=== PATIENT | male | born 1940 | race Caucasian/White ===

== ENCOUNTER → 2017-08-17 10:23 | Outpatient (CLI) | payer MEDICARE, SELFPAY ==
[2017-08-17 12:32] LABS: Hemoglobin A1c 6.9 % (4.2-6.3)
[2017-08-17 12:46] LABS: Cholesterol 114 mg/dL (200); Glucose 135 mg/dL (74-106); High Density Lipoprotein 45 mg/dL; Triglycerides 99 mg/dL; Very Low Density Lipoprotein 20 mg/dL (5-40)
== END ==
PROVIDERS: Family Provider Family Medicine; PCP Family Medicine; Visit Provider Family Medicine
DX: E11.9 Type 2 diabetes mellitus without complications (principal); E78.00 Pure hypercholesterolemia, unspecified; Z12.5 Encounter for screening for malignant neoplasm of prostate
CPT/HCPCS: 36415; 80061; 82947; 83036; 84153; G0103

== ENCOUNTER → 2018-03-15 08:55 | Outpatient (CLI) | payer MEDICARE, SELFPAY ==
[2018-03-15 10:36] LABS: Hemoglobin A1c 6.9 % (4.2-6.3)
[2018-03-15 10:40] LABS: Anion Gap 10 (5-15); BUN 15 mg/dL (7-18); BUN/Creat Ratio 13.2 RATIO (10-20); Calcium,Total 9.3 mg/dL (8.5-10.1); Chloride 108 mmol/L (98-107); Creatinine, Serum 1.14 mg/dL (0.70-1.30); EST Glomerular Filtration Rate 66 mL/min (>60); Est Glom Filt Rate - Afr Amer 80 mL/min (>60); Glucose 146 mg/dL (74-106); Potassium 4.4 mmol/L (3.5-5.1); Sodium Level 141 mmol/L (136-145)
== END ==
PROVIDERS: Family Provider Family Medicine; PCP Family Medicine; Visit Provider Family Medicine
DX: I10 Essential (primary) hypertension (principal); E11.9 Type 2 diabetes mellitus without complications
CPT/HCPCS: 36415; 80048; 83036

== ENCOUNTER → 2018-09-05 09:35 | Outpatient (CLI) | payer MEDICARE, SELFPAY ==
[2018-03-17 11:40] VITALS: BMI 31.4
[2018-09-05 12:52] LABS: Cholesterol 120 mg/dL (200); Glucose 156 mg/dL (74-106); High Density Lipoprotein 45 mg/dL; PSA,Total - Annual Screen 0.77 ng/mL (0.00-4.00); Triglycerides 112 mg/dL; Very Low Density Lipoprotein 22 mg/dL (5-40)
[2018-09-05 12:59] LABS: Hemoglobin A1c 7.7 % (4.2-6.3)
== END ==
PROVIDERS: Family Provider Family Medicine; PCP Family Medicine; Referring Provider Family Medicine; Visit Provider Family Medicine
DX: E11.9 Type 2 diabetes mellitus without complications (principal); E78.00 Pure hypercholesterolemia, unspecified; Z12.5 Encounter for screening for malignant neoplasm of prostate
CPT/HCPCS: 36415; 80061; 82947; 83036; 84153; G0103

== ENCOUNTER → 2019-05-29 06:57 | Outpatient (CLI) | payer MEDICARE, SELFPAY ==
[2019-05-07 09:39] VITALS: BMI 30.9
--- NOTE | 2019-05-29 07:02 | ECHOD_ITS ---
Reason For Study: CAD/ASHD Procedure This was a 2D Doppler, Color Flow transthoracic echocardiogram. The study was technically difficult. Contrast injection was performed. Exam performed in department. Left Ventricle Normal LV size. Left ventricular systolic function is normal. The estimated ejection fraction is 65 %. No evidence for diastolic dysfunction. No regional wall motion abnormalities noted. Right Ventricle Normal RV size. Normal systolic function. Atria The left atrium is mildly enlarged. The right atrium is mildly enlarged. No doppler evidence for ASD. Bubble contrast study negative for right to left interatrial shunt. Mitral Valve There is no mitral annular calcification. Mild focal mitral valve calcification of the anterior leaflet. Trivial mitral valve insufficiency. Tricuspid Valve Normal tricuspid valve. Trivial tricuspid valve insufficiency. Right ventricular systolic pressure estimated to be 22 mmHg. Aortic Valve Trisinus/trileaflet aortic valve. Mild focal aortic valve thickening. Mild focal aortic valve calcification. Aortic sclerosis, no stenosis. Pulmonic Valve The pulmonic valve is not well visualized. Great Vessels Borderline enlarged aortic root. Pericardium/Pleural No pericardial effusion. Medication Diluted definity 2ml given slow IV push to enhance endocardial definition. Performed a rapid injection of agitated mix of 9 cc saline and 1cc air to assess for atrial septal defect. MMode/2D Measurements & Calculations LVIDd: 4.9 cm IVSd: 1.3 cm Ao root diam: 3.9 cm LVIDs: 2.5 cm LVPWd: 0.98 cm FS: 49.0 % LAV(MOD-bp): 63.2 ml LA A4 area: 21.3 cm2 RA A4 area: 20.3 cm2 LAV(MOD-bp) Indexed: 27.7 ml/m2 LAV(MOD-sp2): 64.0 ml LAV(MOD-sp4): 62.5 ml Time Measurements MV dec time: 0.18 sec Doppler Measurements & Calculations MV E max angelo: 45.7 cm/sec Lat Peak E' Angelo: 6.0 cm/sec Med Peak E' Angelo: 5.6 cm/sec MV A max angelo: 115.6 cm/sec E/E' lat: 7.6 E/E' med: 8.2 MV E/A: 0.40 MV V2 max: 118.5 cm/sec MV P1/2t max angelo: 42.3 cm/sec Ao V2 max: 99.6 cm/sec MV max P.6 mmHg MV P1/2t: 52.8 msec Ao max P.0 mmHg MV V2 mean: 49.3 cm/sec MV dec slope: 234.5 cm/sec2 MV mean P.4 mmHg MV V2 VTI: 15.6 cm MVA(P1/2t): 4.2 cm2 LV V1 max: 91.5 cm/sec PA V2 max: 110.3 cm/sec TR max angelo: 217.6 cm/sec LV V1 max P.3 mmHg TR max P.9 mmHg Interpretation Summary The study was technically difficult. Contrast injection was performed. Left ventricular systolic function is normal. The estimated ejection fraction is 65 %. The left atrium is mildly enlarged. The right atrium is mildly enlarged. Mild focal mitral valve calcification of the anterior leaflet. Trivial mitral valve insufficiency. Trivial tricuspid valve insufficiency. Aortic sclerosis, no stenosis. Borderline enlarged aortic root. Right ventricular systolic pressure estimated to be 22 mmHg. No evidence for diastolic dysfunction. Bubble contrast study negative for right to left interatrial shunt. Ordering Physician: Haja Mccain Referring Physician: Haja Mccain Performed By: Yasir Douglas RCS
--- NOTE | 2019-05-29 12:42 | STRESSREP ---
Stress Test Report Date: 05-29-19 Procedure: Exercise tolerance test/imaging study Indications: Shortness of breath/dyspnea on exertion UT: CAD; PCI Consent: Per the patient Procedure: The patient exercised on a Nguyễn protocol for 7 minutes completing Stage II and 1 minute of Stage III achieving a peak heart rate of 157 bpm (110 % predicted maximal heart rate) with a peak blood pressure 178/76 mmHg and a peak MET capacity of 8 METs. The baseline ECG demonstrated normal sinus rhythm; nonspecific T wave abnormality. The peak exercise ECG demonstrated essu-eo-ocas nonspecific ST segment variability with resolution towards baseline beginning less than 1 minute in recovery with subsequent nonspecific T wave abnormality. There was a rare PVC during exercise and recovery and an isolated ventricular triplet during exercise and an occasional PAC during recovery. The functional capacity was considered good. There was no complaint of chest discomfort during exercise or recovery. The examination was discontinued secondary to dyspnea. Impression: 1. Technically adequate (percent predicted maximal heart rate greater than 85%) exercise tolerance test 2. Peak exercise ECG with [id number] nonspecific ST segment variability with resolution towards baseline beginning less than 1 minute in recovery with subsequent nonspecific T wave abnormality 3. There was a rare PVC during exercise and recovery and an isolated ventricular triplet during exercise and an occasional PAC during recovery 4. Nuclear images pending Myocardial perfusion imaging study: Technique: The patient was injected with 15.0 mCi of technetium 99m Cardiolite and subsequently rest SPECT Cardiolite nuclear imaging was obtained in the horizontal long, vertical long, and short axis views. The patient exercised on a Nguyễn protocol for 7 minutes completing Stage II and 1 minute of Stage III achieving a peak heart rate of 157 bpm (110 % predicted maximal heart rate) with a peak blood pressure 178/76 mmHg and a peak MET capacity of 8 METs. The patient was injected with 45.0 mCi of technetium 99m Cardiolite and subsequently stress SPECT Cardiolite nuclear imaging was obtained in the horizontal long, vertical long, and short axis views. A gated Cardiolite study at peak stress was obtained. Interpretation: Rest and stress SPECT Cardiolite nuclear imaging status post realignment, normalization, and attenuation correction, demonstrates the appearance of relative uniform tracer uptake and myocardial perfusion appearing within normal limits. There is end systolic thickening and brightening. The gated Cardiolite study demonstrates myocardial thickening and inward wall motion. The reported LVEF is 55 %. Impression: 1. Rest and stress SPECT Cardiolite nuclear imaging demonstrate relative uniform tracer uptake and myocardial perfusion appearing within normal limits. 2. The gated Cardiolite study reports an LVEF of 55 %. This note was generated with [employer] software. It may contain incorrect words, spelling, and punctuation that were not noted in checking the note before signing.
== END ==
PROVIDERS: Family Provider Family Medicine; PCP Family Medicine; Referring Provider Internal Medicine Cardiovascular Disease; Visit Provider Internal Medicine Cardiovascular Disease
DX: R06.02 Shortness of breath (principal); I25.10 Atherosclerotic heart disease of native coronary artery without angina pectoris; I25.5 Ischemic cardiomyopathy; Z95.5 Presence of coronary angioplasty implant and graft
CPT/HCPCS: 78452; 93017; 93306; A9500; Q9957; A4216; C8929

== ENCOUNTER → 2019-06-14 14:23 | Outpatient (CLI) | payer MEDICARE, SELFPAY ==
[2019-05-07 09:39] VITALS: BMI 30.9
[2019-06-14 15:21] LABS: Bacteria 0 SEEN /hpf (None Seen); Mucous, Urine 0 SEEN /hpf (<or=2+); Red Blood Cells-Urine 0 SEEN /hpf (0-5)
[2019-06-14 15:39] LABS: Color, Urine Yellow (Yellow); Glucose, Dipstick Normal (Normal); Ketone-Dipstick Negative (Negative); Leukocyte Esterase-Dipstick Negative /ul (Negative); Nitrite-Dipstick Negative (Negative); Occult Blood-Urine Negative /ul (Negative); Protein-Dipstick 15 mg/dl (Negative); Specific Gravity, Urine 1.015 (1.002-1.030); Urine Bilirubin Dipstick Negative (Negative); Urine Clarity Clear (Clear); Urine Urobilinogen Normal (Normal)
[2019-06-14 15:47] LABS: Squamous Epithelial Cells - UA 0-5 SEEN /hpf (0-5); White Blood Cells 0 SEEN /hpf (0-5)
== END ==
PROVIDERS: Family Provider Family Medicine; PCP Family Medicine; Referring Provider Family Medicine; Visit Provider Family Medicine
DX: R30.0 Dysuria (principal)
CPT/HCPCS: 81001; 87086

== ENCOUNTER → 2019-09-05 08:42 | Outpatient (CLI) | payer MEDICARE, SELFPAY ==
[2019-05-07 09:39] VITALS: BMI 30.9
[2019-09-05 10:31] LABS: ALB/GLOB Ratio 0.9 RATIO (0.9-2.4); AST(SGOT) 23 U/L (15-37); Alanine Aminotransfer ALT/SGPT 42 U/L (16-61); Albumin, Serum 3.5 g/dL (3.2-5.0); Alkaline Phosphatase 125 U/L (45-117); Anion Gap 6 (5-15); BUN 13 mg/dL (7-18); BUN/Creat Ratio 11.9 RATIO (10-20); Calcium,Total 9.2 mg/dL (8.5-10.1); Chloride 106 mmol/L (98-107); Cholesterol 120 mg/dL (200); Creatinine, Serum 1.09 mg/dL (0.70-1.30); EST Glomerular Filtration Rate 69 mL/min (>60); Est Glom Filt Rate - Afr Amer 84 mL/min (>60); Glucose 146 mg/dL (74-106); High Density Lipoprotein 50 mg/dL; Potassium 4.1 mmol/L (3.5-5.1); Protein, Total 7.5 g/dL (6.4-8.2); Sodium Level 138 mmol/L (136-145); Triglycerides 90 mg/dL; Very Low Density Lipoprotein 18 mg/dL (5-40)
[2019-09-05 10:35] LABS: Hemoglobin A1c 6.7 % (4.2-6.3)
[2019-09-05 10:52] LABS: Microalbumin,Random Urine 17.2 mg/L (NO RANGE EST.); Microalbumin:Creatinine Ratio 15.5 mg/g CRE (<30 mg/g CRE)
== END ==
PROVIDERS: PCP Family Medicine; Referring Provider Family Medicine; Visit Provider Family Medicine
DX: E11.9 Type 2 diabetes mellitus without complications (principal)
CPT/HCPCS: 36415; 80053; 80061; 82043; 82570; 83036

== ENCOUNTER → 2020-04-15 | Outpatient (CLI) | payer MEDICARE, SELFPAY ==
[2019-05-07 09:39] VITALS: BMI 30.9
[2020-04-15 10:36] LABS: ALB/GLOB Ratio 0.9 RATIO (0.9-2.4); AST(SGOT) 22 U/L (15-37); Alanine Aminotransfer ALT/SGPT 37 U/L (16-61); Albumin, Serum 3.6 g/dL (3.2-5.0); Alkaline Phosphatase 130 U/L (45-117); Anion Gap 4 (5-15); BUN 14 mg/dL (7-18); BUN/Creat Ratio 12.4 RATIO (10-20); Calcium,Total 9.2 mg/dL (8.5-10.1); Chloride 104 mmol/L (98-107); Cholesterol 115 mg/dL (200); Creatinine, Serum 1.13 mg/dL (0.70-1.30); EST Glomerular Filtration Rate 66 mL/min (>60); Est Glom Filt Rate - Afr Amer 80 mL/min (>60); Globulin 3.8 g/dL (2.2-4.2); Glucose 139 mg/dL (74-106); High Density Lipoprotein 53 mg/dL; Potassium 3.9 mmol/L (3.5-5.1); Protein, Total 7.4 g/dL (6.4-8.2); Sodium Level 138 mmol/L (136-145); Triglycerides 98 mg/dL; Very Low Density Lipoprotein 20 mg/dL (5-40)
[2020-04-15 10:38] LABS: Hemoglobin A1c 6.9 % (3.8-5.6)
[2020-04-15 10:46] LABS: Microalbumin,Random Urine 22.6 mg/L (NO RANGE EST.); Microalbumin:Creatinine Ratio 29.2 mg/g CRE (<30 mg/g CRE)
== END | disposition home or self-care (01) ==
LOC: MTLAB 07:42
PROVIDERS: PCP Family Medicine; Referring Provider Family Medicine; Visit Provider Family Medicine
DX: E11.9 Type 2 diabetes mellitus without complications (principal); Z12.5 Encounter for screening for malignant neoplasm of prostate
CPT/HCPCS: 36415; 80053; 80061; 82043; 82570; 83036; 84153; G0103

== ENCOUNTER → 2020-07-07 14:48 | Outpatient (CLI) | payer MEDICARE, SELFPAY ==
[2020-05-06 12:57] VITALS: BMI 30.3
== END ==
PROVIDERS: PCP Family Medicine; Visit Provider Family Medicine
DX: U07.1 COVID-19 (principal)
CPT/HCPCS: 87635; U0003

== ENCOUNTER → 2021-03-26 10:23 | Outpatient (CLI) | payer MEDICARE, SELFPAY | PROVIDERS: PCP Family Medicine; Referring Provider Family Medicine; Visit Provider Family Medicine | DX: Z01.84 Encounter for antibody response examination (principal) | CPT/HCPCS: 36415; 86769 ==

== ENCOUNTER → 2021-04-30 07:23 | Outpatient (CLI) | payer MEDICARE, SELFPAY ==
[2021-04-30 10:25] LABS: Absolute Lymphocyte Count 1.55 X10^3/uL (0.83-4.51); Absolute Neutrophil Count 2.6 X10^3/uL (2.0-7.7); Basophil# 0.04 X10^3/uL; Basophil% 0.9 % (0-1); Eosinophils% 2.1 % (0-5); Hematocrit 44.9 % (40-54); Lymphocyte # 1.55 X10^3/ul (0.83-4.51); Lymphocyte % 33.1 % (19-41); Mean Corp Hgb Conc 33.4 g/dL (32-36); Mean Corpuscular Hgb 30.3 pg (27.0-32.0); Mean Corpuscular Volume 90.7 fL (80-94); Mean Platelet Vol. 10.3 fl (6.2-12.0); Monocyte# 0.35 X10^3/uL; Monocyte% 7.5 % (0-10); NRBC Flagged by Analyzer 0 % (0-5); Neutrophil # 2.62 X10^3/uL (2.7-7.7); Platelet Count 175 K/mm3 (150-450); RBC Distribution Width CV 12.2 % (11.6-14.6); RBC Distribution Width SD 40.2 fl (35.1-43.9); Red Blood Count 4.95 M/mm3 (4.6-6.2); White Blood Count 4.7 K/mm3 (4.4-11.0)
[2021-04-30 10:38] LABS: ALB/GLOB Ratio 0.8 RATIO (0.9-2.4); AST(SGOT) 29 U/L (15-37); Alanine Aminotransfer ALT/SGPT 44 U/L (16-61); Albumin, Serum 3.3 g/dL (3.2-5.0); Alkaline Phosphatase 131 U/L (45-117); Anion Gap 8 (5-15); BUN 16 mg/dL (7-18); Calcium,Total 9.1 mg/dL (8.5-10.1); Chloride 106 mmol/L (98-107); Cholesterol 112 mg/dL (200); Creatinine, Serum 1.14 mg/dL (0.70-1.30); EST Glomerular Filtration Rate 66 mL/min (>60); Est Glom Filt Rate - Afr Amer 79 mL/min (>60); Globulin 3.9 g/dL (2.2-4.2); Glucose 142 mg/dL (74-106); High Density Lipoprotein 47 mg/dL; PSA,Total - Annual Screen 0.71 ng/mL (0.00-4.00); Protein, Total 7.2 g/dL (6.4-8.2); Sodium Level 139 mmol/L (136-145); Triglycerides 124 mg/dL; Very Low Density Lipoprotein 25 mg/dL (5-40)
[2021-04-30 11:08] LABS: Microalbumin,Random Urine 31.4 mg/L (NO RANGE EST.); Microalbumin:Creatinine Ratio 25.3 mg/g CRE (<30 mg/g CRE)
== END ==
PROVIDERS: Referring Provider Family Medicine; Visit Provider Family Medicine
DX: E11.9 Type 2 diabetes mellitus without complications (principal); Z12.5 Encounter for screening for malignant neoplasm of prostate
CPT/HCPCS: 36415; 80053; 80061; 82043; 82570; 84153; 85025; G0103

== ENCOUNTER → 2022-01-07 | Outpatient (CLI) | payer MEDICARE, SELFPAY ==
[2022-01-07 10:39] LABS: AST(SGOT) 30 U/L (15-37); Alanine Aminotransfer ALT/SGPT 42 U/L (16-61); Albumin, Serum 3.5 g/dL (3.2-5.0); Alkaline Phosphatase 121 U/L (45-117); Anion Gap 6 (5-15); BUN 14 mg/dL (7-18); BUN/Creat Ratio 12.3 RATIO (10-20); Calcium,Total 9.4 mg/dL (8.5-10.1); Chloride 106 mmol/L (98-107); Creatinine, Serum 1.14 mg/dL (0.70-1.30); EST Glomerular Filtration Rate 65 mL/min (>60); Est Glom Filt Rate - Afr Amer 79 mL/min (>60); Globulin 3.5 g/dL (2.2-4.2); Glucose 148 mg/dL (74-106); Potassium 4.3 mmol/L (3.5-5.1); Sodium Level 138 mmol/L (136-145)
== END | disposition home or self-care (01) ==
PROVIDERS: PCP Family Medicine; Referring Provider Nurse Practitioner Family; Visit Provider Nurse Practitioner Family
DX: E11.9 Type 2 diabetes mellitus without complications (principal)
CPT/HCPCS: 36415; 80053

== ENCOUNTER → 2022-07-06 | Outpatient (CLI) | payer MEDICARE, SELFPAY ==
[2022-07-06 12:16] LABS: Mucous, Urine 0 SEEN /hpf (<or=2+)
[2022-07-06 15:15] LABS: Color, Urine Yellow (Yellow); Glucose, Dipstick 50 mg/dl (Normal); Ketone-Dipstick Negative (Negative); Leukocyte Esterase-Dipstick 25 /ul (Negative); Nitrite-Dipstick Negative (Negative); Occult Blood-Urine 250 /ul (Negative); Protein-Dipstick 30 mg/dl (Negative); Specific Gravity, Urine 1.015 (1.002-1.030); Urine Bilirubin Dipstick Negative (Negative); Urine Clarity Sl. Cloudy (Clear); Urine Urobilinogen 1 mg/dl (Normal)
[2022-07-06 15:22] LABS: Bacteria 1+ /hpf (None Seen); Red Blood Cells-Urine 25-50 SEEN /hpf (0-5); Squamous Epithelial Cells - UA 0-5 SEEN /hpf (0-5); White Blood Cells 0-5 SEEN /hpf (0-5)
== END | disposition home or self-care (01) ==
LOC: LABSPEC 12:15
PROVIDERS: Family Medicine; PCP Family Medicine; Visit Provider Family Medicine
DX: R31.9 Hematuria, unspecified (principal)
CPT/HCPCS: 81001; 87086; 87088

== ENCOUNTER → 2022-08-03 | Outpatient (CLI) | payer MEDICARE, SELFPAY ==
[2022-08-03 12:44] LABS: Color, Urine Yellow (Yellow); Glucose, Dipstick 250 mg/dl (Normal); Ketone-Dipstick Negative (Negative); Leukocyte Esterase-Dipstick 25 /ul (Negative); Nitrite-Dipstick Negative (Negative); Occult Blood-Urine 25 /ul (Negative); Protein-Dipstick 30 mg/dl (Negative); Urine Bilirubin Dipstick Negative (Negative); Urine Clarity Clear (Clear); Urine Urobilinogen Normal (Normal)
[2022-08-04 08:39] LABS: Bacteria 0 SEEN /hpf (None Seen); Mucous, Urine 0 SEEN /hpf (<or=2+)
[2022-08-04 09:10] LABS: Red Blood Cells-Urine 0-5 SEEN /hpf (0-5); Squamous Epithelial Cells - UA 0-5 SEEN /hpf (0-5); White Blood Cells 0-5 SEEN /hpf (0-5)
== END | disposition home or self-care (01) ==
LOC: MFPLAB 10:00
PROVIDERS: PCP Family Medicine; Referring Provider Family Medicine; Visit Provider Family Medicine
DX: R31.9 Hematuria, unspecified (principal)
CPT/HCPCS: 81001; 81002

== ENCOUNTER → 2022-08-24 | Outpatient (CLI) | payer MEDICARE, SELFPAY ==
--- NOTE | 2022-08-24 09:41 | STRESSREP_ITS ---
Stress Test Report Date: 08-24-2022 Procedure: Exercise tolerance test/imaging study Indications: Shortness of breath/dyspnea on exertion; CAD; PCI; cardiac ectop y/PVCs Consent: Per the patient Procedure: The patient exercised on a Nguyễn protocol for 6 minutes completing Stage II achieving a peak heart rate of 146 bpm (105% predicted maximal heart rate) with resting blood pressure of 160/82 mmHg and a peak blood pressure 200/62 mmHg and a peak MET capacity of 7 METs. The baseline ECG demonstrated normal sinus rhythm; poor R wave progression; nonspecific ST/T wave abnormality. The peak exercise ECG demonstrated no obvious ECG changes. There were occasional PVCs pretest, during exercise, and recovery. The functional capacity was considered good. There was no complaint of chest discomfort during exercise or recovery. The examination was discontinued secondary to dyspnea. Impression: 1. Technically adequate (percent predicted maximal heart rate greater than 85%) exercise tolerance test 2. Peak exercise ECG with no obvious ECG changes 3. There were occasional PVCs pretest, during exercise, and recovery 4. Nuclear images pending Myocardial perfusion imaging study: Technique: The patient was injected with 14.1 mCi of technetium 99m Cardiolite and subsequently rest SPECT Cardiolite nuclear imaging was obtained in the horizontal long, vertical long, and short axis views. The patient exercised on a Nguyễn protocol for 6 minutes completing Stage II achieving a peak heart rate of 146 bpm (105% predicted maximal heart rate) with resting blood pressure of 160/82 mmHg and a peak blood pressure 200/62 mmHg and a peak MET capacity of 7 METs. The patient was injected with 44.4 mCi of technetium 99m Cardiolite and subsequently stress SPECT Cardiolite nuclear imaging was obtained in the horizontal long, vertical long, and short axis views. A gated Cardiolite study at peak stress was obtained. Interpretation: Rest and stress SPECT Cardiolite nuclear imaging status post realignment, normalization, and attenuation correction, demonstrates the appearance of relative uniform tracer uptake and myocardial perfusion appearing within normal limits. There is end systolic thickening and brightening. The gated Cardiolite study demonstrates myocardial thickening and inward wall motion. The reported LVEF is 57%. Impression: 1. Rest and stress SPECT Cardiolite nuclear imaging demonstrate relative uniform tracer uptake and myocardial perfusion appearing within normal limits. 2. The gated Cardiolite study reports an LVEF of 57%. This note was generated with [employer] software. It may contain incorrect words, spelling, and punctuation that were not noted in checking the note before signing.
== END | disposition home or self-care (01) ==
PROVIDERS: PCP Family Medicine; Visit Provider Internal Medicine Cardiovascular Disease
DX: I25.10 Atherosclerotic heart disease of native coronary artery without angina pectoris (principal); R06.00 Dyspnea, unspecified; Z95.5 Presence of coronary angioplasty implant and graft
CPT/HCPCS: 78452; 93017; A9500; A4216

== ENCOUNTER → 2022-10-15 | Outpatient (CLI) | payer MEDICARE, SELFPAY ==
[2022-10-15 07:42] LABS: Bacteria 0 SEEN /hpf (None Seen); Mucous, Urine 0 SEEN /hpf (<or=2+); Squamous Epithelial Cells - UA 0 SEEN /hpf (0-5); White Blood Cells 0 SEEN /hpf (0-5)
[2022-10-15 10:32] LABS: Color, Urine Yellow (Yellow); Glucose, Dipstick 250 mg/dl (Normal); Leukocyte Esterase-Dipstick Negative /ul (Negative); Nitrite-Dipstick Negative (Negative); Occult Blood-Urine 50 /ul (Negative); Protein-Dipstick 30 mg/dl (Negative); Urine Bilirubin Dipstick Negative (Negative); Urine Clarity Clear (Clear); Urine Urobilinogen Normal (Normal)
[2022-10-15 10:39] LABS: Hemoglobin A1c 9.4 % (3.8-5.6)
[2022-10-15 10:47] LABS: AST(SGOT) 21 U/L (15-37); Alanine Aminotransfer ALT/SGPT 32 U/L (16-61); Albumin, Serum 3.5 g/dL (3.2-5.0); Alkaline Phosphatase 138 U/L (45-117); Anion Gap 6 (5-15); BUN 19 mg/dL (7-18); BUN/Creat Ratio 16.4 RATIO (10-20); Calcium,Total 9.2 mg/dL (8.5-10.1); Chloride 107 mmol/L (98-107); Cholesterol 104 mg/dL (200); Creatinine, Serum 1.16 mg/dL (0.70-1.30); EST Glomerular Filtration Rate 64 mL/min (>60); Est Glom Filt Rate - Afr Amer 78 mL/min (>60); Globulin 3.5 g/dL (2.2-4.2); Glucose 187 mg/dL (74-106); High Density Lipoprotein 44 mg/dL; Sodium Level 139 mmol/L (136-145); Triglycerides 105 mg/dL; Very Low Density Lipoprotein 21 mg/dL (5-40)
[2022-10-15 10:52] LABS: Ketone-Dipstick Negative (Negative); Specific Gravity, Urine 1.025 (1.002-1.030)
[2022-10-15 11:50] LABS: Red Blood Cells-Urine 0-5 SEEN /hpf (0-5)
== END | disposition home or self-care (01) ==
LOC: MTLAB 07:38
PROVIDERS: PCP Family Medicine; Referring Provider Family Medicine; Visit Provider Family Medicine
DX: E11.9 Type 2 diabetes mellitus without complications (principal); E78.00 Pure hypercholesterolemia, unspecified; R31.9 Hematuria, unspecified
CPT/HCPCS: 36415; 80053; 80061; 81001; 83036

== ENCOUNTER → 2022-11-05 | Outpatient (CLI) | payer MEDICARE, SELFPAY ==
[2022-11-05 17:03] LABS: Mucous, Urine 0 SEEN /hpf (<or=2+); Squamous Epithelial Cells - UA 0 SEEN /hpf (0-5)
[2022-11-05 17:58] LABS: Absolute Neutrophil Count 3.9 X10^3/uL (2.0-7.7); Basophil# 0.04 X10^3/uL; Basophil% 0.6 % (0-1); Color, Urine Red (Yellow); Eosinophil# 0.12 X10^3/uL; Eosinophils% 1.9 % (0-5); Glucose, Dipstick 50 mg/dl (Normal); Hematocrit 43.9 % (40-54); Ketone-Dipstick 5 mg/dl (Negative); Leukocyte Esterase-Dipstick 25 /ul (Negative); Lymphocyte % 28.3 % (19-41); Mean Corp Hgb Conc 34.2 g/dL (32-36); Mean Corpuscular Hgb 31.3 pg (27.0-32.0); Mean Corpuscular Volume 91.5 fL (80-94); Mean Platelet Vol. 10.2 fl (6.2-12.0); Monocyte# 0.47 X10^3/uL; Monocyte% 7.4 % (0-10); NRBC Flagged by Analyzer 0 % (0-5); Neutrophil # 3.91 X10^3/uL (2.7-7.7); Neutrophil % 61.5 % (47-70); Nitrite-Dipstick Positive (Negative); Occult Blood-Urine 250 /ul (Negative); Platelet Count 175 K/mm3 (150-450); Protein-Dipstick 100 mg/dl (Negative); RBC Distribution Width CV 12.1 % (11.6-14.6); RBC Distribution Width SD 40.7 fl (35.1-43.9); Urine Bilirubin Dipstick Negative (Negative); Urine Clarity Cloudy (Clear); Urine Urobilinogen 1 mg/dl (Normal); Urine pH 6.5 (5.0 - 8.0); White Blood Count 6.4 K/mm3 (4.4-11.0)
[2022-11-05 18:14] LABS: Bacteria RARE /hpf (None Seen); Red Blood Cells-Urine > 100 SEEN /hpf (0-5); White Blood Cells 0-5 SEEN /hpf (0-5)
[2022-11-05 18:35] LABS: AST(SGOT) 27 U/L (15-37); Alanine Aminotransfer ALT/SGPT 38 U/L (16-61); Albumin, Serum 3.7 g/dL (3.2-5.0); Alkaline Phosphatase 150 U/L (45-117); Anion Gap 3 (5-15); BUN 18 mg/dL (7-18); BUN/Creat Ratio 16.5 RATIO (10-20); Calcium,Total 9.9 mg/dL (8.5-10.1); Chloride 107 mmol/L (98-107); Creatinine, Serum 1.09 mg/dL (0.70-1.30); EST Glomerular Filtration Rate 69 mL/min (>60); Est Glom Filt Rate - Afr Amer 83 mL/min (>60); Globulin 3.8 g/dL (2.2-4.2); Glucose 177 mg/dL (74-106); Potassium 3.6 mmol/L (3.5-5.1); Protein, Total 7.5 g/dL (6.4-8.2); Sodium Level 136 mmol/L (136-145)
== END | disposition home or self-care (01) ==
LOC: MFPLAB 17:01
PROVIDERS: PCP Family Medicine; Visit Provider Family Medicine
DX: R31.9 Hematuria, unspecified (principal)
CPT/HCPCS: 36415; 80053; 81001; 85025; 87086

== ENCOUNTER → 2022-11-16 | Outpatient (CLI) | payer MEDICARE, SELFPAY ==
[2022-11-16 17:53] LABS: Bacteria 0 SEEN /hpf (None Seen); Mucous, Urine 0 SEEN /hpf (<or=2+)
[2022-11-16 18:06] LABS: Color, Urine Yellow (Yellow); Glucose, Dipstick 50 mg/dl (Normal); Ketone-Dipstick 5 mg/dl (Negative); Leukocyte Esterase-Dipstick 25 /ul (Negative); Nitrite-Dipstick Negative (Negative); Occult Blood-Urine 150 /ul (Negative); Protein-Dipstick 15 mg/dl (Negative); Specific Gravity, Urine 1.015 (1.002-1.030); Urine Bilirubin Dipstick Negative (Negative); Urine Clarity Sl. Cloudy (Clear); Urine Urobilinogen 1 mg/dl (Normal)
[2022-11-16 18:32] LABS: Red Blood Cells-Urine 10-25 SEEN /hpf (0-5); White Blood Cells 0-5 SEEN /hpf (0-5)
[2022-11-16 18:33] LABS: Squamous Epithelial Cells - UA 0-5 SEEN /hpf (0-5); Transitional Epithelial - Ur 0 SEEN /hpf (0-5)
[2022-11-16 18:36] LABS: Anion Gap 7 (5-15); BUN 21 mg/dL (7-18); BUN/Creat Ratio 10.7 RATIO (10-20); Calcium,Total 9.4 mg/dL (8.5-10.1); Chloride 108 mmol/L (98-107); Creatinine, Serum 1.96 mg/dL (0.70-1.30); EST Glomerular Filtration Rate 35 mL/min (>60); Est Glom Filt Rate - Afr Amer 42 mL/min (>60); Glucose 87 mg/dL (74-106); PSA,Total- Diagnostic 1.26 ng/mL (0.0-4.0); Potassium 4.4 mmol/L (3.5-5.1); Sodium Level 136 mmol/L (136-145)
== END | disposition home or self-care (01) ==
PROVIDERS: PCP Family Medicine; Referring Provider Family Medicine; Visit Provider Family Medicine
DX: R31.9 Hematuria, unspecified (principal); N40.2 Nodular prostate without lower urinary tract symptoms
CPT/HCPCS: 36415; 80048; 81001; 84153; 87086

== ENCOUNTER → 2022-11-17 | Outpatient (CLI) | payer MEDICARE, SELFPAY ==
--- NOTE | 2022-11-17 10:21 | US_ITS ---
STUDY: RENAL ULTRASOUND - COMPLETE REASON FOR EXAM: Male, 82 years old. Gross hematuria TECHNIQUE: Ultrasound evaluation of the kidneys was performed with real-time and static gaming-scale imaging. COMPARISON: None. FINDINGS: RIGHT KIDNEY: Normal location of the right kidney, which is normal in size. The right kidney measures 12.4 x 5.6 x 6.9 cm. There is a normal cortex of the right kidney. The renal cortex measures 1.5 cm. There is no right renal mass or cyst. There are no right renal calculi. There is mild hydronephrosis of the right kidney. DISTAL RIGHT URETER: There is non-visualization of the distal right ureter. There is no demonstrated right ureterovesical junction calculus. There is a visualized right ureteral jet. LEFT KIDNEY: Normal location of the left kidney, which is normal in size. The left kidney measures 12.6 x 4.7 x 5.9 cm. There is a normal cortex of the left kidney. The renal cortex measures 1.7 cm. There is a simple 1.6 cm cyst. There are no left renal calculi. There is mild hydronephrosis of the left kidney. DISTAL LEFT URETER: There is non-visualization of the distal left ureter. There is no demonstrated left ureterovesical junction calculus. There is a visualized left ureteral jet. AORTA: There is no elongation or tortuosity of the abdominal aorta. I.V.C.: The IVC is patent. BLADDER: The distended urinary bladder has a volume of 658.69 ml. The empty urinary bladder has a volume of 318.30 ml. There is a normal wall thickness of the distended urinary bladder. There are 3 separate lesions within the left lateral bladder wall largest measures 2.4 x 2.2 x 1.3 cm. Bladder neoplasm needs to be excluded. Recommend further evaluation with cystoscopy. There are no demonstrated bladder calculi. US/Kidney and Bladder IMPRESSION: Abnormal hypoechoic lesions within the left lateral bladder wall. Further evaluation with cystoscopy recommended, bladder neoplasm needs to be excluded. Symmetric mild hydronephrosis, no obstructing stone or stricture noted, findings most likely due to bladder issues Simple left renal cyst, no specific follow-up needed Abnormally large postvoid residual places the patient risk for urinary reflux and UTI Electronically Signed: Breezy Wayne MD at 14:11 EDT ,
== END | disposition home or self-care (01) ==
LOC: US 10:19
PROVIDERS: PCP Family Medicine; Referring Provider Family Medicine; Visit Provider Family Medicine
DX: R31.9 Hematuria, unspecified (principal)
CPT/HCPCS: 76770

== ENCOUNTER 2022-12-24 10:50 | Day surgery (SDC) | payer MEDICARE, SELFPAY ==
--- NOTE | 2022-12-20 07:36 | EKG12_ITS ---
Test Reason : PRE OP Blood Pressure : / mmHG Vent. Rate : 068 BPM Atrial Rate : 000 BPM P-R Int : 000 ms QRS Dur : 078 ms QT Int : 434 ms P-R-T Axes : 000 -38 -74 degrees QTc Int : 461 ms Sinus rhythm Left axis deviation Marked ST abnormality, possible inferior subendocardial injury Abnormal ECG Confirmed by JEFF ART, MAXIMILIANO ([id number]), medical editor LACHELLE APPIAH ([id number]) on 12/21/2022 9:02:39 AM Referred By: Lavon Garcia Confirmed By:BRIANA AGUILAR MD
[2022-12-24] VITALS (9 sets, daily range): BP systolic 149–174; BP diastolic 71–84; PULSE 53–64; RESP 14–18; TEMP 35.8–36.2; O2SAT 96–100; BMI 30.2
[2022-12-24] MEDS: Lactated Ringers 1,000 ML 15 ML IV ×2 (11:42→15:34)
[2022-12-24 11:46] LABS: Bedside Glucose 126 mg/dL (74-106)
--- NOTE | 2022-12-24 13:00 | BLB_PTH ---
PATIENT: TATUM MARCUS LOC: [facility] [place] U#:[id number] AGE/SX: 82/M ROOM: RE12/24/[address]: Dr. Lavon Garcia MD : 1940 BED: DIS: 12/24/2022 SPEC #: [id number] RECD: 12/24/22 16:26 STATUS: GILES RE #: [id number] ZAIDA: 12/24/22 13:[address]: Lavon Garcia DEPT: SURGICAL PATHOLOGY RECD BY: Alissa Tobias ENTERED: 12/27/22 08:47 SP TYPE: TURB OTHR DR: Dr. Margarito Robison MD Tissues: Urinary bladder, NOS Procedures: Surgery Specimen Level V HEADER OPERATION: Transurethral resection of large bladder tumor with Olympus PRE-OP DIAGNOSIS: Neoplasm of bladder, gross hematuria TISSUE SUBMITTED: Bladder tumor MICROSCOPIC DIAGNOSIS Urinary bladder tumor, transurethral resection: Papillary urothelial carcinoma. See cancer synoptic report below. AM:kwabena 12/28/2022 COMMENT BLADDER CANCER (TUR) SUMMARY Procedure: Transurethral resection of bladder tumor (TURBT) Tumor site: Not specified Histologic type: Papillary urothelial carcinoma Associated epithelial lesions: None identified Histologic grade: 1-3/3 Tumor configuration: Papillary Muscularis propria presence: Detrusor muscle present and free of carcinoma. Lymphvascular invasion: Not identified Tumor extension: Confined to urothelium. Additional pathologic findings: None. The above summary is in compliance with [employer] [place] Pathology (CAP) Cancer Protocols Checklist and [place] Joint Committee on Cancer (AJCC), Staging Manual, 8th Ed. Sections show mostly grade 1-2 papillary urothelial carcinoma with focal grade 3 nuclei. Clinical correlation is suggested. MICROSCOPIC DESCRIPTION Slides are reviewed. GROSS DESCRIPTION Received in fixative is one container labeled with the patient's name and designated bladder tumor. The specimen consists of multiple irregular fragments of friable light cortés soft tissue that in aggregate measure 2.5 x 2.0 x 0.2 cm. The specimen is totally submitted in one cassette. / AM:kwabena 12/27/2022 TC:0 CPT: 46424
--- NOTE | 2022-12-24 13:20 | HP.PCM_ITS ---
HPI - General HPI Narrative TATUM MARCUS, is a 82 M who presents for a transurethral resection of a large bladder mass instillation Mitomycin-C [facility] Medical History (Updated 12/24/22 @ 13:[address] Lavon Garcia MD) Alcohol use Atherosclerotic heart disease of [place] coronary artery without angina pectoris Cardiology follow-up encounter COVID-19 Former smoker High cholesterol History of echocardiogram History of kidney stones History of stress test Ischemic cardiomyopathy Premature atrial contractions Premature ventricular contraction Prostate disease Pure hypercholesterolemia Sinus bradycardia Type 2 diabetes mellitus Wears partial dentures Home Medications aspirin 81 mg chewable tablet 81 mg PO DAILY@0800 10/08/13 [History Last Taken 12/17/22] lisinopril 20 mg-hydrochlorothiazide 12.5 mg tablet 1 tab PO DAILY HTN 10/08/13 [History Last Taken 10/09/13] omega-3 fatty acids-fish oil 340 mg-1,000 mg capsule 1 ea PO BID SUPPLEMENT 10/08/13 [History Last Taken 12/17/22] coenzyme Q10 100 mg capsule (Co Q-10) 100 mg PO QDAY 02/16/18 [History Last Taken Unknown] red yeast rice 600 mg tablet 600 mg PO MOFR SUPPLEMENT 02/16/18 [History Last Taken Unknown] metformin 500 mg tablet 500 mg PO BID BLOOD GLUCOSE 05/07/19 [History Last Taken Unknown] metoprolol tartrate 25 mg tablet 12.5 mg PO BID 05/07/19 [History Last Taken 12/24/22] ascorbic acid (vitamin C) 1,000 mg tablet 1 g PO QWEEK 05/11/21 [History Last Taken Unknown] atorvastatin 40 mg tablet 80 mg PO QHS HLD 12/17/22 [History Last Taken Unknown] cholecalciferol (vitamin D3) 50 mcg (2,000 unit) tablet (Vitamin D3) 50 mcg PO DAILY 12/17/22 [History Last Taken Unknown] curcumin-phosphatidylcholine 500 mg capsule 500 mg PO DAILY 12/17/22 [History Last Taken Unknown] saw palmetto 320 mg capsule 320 mg PO DAILY 12/17/22 [History Last Taken Unknown] tamsulosin 0.4 mg capsule 0.4 mg PO QHS 12/17/22 [History Last Taken Unknown] vitamin B complex 1 tab PO DAILY 12/17/22 [History Last Taken Unknown] zinc 50 mg tablet 50 mg PO DAILY 12/17/22 [History Last Taken Unknown] ciprofloxacin HCl 500 mg tablet (Cipro) 500 mg PO BID #14 tabs 12/24/22 [Rx Last Taken Unknown] oxycodone-acetaminophen 5 mg-325 mg tablet (Endocet) 1 tab PO Q6H PRN pain 7 days #14 tabs 12/24/22 [Rx Last Taken Unknown] Allergy/AdvReac Type Severity Reaction Status Date / Time No Known Allergies Allergy Verified 12/24/22 11:39 Family History Sister CAD (coronary artery disease) CVA (cerebral vascular accident) Diabetes Father Parkinsons disease Mother Cancer kidney Surgical History (Updated 12/17/22 @ 13:55 by Sri Caldwell) History of colonoscopy History of hand surgery Postsurgical percutaneous transluminal coronary angioplasty (PTCA) status (~10/09/13) Presence of stent in coronary artery (~10/09/13) Social History Smoking Status: Former smoker how long ago did patient quit smokin years ago alcohol intake: current alcohol intake frequency: a few times a week Alcohol type: beer and wine caffeine: Yes Type: coffee Number of servings: 3 what type of physical activity do you participate in: walking and bicycling frequency: 3-4 times per week duration: 30-45 minutes/day Vital Signs Vital Signs Vital Signs: 12/24/22 11:42 12/24/22 11:42 Temperature 97.1 F L Temperature Source Temporal Pulse Rate 56 L Respiratory Rate 18 Respiratory Pattern Normal Blood Pressure 149/72 H Blood Pressure Mean 97 Blood Pressure Source Monitor Blood Pressure Position Semi-Fowlers Blood Pressure Location Right Arm Pulse Ox 99 Oxygen Delivery Method Room Air Weight Weight: 103.7 kg Body Mass Index (BMI) 30.2 Results Lab / Micro Data Labs: Laboratory Results - last 24 hr 12/24/22 11:28: POC Glucose 126 H
--- NOTE | 2022-12-24 13:21 | DCINST_ITS ---
Discharge Instructions Diet Discharge Diet: No restrictions, Light diet - advance as tolerated and Soft diet Activity Discharge Activity: May Not Drive Lifting Restrictions: no heavy lifting Follow Up Care Please Follow Up With: Lavon Garcia MD When: if you have a [place] call for appt next to remove if not then follow up in 2 -3 weeks. Test Results: Test results from this visit will be discussed in further detail at your follow- up appointment, if applicable. Discharge Plan Admission Primary Reason for Your Visit: resection of bladder mass Attending Provider: Lavon Garcia Primary Care Provider: Mendel Robison Discharge Orders/Prescriptions Prescriptions: New ciprofloxacin HCl [Cipro] 500 mg tablet 500 mg PO BID Qty: 14 0RF oxycodone-acetaminophen [Endocet] 5-325 mg tablet 1 tab PO Q6H PRN (Reason: pain) 7 Days Qty: 14 0RF Continued coenzyme Q10 [Co Q-10] 100 mg capsule 100 mg PO QDAY red yeast rice 600 mg tablet 600 mg tablet 600 mg PO MOFR ascorbic acid (vitamin C) 1,000 mg tablet 1 g PO QWEEK lisinopril-hydrochlorothiazide 1 TABLET tablet 1 tab PO DAILY omega-3 fatty acids-fish oil 1 EACH capsule 1 ea PO BID metformin 500 mg tablet 500 mg PO BID metoprolol tartrate 25 mg tablet 12.5 mg PO BID vitamin B complex Tablet 1 tab PO DAILY zinc 50 mg Tablet 50 mg PO DAILY saw palmetto 320 mg Capsule 320 mg PO DAILY Rx Instructions: give with food (meal/snack) cholecalciferol (vitamin D3) [Vitamin D3] 50 mcg (2,000 unit) Tablet 50 mcg PO DAILY curcumin-phosphatidylcholine 500 mg Capsule 500 mg PO DAILY atorvastatin 40 mg tablet 80 mg PO QHS tamsulosin 0.4 mg Capsule 0.4 mg PO QHS Held aspirin 81 MG tablet,chewable 81 mg PO DAILY@0800 Hold Instructions: Resume on 01/07/23. Referrals / Follow Up: Mendel Robison MD [Primary Care Provider] - Lavon Garcia MD [Med Staff - Active Staff] - Disposition Disposition (needs filled in before D/C Order can be placed): Home, Self Care
[2022-12-24] MEDS: Cefazolin 2 GM in 0.9% Normal Saline 100 ML IV (13:30)
[2022-12-24] MEDS: Lubricating Jelly 60 GM Tube 30 GM (13:56)
--- NOTE | 2022-12-24 14:42 | OP.PCM_ITS ---
Report of Operation Date of Procedure: 12/24/22 Pre-Operative Diagnosis: Large bladder mass bladder cancer Post-Operative Diagnosis: The same Surgery/Procedure Performed:: Transurethral resection of a large bladder mass, instillation of Mitomycin-C postop chemo treatment, insertion of a left stent Description of Surgical Findings:: Indication is an 82-year-old healthy male who suddenly developed gross hematuria on cystoscopy was found to have a mass that was fairly large inside the bladder occupying the posterior aspect trigone left lateral wall and left trigone area of the bladder. So today presents for resection of this tumor. Patient was taken back to the operating room after induction of anesthesia he was placed in dorsolithotomy position went into the bladder with a 21 [place] rigid cystourethroscope the entire length of the urethra was clear there was a small angular area in the urethra when I went in with the cystoscope at the open this up and then again a minor area of narrowness and the urethra of the once I got to that area with a 21 [place] scope then I went into the prostate the prostate was slightly enlarged verumontanum was identified he had a enlarged median lobe and bilateral hypertrophy. Went once inside the bladder then immediate tumor was identified this was occupying posterior aspect of the bladder trigone the bladder left trigone the bladder and left wall the bladder. I did measure the tumor prior to resection the tumor measured 5 cm laterally and 5 cm cranial necrotic caudally and about 2 cm deep large tumor the bladder was heavily trabeculated and the tumor was involved in the trabeculations in and out of the folds had many saccules. I first identified the right ureteral orifice without any difficulty but the left ureteral orifice was covered by tumor. So I started the resection in the lateral aspect of the tumor I worked my way laterally across the tumor until I got down to the muscle fibers it did not appear to be in muscle invasive tumor appeared to be superficial in nature and as I was resecting to I would get I would resect through the thick muscle band fibers between the duct revealed trabeculation but then between the trabeculation was very thin-walled areas of the bladder that had to be thinned out quite a bit to get the tumor out and then I resected my way down towards the trigone and then once the entire tumor was resected and the little tiny pieces all the pieces were evacuated out and cauterized extensively I then went looking for the left ureteral orifice which identified identified but it looks like it been since it was covered with tumor had I was closed off so I could get a wire into it so then I had to resect the ureteral orifice on the left side and then after this this was done then I put a wire up through the ureteral orifice and put a stent up on the left side to allow this to heal naturally so the one scarred down. It was a complete resection of the tumor after this was done there was no more bleeding and I then placed 40 mg of 40 cc of Mitomycin-C into the bladder for post chemo resection dose and we decided to put a catheter in since it is quite a large resection and also there was some minor tear along the urethra when I first went with the scope to let this heal up so put the catheter into the 18 [place] catheter and healthy go home with a week but 10 days with his catheter to let it heal up and to get the catheter out in the office in 10 days and no other get the stent out a month later. So was a large tumor but appeared to be a complete resection it appeared to be a superficial tumor noninvasive and was involving the left ureteral orifice at the put a stent on the left side. Surgeon: Lavon Garcia Type of Anesthesia: General Drains: obrien 18 fr Admit VTE Documentation VTE Present on Admission: No VTE Mechan Device Prophylaxis: SCD's VTE Pharm Prophylaxis ordered?: No
[2022-12-24 15:21] LABS: Bedside Glucose 120 mg/dL (74-106)
[2022-12-24] MEDS: Lactated Ringers 1,000 ML 75 ML IV (15:54)
[2022-12-24] MEDS: HYDROcodone Bitartrate/Apap 5/325 Tablet PO (16:19)
== END 2022-12-24 17:35 | disposition home or self-care (01) ==
LOC: SDC 10:50 → AC 10:54
PROVIDERS: PCP Family Medicine; Referring Provider Urology; Visit Provider Urology
PROC: 0TBB8ZZ Excision of Bladder, Via Natural or Artificial Opening Endoscopic (ICD-10-PCS; CPT 52235; principal; 2022-12-24 12:50)
DX: C67.9 Malignant neoplasm of bladder, unspecified (principal); E11.9 Type 2 diabetes mellitus without complications; I25.10 Atherosclerotic heart disease of native coronary artery without angina pectoris; I25.5 Ischemic cardiomyopathy; E78.00 Pure hypercholesterolemia, unspecified; Z79.82 Long term (current) use of aspirin; Z79.899 Other long term (current) drug therapy; Z87.891 Personal history of nicotine dependence
CPT/HCPCS: 52235; 52332; 00912; 82962; 88307; 93005; J7120; C1769; C2617; J2405; J3490; J9280

== ENCOUNTER → 2023-01-27 | Outpatient (CLI) | payer MEDICARE, SELFPAY ==
[2023-01-27 16:00] LABS: Absolute Lymphocyte Count 0.73 X10^3/uL (0.83-4.51); Absolute Neutrophil Count 7.9 X10^3/uL (2.0-7.7); Basophil# 0.04 X10^3/uL; Basophil% 0.4 % (0-1); Hematocrit 45.9 % (40-54); Hemoglobin 15.6 g/dL (13.0-16.5); Lymphocyte # 0.73 X10^3/ul (0.83-4.51); Lymphocyte % 7.7 % (19-41); Mean Corpuscular Hgb 31.3 pg (27.0-32.0); Mean Platelet Vol. 10.5 fl (6.2-12.0); Monocyte# 0.83 X10^3/uL; Monocyte% 8.7 % (0-10); NRBC Flagged by Analyzer 0 % (0-5); Neutrophil # 7.88 X10^3/uL (2.7-7.7); Neutrophil % 82.7 % (47-70); Platelet Count 146 K/mm3 (150-450); RBC Distribution Width CV 12.2 % (11.6-14.6); RBC Distribution Width SD 41.9 fl (35.1-43.9); Red Blood Count 4.99 M/mm3 (4.6-6.2); White Blood Count 9.5 K/mm3 (4.4-11.0)
[2023-01-27 16:13] LABS: Vitamin B12 304 pg/mL (211-911)
[2023-01-27 16:34] LABS: ALB/GLOB Ratio 0.8 RATIO (0.9-2.4); AST(SGOT) 11 U/L (15-37); Alanine Aminotransfer ALT/SGPT 19 U/L (16-61); Albumin, Serum 3.3 g/dL (3.2-5.0); Alkaline Phosphatase 144 U/L (45-117); Anion Gap 8 (5-15); BUN 18 mg/dL (7-18); Calcium,Total 9.2 mg/dL (8.5-10.1); Chloride 101 mmol/L (98-107); Cholesterol 123 mg/dL (200); EST Glomerular Filtration Rate 48 mL/min (>60); Est Glom Filt Rate - Afr Amer 58 mL/min (>60); Globulin 4.2 g/dL (2.2-4.2); Glucose 202 mg/dL (74-106); High Density Lipoprotein 52 mg/dL; Potassium 4.4 mmol/L (3.5-5.1); Protein, Total 7.5 g/dL (6.4-8.2); Sodium Level 134 mmol/L (136-145); Thyroid Stim Hormone (TSH) 0.23 uIU/mL (0.358-3.74); Triglycerides 96 mg/dL; Uric Acid 4.3 mg/dL (3.5-7.2); Very Low Density Lipoprotein 19 mg/dL (5-40)
== END | disposition home or self-care (01) ==
PROVIDERS: PCP Family Medicine; Referring Provider Family Medicine; Visit Provider Family Medicine
DX: R30.0 Dysuria (principal); E11.69 Type 2 diabetes mellitus with other specified complication; E11.65 Type 2 diabetes mellitus with hyperglycemia; M10.9 Gout, unspecified; N41.9 Inflammatory disease of prostate, unspecified
CPT/HCPCS: 36415; 80053; 80061; 82607; 84443; 84550; 85025; 87086; 87088

== ENCOUNTER → 2023-02-18 | Outpatient (CLI) | payer MEDICARE, SELFPAY ==
[2023-02-18 15:34] LABS: Mucous, Urine 0 SEEN /hpf (<or=2+)
[2023-02-18 15:52] LABS: Color, Urine Yellow (Yellow); Glucose, Dipstick 100 mg/dl (Normal); Ketone-Dipstick Negative (Negative); Leukocyte Esterase-Dipstick 500 /ul (Negative); Nitrite-Dipstick Negative (Negative); Occult Blood-Urine 150 /ul (Negative); Protein-Dipstick 30 mg/dl (Negative); Specific Gravity, Urine 1.015 (1.002-1.030); Urine Bilirubin Dipstick Negative (Negative); Urine Clarity Clear (Clear); Urine Urobilinogen Normal (Normal)
[2023-02-18 16:15] LABS: Bacteria 2+ /hpf (None Seen); Red Blood Cells-Urine 5-10 SEEN /hpf (0-5); White Blood Cells >100 SEEN /hpf (0-5)
[2023-02-18 16:16] LABS: Squamous Epithelial Cells - UA 0-5 SEEN /hpf (0-5)
== END | disposition home or self-care (01) ==
LOC: LABSPEC 10:41
PROVIDERS: PCP Family Medicine; Visit Provider Family Medicine
DX: R50.9 Fever, unspecified (principal)
CPT/HCPCS: 81001; 87077; 87086; 87088; 87186

== ENCOUNTER → 2023-05-30 | Outpatient (CLI) | payer MEDICARE, SELFPAY ==
[2023-05-30 15:23] LABS: Absolute Lymphocyte Count 1.55 X10^3/uL (0.83-4.51); Absolute Neutrophil Count 8.1 X10^3/uL (2.0-7.7); Basophil# 0.03 X10^3/uL; Basophil% 0.3 % (0-1); Hemoglobin 14.1 g/dL (13.0-16.5); Lymphocyte # 1.55 X10^3/ul (0.83-4.51); Lymphocyte % 14.9 % (19-41); Mean Corp Hgb Conc 32.8 g/dL (32-36); Mean Corpuscular Hgb 30.3 pg (27.0-32.0); Mean Corpuscular Volume 92.5 fL (80-94); Mean Platelet Vol. 9.8 fl (6.2-12.0); Monocyte# 0.56 X10^3/uL; Monocyte% 5.4 % (0-10); NRBC Flagged by Analyzer 0 % (0-5); Neutrophil # 8.13 X10^3/uL (2.7-7.7); Platelet Count 235 K/mm3 (150-450); RBC Distribution Width CV 13.1 % (11.6-14.6); Red Blood Count 4.65 M/mm3 (4.6-6.2); White Blood Count 10.4 K/mm3 (4.4-11.0)
[2023-05-30 15:39] LABS: Anion Gap 6 (5-15); BUN 16 mg/dL (7-18); BUN/Creat Ratio 13.2 RATIO (10-20); Calcium,Total 9.3 mg/dL (8.5-10.1); Chloride 107 mmol/L (98-107); Creatinine, Serum 1.21 mg/dL (0.70-1.30); EST Glomerular Filtration Rate 61 mL/min (>60); Est Glom Filt Rate - Afr Amer 74 mL/min (>60); Glucose 138 mg/dL (74-106); Potassium 3.9 mmol/L (3.5-5.1); Sodium Level 139 mmol/L (136-145)
== END | disposition home or self-care (01) ==
LOC: MFPLAB 12:20
PROVIDERS: PCP Family Medicine; Visit Provider Family Medicine
DX: D69.6 Thrombocytopenia, unspecified (principal)
CPT/HCPCS: 36415; 80048; 85025

== ENCOUNTER → 2023-06-27 | Outpatient (CLI) | payer MEDICARE, SELFPAY | END | disposition home or self-care (01) | LOC: LAB 13:04 → LABSPEC 13:07 | PROVIDERS: PCP Family Medicine; Referring Provider Urology; Visit Provider Urology | DX: R30.9 Painful micturition, unspecified (principal) | CPT/HCPCS: 87086 ==

== ENCOUNTER → 2023-09-27 | Outpatient (CLI) | payer MEDICARE, SELFPAY ==
--- NOTE | 2023-09-27 | CYSPIN_PTH ---
PATIENT: TATUM MARCUS LOC: [facility] U#:[id number] AGE/SX: 83/M ROOM: RE09/27/[address]: Dr. Lavon Garcia MD : 1940 BED: DIS: 09/27/2023 SPEC #: [id number] RECD: 09/28/23 08:36 STATUS: GILES RECalli #: [id number] ZAIDA: 09/27/23 00:[address]: Lavon Garcia DEPT: CYTOLOGY RECD BY: Alissa Tobias ENTERED: 09/28/23 08:36 SP TYPE: CYSPIN FL OTHR DR: Dr. Margarito Robison MD Tissues: Urine Procedures: Pap Stain (control) Special Stain Group II Cytospin Fluid HEADER OPERATION: Not noted PRE-OP DIAGNOSIS: Malignant neoplasm of lateral wall of bladder TISSUE SUBMITTED: Urine for cytology DIAGNOSIS CYTOLOGY Urine for cytology (cytospin): Atypical urothelial cells noted, (Sissy Category III). See comment. SJ/mr 09/28/23 COMMENT Clinical correlation and appropriate follow up are necessary. The Sissy System for urine cytology diagnostic categorization was used in the evaluation of this case. 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 Case has been reviewed in consultation with Dr. Davis who concurs with the above diagnosis. IDC:AM CYTOLOGY STUDY Slides are reviewed. CYTOLOGY GROSS Received is 60 ml of dark gold-yellow cloudy fluid labeled with the patient's name and and designated per the requisition as urine. Submitted for cytology preparation. mr 09/27/23 TC: 4 CPT: 59654
[2023-09-27 16:36] LABS: Cytology, Body Fluid / CSF SEE PATHOLOGY REPORT
== END | disposition home or self-care (01) ==
LOC: LABSPEC 16:13
PROVIDERS: PCP Family Medicine; Referring Provider Urology; Visit Provider Urology
DX: C67.2 Malignant neoplasm of lateral wall of bladder (principal)
CPT/HCPCS: 88108; 88313

== ENCOUNTER → 2023-10-10 | Outpatient (CLI) | payer MEDICARE, SELFPAY | END | disposition home or self-care (01) | LOC: LAB.FUTURE 16:24 → MTLAB 16:29 | PROVIDERS: PCP Family Medicine; Referring Provider Urology; Visit Provider Urology | DX: R30.0 Dysuria (principal) | CPT/HCPCS: 87086 ==

== ENCOUNTER → 2024-01-03 | Outpatient (CLI) | payer MEDICARE, SELFPAY ==
--- NOTE | 2024-01-03 | CYSPIN_PTH ---
PATIENT: TATUM MARCUS LOC: [facility] U#:[id number] AGE/SX: 83/M ROOM: RE01/03/[address]: Dr. Lavon Garcia MD : 1940 BED: DIS: 01/03/2024 SPEC #: [id number] RECD: 01/04/24 10:11 STATUS: GILES RECalli #: [id number] ZAIDA: 01/03/24 00:[address]: Lavon Garcia DEPT: CYTOLOGY RECD BY: Alissa Tobias ENTERED: 01/04/24 10:12 SP TYPE: CYSPIN FL OTHR DR: Dr. Margarito Robison MD Tissues: Urine Procedures: Pap Stain (control) Special Stain Group II Cytospin Fluid HEADER OPERATION: Not noted PRE-OP DIAGNOSIS: Malignant neoplasm of overlapping sites of bladder TISSUE SUBMITTED: Urine for cytology DIAGNOSIS CYTOLOGY Urine for cytology (cytospin): A few clusters of atypical urothelial cells noted (AUC), Sissy system category III. See comment. BEATRIS/ 01/04/2024 COMMENT Please make reference to previous specimen [id number] diagnosis of atypical urothelial cells noted and [id number], urinary bladder tumor, TUR, with diagnosis of papillary urothelial carcinoma. Clinical correlation and appropriate follow up are necessary. The Sissy System for urine cytology diagnostic categorization was used in the evaluation of this case. CYTOLOGY STUDY Slides are reviewed. CYTOLOGY GROSS Received is 60 ml of hazy-yellow fluid labeled with the patient's name and and designated per the requisition as urine. Submitted for cytology preparation. 01/04/2024 TC:5 CPT: 59468
[2024-01-03 17:11] LABS: Cytology, Body Fluid / CSF SEE PATHOLOGY REPORT
== END | disposition home or self-care (01) ==
LOC: LABSPEC 16:07
PROVIDERS: PCP Family Medicine; Referring Provider Urology; Visit Provider Urology
DX: C67.8 Malignant neoplasm of overlapping sites of bladder (principal)
CPT/HCPCS: 88108; 88313

== ENCOUNTER → 2024-03-05 | Outpatient (CLI) | payer MEDICARE, SELFPAY ==
[2024-03-05 11:11] LABS: Anion Gap 8 (5-15); BUN 21 mg/dL (7-18); BUN/Creat Ratio 16.4 RATIO (10-20); Calcium,Total 9.3 mg/dL (8.5-10.1); Chloride 108 mmol/L (98-107); Cholesterol 88 mg/dL (200); Creatinine, Serum 1.28 mg/dL (0.70-1.30); EST Glomerular Filtration Rate 57 mL/min (>60); Est Glom Filt Rate - Afr Amer 69 mL/min (>60); Glucose 151 mg/dL (74-106); High Density Lipoprotein 45 mg/dL; Potassium 4.1 mmol/L (3.5-5.1); Sodium Level 138 mmol/L (136-145); Triglycerides 94 mg/dL; Very Low Density Lipoprotein 19 mg/dL (5-40)
== END | disposition home or self-care (01) ==
LOC: MTLAB 07:40
PROVIDERS: PCP Family Medicine; Referring Provider Family Medicine; Visit Provider Family Medicine
DX: I10 Essential (primary) hypertension (principal)
CPT/HCPCS: 36415; 80048; 80061

== ENCOUNTER → 2024-04-05 | Outpatient (CLI) | payer MEDICARE, SELFPAY ==
[2024-04-05 16:06] LABS: Cytology, Body Fluid / CSF SEE PATHOLOGY REPORT
--- NOTE | 2024-04-06 | CYSPIN_PTH ---
PATIENT: TATUM MARCUS LOC: [facility] U#:[id number] AGE/SX: 83/M ROOM: RE04/05/[address]: Dr. Lavon Garcia MD : 1940 BED: DIS: 04/05/2024 SPEC #: [id number] RECD: 04/06/24 11:42 STATUS: GILES RECalli #: [id number] ZAIDA: 04/06/24 00:[address]: Lavon Garcia DEPT: CYTOLOGY RECD BY: Jatinder Peacock ENTERED: 04/06/24 11:42 SP TYPE: CYSPIN FL OTHR DR: Dr. Margarito Robison MD Tissues: Urine Procedures: Pap Stain (control) Special Stain Group II Cytospin Fluid HEADER OPERATION: Not noted PRE-OP DIAGNOSIS: Malignant neoplasm of overlapping sites of bladder TISSUE SUBMITTED: Urine for cytology DIAGNOSIS CYTOLOGY Urine for cytology (cytospin): Negative for high grade urothelial carcinoma, Sissy Category System II. See comment. AM. 04/06/2024 COMMENT The Sissy System for urine cytology diagnostic categorization was used in the evaluation of this case. Spermatozoa are present in the specimen. CYTOLOGY STUDY Slides are reviewed. CYTOLOGY GROSS Received is 40 ml of gold- cloudy fluid labeled with the patient's name and and designated per the requisition as urine. Submitted for cytology preparation. Mr 04/06/2024 TC:5 CPT: 16377
== END | disposition home or self-care (01) ==
LOC: LABSPEC 15:59
PROVIDERS: PCP Family Medicine; Referring Provider Urology; Visit Provider Urology
DX: Z71.1 Person with feared health complaint in whom no diagnosis is made (principal)
CPT/HCPCS: 88108; 88313

== ENCOUNTER → 2024-09-04 | Outpatient (CLI) | payer MEDICARE, SELFPAY ==
[2024-09-04 19:20] LABS: Vitamin B12 449 pg/mL (180-914)
[2024-09-05 12:09] LABS: ALB/GLOB Ratio 1.4 RATIO (0.9-2.4); AST(SGOT) 27 U/L (<=37); Alanine Aminotransfer ALT/SGPT 24 U/L (<=46); Albumin, Serum 4.2 g/dL (3.4-4.8); Alkaline Phosphatase 115 U/L (40-129); Anion Gap 14 (5-15); BUN 15 mg/dL (4-19); BUN/Creat Ratio 13.4 RATIO (10-20); Calcium 9.8 mg/dL (7.6-11.0); Carbon Dioxide 21.8 mmol/L (22.0-29.0); Chloride 104 mmol/L (96-108); Cholesterol 104 mg/dL (<=200); Creatinine, Serum 1.1 mg/dL (0.8-1.3); EST Glomerular Filtration Rate 63 (>60); Glucose 131 mg/dL (70-99); High Density Lipoprotein 46 mg/dL; Potassium 4.4 mmol/L (3.3-5.1); Protein, Total 7.2 g/dL (5.9-8.4); Sodium Level 139 mmol/L (133-145); Thyroid Stim Hormone (TSH) 0.841 uIU/mL (0.300-4.200); Total Bilirubin 0.97 mg/dL (0.00-1.30); Triglycerides 62 mg/dL; Uric Acid 5.9 mg/dL (3.5-7.2); Very Low Density Lipoprotein 12 mg/dL (5-40)
== END | disposition home or self-care (01) ==
LOC: MFPLAB 09:36
PROVIDERS: PCP Family Medicine; Referring Provider Family Medicine; Visit Provider Family Medicine
DX: E11.65 Type 2 diabetes mellitus with hyperglycemia (principal); I25.10 Atherosclerotic heart disease of native coronary artery without angina pectoris; M10.9 Gout, unspecified
CPT/HCPCS: 36415; 80053; 80061; 82607; 84443; 84550

== ENCOUNTER → 2025-03-01 | Outpatient (CLI) | payer MEDICARE, SELFPAY ==
--- OUTSIDE RECORDS SUMMARY | 2025-03-01 08:37 | XMS RPT_ITS | CCD ---
Author Organization [facility] CliniSyct Care Team Providers Care Cartographic Drafter Name Role Phone DeFinis, Harumi Y Unavailable Unavailable DeFinis, Harumi Y Unavailable Unavailable Rudy Powers Unavailable Unavailable Haja Mccain MD Unavailable [phone] Care Physician, No Primary Referring Provider Un available Dr. Haja Mccain Attending Provider Dr. Angus Argueta Primary Care Provider Dr. Haja Mccain Other Provider [phone] Angus Argueta Primary Care Provider Dr. Haja Mccain Attending Provider Dr. Haja Mccain Referring Provider Dr. Haja Mccain Other Provider [phone] Mendel Robison Primary Care Provider [phone] Dr. Marleny Hu Attending Provider [phone] Dr. Lavon Garcia Referring Provider [phone] Dr. Angus Argueta Referring Provider Roof FRONT OFFICE MANAGER, FRONT OFFICE MANAGER-C Edgard Navarro Attending Provider [phone] Mendel Robison Primary Care Provider Dr. Margarito Robison Primary Care Provider Margarito Robison Primary Care Unavailable Lavon Garcia Referring Unavailable Lavon Garcia Attending Unavailable Margarito Robison Primary Care Unavailable Margarito Robison Attending Unavailable Margarito Robison Referring Unavailable Lavon Garcia Attending Unavailable Jose, Lavon Nieves Referring Unavailable Margarito Robison Primary Care Unavailable Jose, Lavon Nieves Attending Unavailable Jose, Lavon Nieves Referring Unavailable Margarito Robison Primary Care Unavailable Margarito Robison Referring Unavailable Margarito Robison Primary Care Unavailable Augustin Begum Attending Unavailable Lavon Garcia Attending Unavailable Margarito Robison Primary Care Unavailable Jose, Lavon Nieves Referring Unavailable Margarito Robison Referring Unavailable Margarito Robison Primary Care Unavailable Margarito Robison Attending Unavailable Enriqueta ART, Dr. Pimentel Primary Care Provider Enriqueta ART, Dr. Pimentel Referring Provider Shy ART, Dr. Ruffin Attending Provider Enriqueta ART, Dr. Pimentel Attending Provider Medications Current Medications Medication Drug Class(es) Dates Sig (Normalized) Sig (Original) ascorbic acid 1000 mg oral tablet (20 sources) Start: 05-11-2021 take 1 g by mouth every week Ascorbic Acid (Vitamin C) 1,000 mg tablet Active 1 g PO EVERY WEEK May 11, 2021 1:06pm Start: 05-11-2021 take 1 g by mouth every week A scorbic Acid (Vitamin C) Active 1 GM PO EVERY WEEK May 11, 2021 12:06pm Start: 05-11-2021 take 1 g by mouth every week A scorbic Acid (Vitamin C) Active 1 GM PO EVERY WEEK May 11, 2021 1:06pm Start: 05-11-2021 take 1 g by mouth once daily A scorbic Acid (Vitamin C) Active 1 GM PO daily May 11, 2021 12:06pm Start: 05-11-2021 take 1 g by mouth once daily A scorbic Acid (Vitamin C) Active 1 GM PO daily May 11, 2021 1:06pm Start: 02-16-2018 End: 05-11-2021 take 1 g by mouth once daily Ascorbic Acid (Vitamin C) 1,000 mg tablet Discontinued 1 g PO daily February 16, 2018 12:00am May 11, 2021 1:07pm Start: 02-16-2018 End: 05-11-2021 take 1 g by mouth once daily Ascorbic Acid (Vitamin C) Discontinued 1 GM PO daily February 16, 2018 12:00am May 11, 2021 1:07pm Start: 01-21-2014 take 1 tablet by sae th once daily VITAMIN C 1000 MG TABS One tablet by mouth daily ASCORBIC ACID [id number] Jodi Ross RN aspirin 81 mg chewable tablet (20 sources) Nonsteroidal Anti-inflammatory Drug Start: 10-08-2013 take 1 tablet by mouth once daily Aspirin 81 MG tablet,chewable Active 81 mg PO DAILY@0800 October 08, 2013 12:00am Start: 08-09-2013 take 1 tablet by sae th once daily ASPIRIN 81 MG TABS One tablet by mouth daily ASPIRIN [id number] Tanya Lincoln RN Start: 08-09-2013 take 1 tablet by sae th once daily ASPIRIN EC 81 MG TBEC One tablet by mouth daily ASPIRIN [id number] Haja Mccain MD atorvastatin 40 mg oral tablet (20 sources) HMG-CoA Reductase Inhibitor Start: 12-17-2022 take 2 tablets by mouth at bedtime Atorvastatin 40 mg tablet Active 80 mg PO AT BEDTIME December 17, 2022 2:00pm Start: 12-17-2022 take 80 mg by mouth at bedtime Atorvastatin Active 80 MG PO AT BEDTIME December 17, 2022 2:00pm Start: 02-16-2018 End: 12-17-2022 take 1 tablet by mouth once daily Atorvastatin 40 mg tablet Discontinued 40 mg PO daily March 06, 2018 5:05pm December 17, 2022 1:53pm Start: 10-11-2013 take 1 tablet by sae th once daily ATORVASTATIN CALCIUM 80 MG TABS One tablet by mouth daily ATORVASTATIN CALCIUM [id number] Jodi Ross RN Start: 10-11-2013 take 1 tablet by sae th once daily ATORVASTATIN CALCIUM 40 MG TABS One tablet by mouth daily ATORVASTATIN CALCIUM [id number] Kymberly Wood PA-C CBD gummy (1 source) Start: 08-30-2024 CBD gummy Acti ve PO DAILY August 30, 2024 1:00am cholecalciferol 0.05 mg oral tablet (7 sources) Vitamin D Start: 12-17-2022 take 1 tablet by mouth once daily Cholecalciferol (Vitamin D3) (Vitamin D3) 50 mcg (2,000 unit) Tablet Active 50 ug PO DAILY December 17, 2022 12:00am ubidecarenone 100 mg oral capsule (19 sources) Start: 02-16-2018 Coenzyme Q10 ( Co Q-10) 100 mg capsule Active 100 mg PO daily February 16, 2018 12:00am Start: 09-10-2015 take 1 tablet by sae once daily CO Q-10 100 MG CAPS One tablet by mouth daily COENZYME Q10 [id number] Haja Mccain MD Curcumin-Phosphatidylcholine (6 sources) Start: 12-17-2022 take 500 mg by mouth once daily Curcumin-Phosphatidylcholine Active 500 MG PO DAILY December 16, 2022 11:00pm Start: 12-17-2022 take 500 mg by mouth once daily Curcumin-Phosphatidylcholine Active 500 MG PO DAILY December 17, 2022 12:00am Curcumin-Phosphatidylcholine 500 mg Capsule (1 source) Start: 12-17-2022 take 1 capsule by mouth once daily Curcumin-Phosphatidylcholine 500 mg Capsule Active 500 mg PO DAILY December 17, 2022 12:00am hydroCHLOROthiazide 12.5 mg / lisinopril 20 mg oral tablet (19 sources) Thiazide Diuretic , Angioten sin Converti ng Enzyme Inhibito r Start: 10-08-2013 take 1 tablet by mouth once daily Lisinopril-Hydrochlorothiazid e Active 1 TABLET PO DAILY October 08, 2013 12:00am Start: 08-09-2013 Lisinopril-Hyd rochlorothiazide 1 TABLET tablet Active 1 {tbl} PO DAILY October 08, 2013 12:00am metFORMIN hydrochloride 500 mg oral tablet (20 sources) Biguanide Start: 08-15-2023 take 2 capsules by mouth twice daily in the morning Metformin 500 mg tablet Active 500 mg PO TWICE A DAY August 15, 2023 2:15pm 2 caps in the AM; one in PM Start: 05-07-2019 End: 08-15-2023 take 1 tablet by mouth twice daily Metformin 500 mg tablet Discontinued 500 mg PO TWICE A DAY May 07, 2019 9:39am August 15, 2023 2:17pm Start: 08-09-2013 End: 05-07-2019 take 1 tablet by mouth once daily Metformin 500 MG tablet Discontinued 500 mg PO DAILY October 08, 2013 12:00am May 07, 2019 9:41am metoprolol tartrate 25 mg oral tablet (20 sources) beta-Adrenergic [place] Start: 05-07-2019 Metopr olol Tartrate 25 mg tablet Active 12.5 mg PO TWICE A DAY May 07, 2019 9:40am Start: 05-07-2019 take 12.5 mg by mout h twice daily Metoprolol Tartrate Active 12.5 MG PO TWICE A DAY May 07, 2019 9:40am Start: 10-11-2013 take 1 tablet by sae th twice daily METOPROLOL TARTRATE 50 MG TABS One half tablet by mouth twice daily METOPROLOL TARTRATE [id number] Haja Mccain MD Start: 08-24-2013 End: 05-07-2019 take 1 tablet by mouth twice daily Metoprolol Tartrate 25 MG tablet Discontinued 25 mg PO TWICE A DAY October 08, 2013 12:00am May 07, 2019 9:41am Hickman-3 Fatty Acids-Fish Oil (14 sources) Start: 10-08-2013 Hickman-3 Fatty Acids-Fish Oil Active 1 EACH PO TWICE A DAY October 07, 2013 11:00pm Start: 10-08-2013 Hickman-3 Fatty Acids-Fish Oil Active 1 EACH PO TWICE A DAY October 08, 2013 12:00am Hickman-3 Fatty Acids-Fish Oil 1 EACH capsule (1 source) Start: 10-08-2013 [place]ickman-3 Fatty Acids-Fish Oil 1 EACH capsule Active 1 NMA PO TWICE A DAY October 08, 2013 12:00am red yeast rice 600 mg oral tablet (20 sources) Start: 02-16-2018 End: 08-15-2023 take 1 tablet by mouth once Red Yeast Rice 600 mg tablet Active 600 mg PO MO August 15, 2023 2:16pm Start: 01-21-2014 take 1 tablet by sae th once daily RED YEAST RICE 600 MG TABS One tablet by mouth daily RED YEAST RICE EXTRACT [id number] Jodi Ross RN [place] (20 sources) Start: 08-30-2024 take 1 capsule by mo [facility] twice daily [place] 160 mg capsule Active 160 mg PO TWICE A DAY August 30, 2024 1:00am give with meal/snack Start: 10-08-2013 End: 05-28-2022 take 1 capsule by mouth once daily [place] 500 MG capsule Discontinued 500 mg PO DAILY October 08, 2013 12:00am May 28, 2022 2:35pm Start: 10-08-2013 End: 05-28-2022 take 500 mg by mouth once daily [place] Discontin ued 500 MG PO DAILY October 08, 2013 12:00am May 28, 2022 2:35pm Start: 10-08-2013 End: 05-28-2022 take 500 mg by mouth once daily [place] Discontin ued 500 MG PO DAILY October 07, 2013 11:00pm May 28, 2022 1:35pm Start: 10-08-2013 take 500 mg by mouth once jarett y [place] Active 500 MG PO DAILY October 08, 2013 12:00am Start: 08-09-2013 SAW PALMETTO 1 000 MG CAPS 500mg daily SAW PALMETTO (SERENOA REPENS) [id number] Tanya Lincoln RN Start: 08-09-2013 take 1 tablet by sae th twice daily SAW PALMETTO 160 MG CAPS One tablet by mouth twice daily SAW PALMETTO (SERENOA REPENS) [id number] Jodi Ross RN Vitamin B Complex (6 sources) Start: 12-17-2022 take 1 tablet by sae th once daily Vitamin B Complex Active 1 TABLET PO DAILY December 16, 2022 11:00pm Start: 12-17-2022 take 1 tablet by mouth once da tino Vitamin B Complex Active 1 TABLET PO DAILY December 17, 2022 12:00am Vitamin B Complex Tablet (1 source) Start: 12-17-2022 Vitamin B Comp samanta Tablet Active 1 {tbl} PO DAILY December 17, 2022 12:00am Zinc (7 sources) Start: 12-17-2022 take 1 tablet by mouth once daily Zinc 50 mg Tablet Active 50 mg PO DAILY December 17, 2022 12:00am Start: 12-17-2022 take 50 mg by mouth once daily Zinc Active 50 MG PO DAILY December 16, 2022 11:00pm Start: 12-17-2022 take 50 mg by mouth once daily Zinc Active 50 MG PO DAILY December 17, 2022 12:00am Completed/Discontinued Medications Medication Drug Class(es) Dates Sig (Normalized) Sig (Original) acetaminophen 325 mg / oxyCODONE hydrochloride 5 mg oral tablet (7 sources) Opioid Agonist Start: 12-24-2022 End: 08-30-2024 Oxycodone-Acetamino phen (Endocet) 5-325 mg tablet Discontinued 1 {tbl} PO EVERY 6 HOURS as needed for pain 21 01December 24, 2022 August 30, 2024 3:53pm calcium carbonate / vitamin D (8 sources) Start: 01-21-2014 End: 08-05-2014 take 1 tablet by mouth once daily CALCIUM + D 600-200 MG-UNIT TABS One tablet by mouth daily CALCIUM CARBONATE-VITAMIN D Haja Mccain MD Start: 01-21-2014 take 1 tablet by sae th once daily CALCIUM + D 600-200 MG-UNIT TABS One tablet by mouth daily CALCIUM CARBONATE-VITAMIN D Jodi Ross RN GLUCOSAMINE-CHONDROITIN CAPS (8 sources) Start: 08-09-2013 End: 01-21-2014 GLUCOSAMINE-CHONDROITIN CAPS twice daily GLUCOSAMINE-CHONDROITIN CAPS [id number] Jodi Ross RN Start: 08-09-2013 GLUCOSAMINE-CH ONDROITIN CAPS twice daily GLUCOSAMINE-CHONDROITIN CAPS [id number] Tanya Lincoln RN chondroitin sulfates 400 mg / glucosamine hydrochloride 500 mg / methylsulfonylmethane 83 mg oral tablet (15 sources) Start: 10-08-2013 End: 02-16-2018 take 1 tablet by mouth twice daily Glucosamine [id number]-Zkv-Lvqstvuucq 1 EACH tablet Discontinued 1 NMA PO TWICE A DAY October 08, 2013 12:00am February 16, 2018 9:47am Start: 10-08-2013 End: 02-16-2018 Glucosamine Kdu-Iti-Rgxvwmyj tn Discontinued 1 EACH PO TWICE A DAY October 08, 2013 12:00am February 16, 2018 9:47am ciprofloxacin 500 mg oral tablet (7 sources) Quinolone Antimicrobial Start: 12-24-2022 End: 08-15-2023 take 1 tablet by mouth twice daily Ciprofloxacin Hcl (Cipro) 500 mg tablet Discontinued 500 mg PO TWICE A DAY December 24, 2022 12:00am August 15, 2023 2:15pm clopidogrel 75 mg oral tablet (20 sources) [id number] Platelet Inhibitor Start: 05-30-2019 End: 05-30-2019 take 1 tablet by mouth once daily Clopidogrel 75 mg tablet Discontinued 75 mg PO DAILY May 30, 2019 1:00am May 30, 2019 12:51pm Start: 10-17-2017 End: 10-12-2018 take 1 tablet by mouth once daily Clopidogrel 75 mg tablet Discontinued 75 mg PO daily 90 90 October 17, 2017 12:00am October 11, 2018 12:00am October 12, 2018 12:07am Start: 10-11-2013 take 1 tablet by sae th once daily PLAVIX 75 MG TABS One tablet by mouth daily CLOPIDOGREL BISULFATE [id number] Haja Mccain MD fish oil (4 sources) Start: 08-09-2013 take 1 tablet by sae th twice daily FISH OIL CAPS 1000mg One tablet by mouth twice daily OMEGA-3 FATTY ACIDS CAPS [id number] Tanya Lincoln RN [place] (6 sources) Start: 12-17-2022 End: 08-15-2023 take 320 mg by mouth once daily at mealtime [place] Discontinued 320 MG PO DAILY December 17, 2022 12:00am August 15, 2023 2:16pm give with food (meal/snack) Start: 12-17-2022 take 320 mg by mouth once daily at mealtime [place] Active 320 MG PO DAILY December 16, 2022 11:00pm give with food (meal/snack) Start: 12-17-2022 take 320 mg by mouth once daily at mealtime [place] Active 320 MG PO DAILY December 17, 2022 12:00am give with food (meal/snack) [place] 320 mg Capsule (1 source) Start: 12-17-2022 End: 08-15-2023 take 1 capsule by mouth once daily at mealtime [place] 320 mg Capsule Discontinued 320 mg PO DAILY December 17, 2022 12:00am August 15, 2023 2:16pm give with food (meal/snack) tamsulosin hydrochloride 0.4 mg oral capsule (13 sources) alpha-Adrenergi c [place] Start: 12-17-2022 End: 08-15-2023 take 1 capsule by mouth once daily Tamsulosin (Flomax) 0.4 mg capsule Discontinued 0.4 mg PO DAILY 90 January 05, 2023 12:00am August 15, 2023 2:17pm testosterone 0.01 mg/mg topical gel (19 sources) Androgen Start: 10-08-2013 End: 05-07-2019 Testosterone 2.5 GM gel in packet Discontinued 2.5 g TD DAILY October 08, 2013 12:00am May 07, 2019 9:40am Start: 08-09-2013 ANDROGEL GEL 2 0.25 mg transderm TESTOSTERONE GEL [id number] Tanya Lincoln RN Problems Active Problems Problem Classification Problem Date Documented Da te Episodic/Chronic Cancer of bladder (2 sources) Malignant neoplasm of overlapping sites of bladder; Translations: [Malignant neoplasm of lateral wall of bladder] Onset: 10-03-2023 Chronic Cardiac dysrhythmias (20 sources) Bradycardia; Translations: [Premature atrial contraction] Onset: 08-09-2013 08-09-2013 Chronic Cardiac dysrhythmias (20 sources) Sinus bradycardia; Translations: [Bradycardia, unspecified] Episodic Coronary atherosclerosis and other heart disease (20 sources) Coronary atherosclerosis; Translations: [Atherosclerotic heart disease of [place] coronary artery without angina pectoris] Chronic Comment on above: PTCA/CASSI of the prox LAD and mid RCA 10/09/13 @ [facility] Diabetes mellitus with complications (1 source) Type 2 diabetes mellitus with hyperglycemia; Translations: [Type 2 diabetes mellitus with hyperglycemia] Onset: 09-19-2024 Chronic Diabetes mellitus without complication (20 sources) Diabetes mellitus; Translations: [Type 2 diabetes mellitus] Onset: 08-09-2013 08-09-2013 Chronic Disorders of lipid metabolism (20 sources) Hyperlipidemia; Translations: [Pure hypercholesterolemi a] Onset: 08-19-2014 08-19-2014 Chronic Essential hypertension (3 sources) Essential (primary) hypertension; Translations: [Hypertensive disorder] Onset: 03-14-2024 08-30-2024 Chronic Other diseases of bladder and urethra (7 sources) Mass of urinary bladder; Translations: [Other specified disorders of bladder] 12-24-2022 Chronic Other lower respiratory disease (14 sources) Dyspnea; Translations: [Dyspnea, unspecified] 05-28-2022 Episodic Other lower respiratory disease (3 sources) Dyspnea, unspecified; Translations: [Other respiratory abnormalities] Episodic Other nutritional; endocrine; and metabolic disorders (16 sources) Body mass index (BMI) 30.0-30.9, adult; Translations: [Body mass index (BMI) 31.0-31.9, adult] Onset: 08-16-2013 03-31-2016 Chronic [place]-; endo-; and myocarditis; cardiomyopathy (4 sources) Cardiomyopathy; Translations: [Cardiomyopathy, unspecified] Onset: 09-27-2013 09-27-2013 Chronic Unclassified (4 sources) Percutaneous transluminal coronary angioplasty ; Translations: [Coronary angioplasty status] Onset: 10-10-2013 10-10-2013 Past or Other Problems Problem Classification Problem Date Documented Date Episodic/Chronic Conditions associated with dizziness or vertigo (4 sources) Dizziness; Translations: [Dizziness and giddiness] Onset: 08-16-2013 Episodic Coronary atherosclerosis and other heart disease (20 sources) Coronary angioplasty status; Translations: [Stented coronary artery] Onset: 10-15-2013 Episodic Comment on above: PTCA/CASSI of the prox LAD and mid RCA 10/09/13 @ [facility] Genitourinary symptoms and ill-defined conditions (1 source) Dysuria; Translations: [Dysuria] Onset: 4 Episodic Other aftercare (8 sources) Long-term (current) use of other medications; Translations: [Other moth exterminator (current) drug therapy] Onset: 5 08-19-2014 Episodic Other circulatory disease (8 sources) Electrocardiogram abnormal; Translations: [Cardiovascular stress test abnormal] Onset: 4 08-16-2013 Episodic Unclassified (8 sources) Family history of ischemic heart disease and other diseases of the circulatory system; Translations: [Echocardiogram abnormal] Onset: 4 01-21-2014 Episodic Results Test Name Value Interpretation Reference Range Facility Comprehensive Metabolic Prof nini 09-05-2024 Albumin [Mass/Vol] 4.2 g/dL Normal 3.4-4.[address] [facility] Comment on above: Performed By: #### L 501.1400, L500.4100, L500.4050, L501.9520 #### [facility] [address] [place], [address] Albumin/Globulin [Mass ratio] 1.4 {ratio} Normal 0.9-2.4 [facility] Comment on above: Performed By: #### L 501.1400, L500.4100, L500.4050, L501.9520 #### [facility] [address] [place], [address] ALK PHOS 115 U/L Normal 40-129 [facility] Comment on above: Performed By: #### L 501.1400, L500.4100, L500.4050, [id number] #### [facility] [address] [place], [address] ALT [Catalytic activity/Vol] 24 U/L Normal <=46 [facility] Comment on above: Performed By: #### L 501.1400, L500.4100, L500.4050, L501.9520 #### [facility] [address] [place], [address] Anion gap [Moles/Vol] 14 mmol/L Normal 5-15 [facility] Comment on above: Performed By: #### L 501.1400, L500.4100, L500.4050, L501.9520 #### [facility] [address] [place], [address] AST [Catalytic activity/Vol] 27 U/L Normal <=37 [facility] Comment on above: Performed By: #### L 501.1400, L500.4100, L500.4050, L501.9520 #### [facility] [address] [place], [address] Bilirubin [Mass/Vol] 0.97 mg/dL Normal 0.00-1.30 [facility] Comment on above: Performed By: #### L 501.1400, L500.4100, L500.4050, L501.9520 #### [facility] [address] [place], [address] BUN/CRE 13.4 RATIO Normal 10-20 [facility] Comment on above: Performed By: #### L 501.1400, L500.4100, L500.4050, L501.9520 #### [facility] [address] [place], [address] Calcium [Mass/Vol] 9.8 mg/dL Normal 7.6-11.[address] [facility] Comment on above: Performed By: #### L 501.1400, L500.4100, L500.4050, L501.9520 #### [facility] [address] [place], [address] Chloride [Moles/Vol] 104 mmol/L Normal 96-108 [facility] Comment on above: Performed By: #### L 501.1400, L500.4100, L500.4050, L501.9520 #### [facility] [address] [place], [address] CO2 [Moles/Vol] 21.8 mmol/L Low 22.0-29.0 [facility] Comment on above: Performed By: #### L 501.1400, L500.4100, L500.4050, L501.9520 #### [facility] [address] [place], [address] Creatinine [Mass/Vol] 1.1 mg/dL Normal 0.8-1.3 [facility] Comment on above: Performed By: #### L 501.1400, L500.4100, L500.4050, L501.9520 #### [facility] [address] [place], [address] GFR/1.73 sq M.predicted among non-blacks MDRD (S/P/Bld) [Vol rate/Area] 63 mL/min/{1.73_m2} Normal >60 [facility] Comment on above: Result Comment: mL/m in/1.73m2 CKD-EPI Creatinine Equation (2020) Performed By: #### L 501.1400, L500.4100, L500.4050, L501.9520 #### [facility] [address] [place], [address] Globulin (S) [Mass/Vol] 3.0 g/dL Normal 2.2-4.2 [facility] Comment on above: Performed By: #### L 501.1400, L500.4100, L500.4050, L501.9520 #### [facility] [address] [place], [address] Glucose [Mass/Vol] 131 mg/dL High 70-[address] [facility] Comment on above: Performed By: #### L 501.1400, L500.4100, L500.4050, L501.9520 #### [facility] [address] [place], [address] Potassium [Moles/Vol] 4.4 mmol/L Normal 3.3-5.1 [facility] Comment on above: Performed By: #### L 501.1400, L500.4100, L500.4050, L501.9520 #### [facility] [address] [place], [address] Sodium [Moles/Vol] 139 mmol/L Normal 133-[address] [facility] Comment on above: Performed By: #### L 501.1400, L500.4100, L500.4050, L501.9520 #### [facility] [address] [place], [address] T PROT 7.2 g/dL Normal 5.9-8.4 [facility] Comment on above: Performed By: #### L 501.1400, L500.4100, L500.4050, L501.9520 #### [facility] [address] [place], [address] Urea nitrogen [Mass/Vol] 15 mg/dL Normal 4-19 [facility] Comment on above: Performed By: #### L 501.1400, L500.4100, L500.4050, L501.9520 #### [facility] [address] [place], [address] Lipid Profileon 09-05-2024 Cholesterol in LDL [Mass/Vol] 46 mg/dL Normal 0-130 [facility] Comment on above: Performed By: #### L 501.1400, L500.4100, L500.4050, L501.9520 #### [facility] [address] [place], [address] Thyroid Stim Hormone (TSH)on 09-05-2024 TSH 0.841 uIU/mL Normal 0.300-4.200 [facility] Comment on above: Performed By: #### L 501.1400, L500.4100, L500.4050, L501.9520 #### [facility] [address] [place], [address] Uric Acidon 09-05-2024 URIC 5.9 mg/dL Normal 3.5-7.2 [facility] Comment on above: Result Comment: The drugs N-Acetylcysteine and Metamizole may falsely depress this assay. Performed By: #### L 501.1400, L500.4100, L500.4050, L501.9520 #### [facility] [address] [place], [address] BUN/creatinine ratioOrdered By: Margarito Robison on 09-04-2024 Urea nitrogen/Creatinine [Mass ratio] 13.4 mg/mg 10-20 [facility] Bilirubin, totalOrdered By: Margarito Robison on 09-04-2024 Bilirubin [Mass/Vol] 0.97 mg/dL 0.00-1.30 [facility] Carbon dioxide measurementOr dered By: Margarito Robison on 09-04-2024 CO2 [Moles/Vol] 21.8 mmol/L Low 22.0-29.0 [facility] Chloride measurementOrdered By: Margarito Robison on 09-04-2024 Chloride [Moles/Vol] 104 mmol/L 96-108 [facility] Cholesterol in VLDL [Mass/Vo l]Ordered By: Margarito Robison on 09-04-2024 VLDL Cholesterol 12 mg/dL 5-40 [facility] Creatinine [Moles/Vol]Ordere d By: Margarito Robison on 09-04-2024 Creatinine [Mass/Vol] 1.1 mg/dL 0.8-1.3 [facility] GFR/1.73 sq M.predicted kathia g non-blacks MDRD (S/P/Bld) [Vol rate/Area]Ordered By: Margarito Robison on 09-04-2024 Estimated GFR (MDRD) Non-Af Amer 63 >60 [facility] Comment on above: mL/min/1.73m2 CKD-EP I Creatinine Equation (2020) L503.0106on 09-04-2024 Cobalamin (Vitamin B12) [Mass/Vol] 449 pg/mL Normal 180-914 [facility] Comment on above: Order Comment: Order Date: 03/06/24Order Info: [id number] - CMPOrder Info: [id number] - LIPIDOrder Info: [id number] - URICOrder Info: [id number] - TSH Performed By: #### P PAPS #### [facility] [address] [place] [address], [id number] Laboratory - Chemistry and C hemistry - challengeOrdered By: Margarito Robison on 09-04-2024 AST [Catalytic activity/Vol] 27 U/L <38 [facility] Cobalamin (Vitamin B12) [Mass/Vol] 449 pg/mL 180-914 [facility] Low density lipoprotein (LDL ) cholesterol measurementOrdered By: Margarito Robison on 09-04-2024 Cholesterol in LDL [Mass/Vol] 46 mg/dL 0-130 [facility] Serum globulin measurementOr dered By: Margarito Robison on 09-04-2024 Globulin (S) [Mass/Vol] 3.0 g/dL 2.2-4.2 [facility] Serum glucose measurement (m ass/volume)Ordered By: Margarito Robison on 09-04-2024 Glucose [Mass/Vol] 131 mg/dL High 70-[address] [facility] Serum or plasma alanine waldrop otransferase (ALT) measurementOrdered By: Margarito Robison on 09-04-2024 ALT [Catalytic activity/Vol] 24 U/L <47 [facility] Serum or plasma albumin steve urement (mass/volume)Ordered By: Margarito Robison on 09-04-2024 Albumin [Mass/Vol] 4.2 g/dL 3.4-4.[address] [facility] Serum or plasma albumin/glob ulin mass ratioOrdered By: Margarito Robison on 09-04-2024 Albumin/Globulin [Mass ratio] 1.4 {ratio} 0.9-2.4 [facility] Serum or plasma alkaline sophie sphatase measurementOrdered By: Margarito Robison on 09-04-2024 ALP [Catalytic activity/Vol] 115 U/L 40-129 [facility] Serum or plasma anion gap de termination (moles/volume)Ordered By: Margarito Robison on 09-04-2024 Anion gap [Moles/Vol] 14 mmol/L 5-15 [facility] Serum or plasma calcium steve urement (mass/volume)Ordered By: Margarito Robison on 09-04-2024 Calcium [Mass/Vol] 9.8 mg/dL 7.6-11.[address] [facility] Serum or plasma cholesterol in HDL measurement (mass/volume)Ordered By: Margarito Robison on 09-04-2024 Cholesterol in HDL [Mass/Vol] 46 mg/dL >40 [facility] Comment on above: The drugs N-Acetylcy steine and Metamizole may falsely depress this assay. National Cholesterol Education Program (NCEP) guidelines:<40 mg/dL: Low HDL-cholesterol (major risk factor for CHD)>= 60 mg/dL: High HDL-cholesterol (negative risk factor for CHD)HDL-cholesterol is affected by a number of factors, e.g. smoking, exercise, hormones, sex and age. Serum or plasma cholesterol measurement (mass/volume)Ordered By: Margarito Robison on 09-04-2024 Cholesterol [Mass/Vol] 104 mg/dL <201 [facility] Comment on above: Cholesterol level, D esirable <200 mg/dLBorderline high cholesterol 200-239 mg/dLHigh cholesterol >=240 mg/dLRecommendations of the NCEP Adult Treatment Panel for the following risk-cutoff thresholds for the [place] population. Serum or plasma potassium me asurementOrdered By: Margarito Robison on 09-04-2024 Potassium [Moles/Vol] 4.4 mmol/L 3.3-5.1 [facility] Serum or plasma sodium measu rement (moles/volume)Ordered By: Margarito Robison on 09-04-2024 Sodium [Moles/Vol] 139 mmol/L 133-[address] [facility] Serum or plasma urea nitroge n measurement (mass/volume)Ordered By: Margarito Robison on 09-04-2024 Urea nitrogen [Mass/Vol] 15 mg/dL 4-19 [facility] Serum or plasma uric acid me asurement (mass/volume)Ordered By: Margarito Robison on 09-04-2024 Urate [Mass/Vol] 5.9 mg/dL 3.5-7.2 [facility] Comment on above: The drugs N-Acetylcy steine and Metamizole may falsely depress this assay. TSH DL <= 0.005 mIU/L QnOrde red By: Margarito Robison on 09-04-2024 Thyroid Stimulating Hormone (TSH) 0.841 uIU/mL 0.300-4.200 [facility] Total proteinOrdered By: Izzy Robison on 09-04-2024 Protein [Mass/Vol] 7.2 g/dL 5.9-8.[address] [facility] Triglycerides measurementOrd ered By: Margarito Robison on 09-04-2024 Triglyceride [Mass/Vol] 62 mg/dL <199 [facility] Comment on above: The drugs N-Acetylcy steine and Metamizole may falsely depress this assay. Normal range: <150 mg/dLBorderline High: 150-199 mg/dLHigh: 200-499 mg/dLVery High: >500 mg/dL Cardiology Visit Reporton Cardiology Visit Report [facility] [address] [place], [place] [address] OFFICE VISIT Date of Service: 08/30/24 MR#: [id number] Acct: [id number] Name: TATUM MARCUS Rep #: [id number] : 1940 Provider: Dr. Augustin gooden MD Age/Sex: 84/M Location: [facility] Status: Signed HPI HPI History of Present Illness Details: Patient is a pleasant 84-year-old White Jessica well that comes in today for monitoring of his coronary disease having just taken a CBD gummy. He was very talkative. Patient has a history of coronary disease status post LAD and right coronary stenting in 2013. He also had a history of an ischemic cardiomyopathy but repeat echocardiogram in May 2019 5 years later showed an EF of 65%. He has a history of hyperlipidemia that is well-controlled and hypertension that is well-controlled. His diabetes reports to me that his hemoglobin A1c last was around 7.9. Patient reports that he is fairly active in his home environment he denies any anginal type symptoms denies any PND orthopnea or lower extremity edema denies any syncope or near syncope. 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 He also worked with [employer] companies in [facility]. Intake Vital Signs 08/15/23 13:11 08/30/24 14:50 Height 6 ft 1 in 6 ft 1 in Weight: 232 lb BMI 30.6 BP 115/56 L Blood Pressure Location Lt brachial Position Sitting Respiration 18 Pulse 69 Pulse Source Monitor Pulse Oximetry (%) 93 Oxygen Delivery Method room air Intake Visit Reasons: 1 Y FU Client Professional Required: No Accompanied by: Self Is patient in pain?: No Allergies No Known Allergies Allergy (Verified 08/30/24 14:51) Medications ???Medication ???Instructions ???Recorded ???Confirmed ???Type aspirin 81 mg chewable tablet 81 mg PO DAILY@0800 10/08/1308/30 History lisinopril 20 1 tab PO DAILY HTN 10/08/13 History mg-hydrochlorothiazide 12.5 mg tablet omega-3 fatty acids-fish oil 340 1 ea PO BID SUPPLEMENT 10/08/13 History mg-1,000 mg capsule coenzyme Q10 100 mg capsule (Co 100 mg PO QDAY 02/16/18 08/30/24 H istory Q-10) metoprolol tartrate 25 mg tablet 12.5 mg PO BID 05/07/19 08/30/24 H istory ascorbic acid (vitamin C) 1,000 mg 1 g PO QWEEK 05/11/21 08/30/24 H istory tablet atorvastatin 40 mg tablet 80 mg PO QHS HLD 12/17/22 08/30/24 History cholecalciferol (vitamin D3) 50 50 mcg PO DAILY 12/17/22 08/30/24 History mcg (2,000 unit) tablet (Vitamin D3) curcumin-phosphatidylch oline 500 500 mg PO DAILY 12/17/22 08/30/24 History mg capsule tamsulosin 0.4 mg capsule 0.4 mg PO QHS 12/17/22 08/30/24 Hi story vitamin B complex 1 tab PO DAILY 12/17/22 08/30/24 H istory zinc 50 mg tablet 50 mg PO DAILY 12/17/22 08/30/24 H istory metformin 500 mg tablet 500 mg PO BID BLOOD GLUCOSE 08/30/24 History red yeast rice 600 mg tablet 600 mg PO MO SUPPLEMENT 08/15/23 0 08/30/24 History CBD gummy PO DAILY 08/30/24 08/30/24 History saw palmetto 160 mg capsule 160 mg PO BID 08/30/24 08/30/24 Hi story Ejection fraction %: 65 Have you fallen in the past year?: No PFSH Medical History History of malignant neoplasm of bladder Wears partial dentures Alcohol use Prostate disease History of kidney stones High cholesterol Former smoker History of echocardiogram History of stress test Cardiology follow-up encounter COVID-19 Pure hypercholesterolemia Ischemic cardiomyopathy Type 2 diabetes mellitus Sinus bradycardia Premature ventricular contraction Premature atrial contractions Atherosclerotic heart disease of [place] coronary artery without angina pectoris Surgical History History of colonoscopy Presence of stent in coronary artery ( 10/09/13) History of hand surgery Postsurgical percutaneous transluminal coronary angioplasty (PTCA) status ( 10/09/13) Family History Sister CAD (coronary artery disease) CVA (cerebral vascular accident) Diabetes Father Parkinsons disease Mother Cancer kidney Social History Smoking Status: Former smoker how long ago did patient quit smokin years ago alcohol intake: current alcohol intake frequency: a few times a week Alcohol type: beer and wine caffeine: Yes Type: coffee Number of servings: 3 what type of physical activity do you participate in: walking and bicycling frequency: 3-4 times per week duration: 30-45 minutes/day ROS Const Const: Negative for fatigue or weakness ENT ENT: N (more content not included)... Normal [facility] Pap Stain (control)on 2023 Pap Stain (control) --- Patient Age/Sex Location Account Attending Physician TATUM MARCUS 83/M LABSPEC [id number] Dr. Lavon Garcia MD Specimen: [id number] Received: 04/06/24-1142 Status: GILES Velazquez Num: [id number] Spec Type: CYSPIN FL Subm Dr: Dr. Lavon Garcia MD HEADER OPERATION: Not noted PRE-OP DIAGNOSIS: Malignant neoplasm of overlapping sites of bladder TISSUE SUBMITTED: Urine for cytology DIAGNOSIS CYTOLOGY Urine for cytology (cytospin): Negative for high grade urothelial carcinoma, Sissy Category System II. See comment. AM.mr 04/06/2024 COMMENT The Sissy System for urine cytology diagnostic categorization was used in the evaluation of this case. Spermatozoa are present in the specimen. CYTOLOGY STUDY Slides are reviewed. CYTOLOGY GROSS Received is 40 ml of gold- cloudy fluid labeled with the patient's name and and designated per the requisition as urine. Submitted for cytology preparation. Mr 04/06/2024 TC:5 CPT: 77158 Signed (signature on file) Dr. Favian Davis, DO 04/06/24 1445 Normal [facility] Comment on above: Performed By: #### P PAPS #### [facility] [address] [place], [address] Cytology, Body Fluid / CSFon 04-05-2024 CYTOLOGY,BF/CSF SEE PATHOLOGY REPORT Normal [facility] Comment on above: Order Comment: URINE Result Comment: Spec imen submitted to Anatomical Pathology Department for testing. Performed By: #### L 350.1000 #### [facility] [address] [place], [address] Basic Metabolic Profile (BMP )on 03-05-2024 BUN/CRE 16.4 RATIO Normal 10-20 [facility] Comment on above: Order Comment: Order Date: 11/28/23Order Info: [id number] - BMPOrder Info: [id number] - LIPID Performed By: #### P PAPS #### [facility] [address] [place], [address] CA,Total 9.3 mg/dL Normal 8.5-10.1 [facility] Comment on above: Order Comment: Order Date: 11/28/23Order Info: [id number] - BMPOrder Info: [id number] - LIPID Performed By: #### P PAPS #### [facility] [address] [place], [address] Chloride [Moles/Vol] 108 mmol/L High 98-107 [facility] Comment on above: Order Comment: Order Date: 11/28/23Order Info: [id number] - BMPOrder Info: [id number] - LIPID Performed By: #### P PAPS #### [facility] [address] [place], [address] CO2 [Moles/Vol] 22.0 mmol/L Normal 21.0-32.0 [facility] Comment on above: Order Comment: Order Date: 11/28/23Order Info: [id number] - BMPOrder Info: [id number] - LIPID Performed By: #### P PAPS #### [facility] [address] [place], [address] Creatinine [Mass/Vol] 1.28 mg/dL Normal 0.70-1.30 [facility] Comment on above: Order Comment: Order Date: 11/28/23Order Info: 666- - BMPOrder Info: [id number] - LIPID Result Comment: The validity of the calculated GFR GFRAA in patients over 70 years has not been determined. Clinical correlation is essential. Performed By: #### P PAPS #### [facility] [address] [place], [place], [address] EST GFR - AA 69 mL/min Normal >60 [facility] Comment on above: Order Comment: Order Date: 11/28/23Order Info: [id number] - BMPOrder Info: [id number] - LIPID Result Comment: Afri can [place] GFR Calc Performed By: #### P PAPS #### [facility] [address] [place], [address] GAP 8 Normal 5-15 [facility] Comment on above: Order Comment: Order Date: 11/28/23Order Info: [id number] - BMPOrder Info: - LIPID Performed By: #### P PAPS #### [facility] [address] [place], [place], [address] GFR/1.73 sq M.predicted among non-blacks MDRD (S/P/Bld) [Vol rate/Area] 57 mL/min/{1.73_m2} Low >60 [facility] Comment on above: Order Comment: Order Date: 11/28/23Order Info: [id number] - BMPOrder Info: - LIPID Result Comment: Non- GFR Calc Performed By: #### P PAPS #### [facility] [address] [place], [place], [address] Glucose [Mass/Vol] 151 mg/dL High 74-[address] [facility] Comment on above: Order Comment: Order Date: 11/28/23Order Info: [id number] - BMPOrder Info: [id number] - LIPID Result Comment: Fast ing Glucose result greater than or equal to 126 mg/dL suggests DIABETES MELLITUS per A.D.A. criteria. Performed By: #### P PAPS #### [facility] [address] [place], [place], [address] Potassium [Moles/Vol] 4.1 mmol/L Normal 3.5-5.1 [facility] Comment on above: Order Comment: Order Date: 11/28/23Order Info: [id number] - BMPOrder Info: [id number] - LIPID Performed By: #### P PAPS #### [facility] [address] [place], [address] Sodium [Moles/Vol] 138 mmol/L Normal 136-[address] [facility] Comment on above: Order Comment: Order Date: 11/28/23Order Info: [id number] - BMPOrder Info: [id number] - LIPID Performed By: #### P PAPS #### [facility] [address] [place], [address] [phone] Urea nitrogen [Mass/Vol] 21 mg/dL High 7-18 [facility] Comment on above: Order Comment: Order Date: 11/28/23Order Info: [id number] - BMPOrder Info: [id number] - LIPID Performed By: #### P PAPS #### [facility] [address] [place], [address] Lipid Profileon 03-05-2024 Cholesterol [Mass/Vol] 88 mg/dL Normal 200 [facility] Comment on above: Order Comment: Order Date: 11/28/23Order Info: [id number] - BMPOrder Info: [id number] - LIPID Result Comment: <200 mg/dL Desirable 200-240 mg/dL Borderline >240 mg/dL High Risk Performed By: #### P PAPS #### [facility] [address] [place], [address] Cholesterol in HDL [Mass/Vol] 45 mg/dL Normal [facility] Comment on above: Order Comment: Order Date: 11/28/23Order Info: [id number] - BMPOrder Info: [id number] - LIPID Result Comment: The drugs N-Acetylcysteine and Metamizole may falsely depress this assay. Reference Range HDL <40 mg/dL Low HDL Cholesterol HDL >or= 60 mg/dL High HDL Cholesterol Performed By: #### P PAPS #### [facility] [address] [place], [address] Cholesterol in LDL [Mass/Vol] 24 mg/dL Normal 0-130 [facility] Comment on above: Order Comment: Order Date: 11/28/23Order Info: [id number] - BMPOrder Info: [id number] - LIPID Performed By: #### P PAPS #### [facility] [address] [place], [address] Cholesterol in VLDL [Mass/Vol] 19 mg/dL Normal 5-40 [facility] Comment on above: Order Comment: Order Date: 11/28/23Order Info: [id number] - BMPOrder Info: [id number] - LIPID Performed By: #### P PAPS #### [facility] [address] [place], [address] Triglyceride [Mass/Vol] 94 mg/dL Normal [facility] Comment on above: Order Comment: Order Date: 11/28/23Order Info: [id number] - BMPOrder Info: [id number] - LIPID Result Comment: The drugs N-Acetylcysteine and Metamizole may falsely depress this assay. Serum Triglycerides Reference Interval Normal <150 mg/dL Borderline high 150 - 199 mg/dL High 200 - 499 mg/dL Very High > or = 500 mg/dL Performed By: #### P PAPS #### [facility] [address] [place], [address] Cytology, Body Fluid / CSFon 01-03-2024 CYTOLOGY,BF/CSF SEE PATHOLOGY REPORT Normal [facility] Comment on above: Order Comment: URINE Result Comment: Spec imen submitted to Anatomical Pathology Department for testing. Performed By: #### L 350.1000 #### [facility] [address] [place], [address] Pap Stain (control)on 2023 Pap Stain (control) --- Patient Age/Sex Location Account Attending Physician TATUM MARCUS 83/M LABSPEC [id number] Dr. Lavon Garcia MD Specimen: [id number] Received: 01/04/24 Status: GILES Garciavanessa Num: [id number] Spec Type: CYSPIN FL Subm Dr: Dr. Lavon Garcia MD HEADER OPERATION: Not noted PRE-OP DIAGNOSIS: Malignant neoplasm of overlapping sites of bladder TISSUE SUBMITTED: Urine for cytology DIAGNOSIS CYTOLOGY Urine for cytology (cytospin): A few clusters of atypical urothelial cells noted (AUC), Sissy system category III. See comment. BEATRIS/ 01/04/2024 COMMENT Please make reference to previous specimen [id number] diagnosis of atypical urothelial cells noted and [id number], urinary bladder tumor, TUR, with diagnosis of papillary urothelial carcinoma. Clinical correlation and appropriate follow up are necessary. The Sissy System for urine cytology diagnostic categorization was used in the evaluation of this case. CYTOLOGY STUDY Slides are reviewed. CYTOLOGY GROSS Received is 60 ml of hazy-yellow fluid labeled with the patient's name and and designated per the requisition as urine. Submitted for cytology preparation. Mr 01/04/2024 TC:5 CPT: 89736 Signed (signature on file) Dr. Juan M Velázquez MD 01/05/24 1257 Normal [facility] Comment on above: Performed By: #### P PAPS #### [facility] [address] [facility] [place], [place], [id number] Urine Cultureon 10-11-2023 URC Culture exhibits no growth. Normal [facility] Comment on above: Performed By: #### M 100.2200 #### [facility] [address] [facility] [place], [place], [address] Culture, urineOrdered By: Connie Garcia on 10-10-2023 Bacteria identified Cx Nom (U) Culture exhibits no growth. [facility] Cytology report of Body flui d Cyto stainOrdered By: Lavon Garcia on 09-27-2023 Cytology report Cyto stain Doc (Body fld) SEE PATHOLOGY REPORT [facility] Comment on above: Specimen submitted t o Anatomical Pathology Department for testing. Cytology, Body Fluid / CSFon 09-27-2023 CYTOLOGY,BF/CSF SEE PATHOLOGY REPORT Normal [facility] Comment on above: Order Comment: URINE Result Comment: Spec imen submitted to Anatomical Pathology Department for testing. Performed By: #### P PAPS #### [facility] [place], [address] Pap Stain (control)on 2023 Pap Stain (control) Patient Age/Sex Location Account Attending Physician TATUM MARCUS 83/M LABSPEC [id number] Dr. Lavon Garcia MD Specimen: [id number] Received: 09/28/23 Status: GILES Velazquez Num: [id number] Spec Type: CYSPIN FL Subm Dr: Dr. Lavon Garcia MD HEADER OPERATION: Not noted PRE-OP DIAGNOSIS: Malignant neoplasm of lateral wall of bladder TISSUE SUBMITTED: Urine for cytology DIAGNOSIS CYTOLOGY Urine for cytology (cytospin): Atypical urothelial cells noted, (Sissy Category III). See comment. SJ/mr 09/28/23 COMMENT Clinical correlation and appropriate follow up are necessary. The Sissy System for urine cytology diagnostic categorization was used in the evaluation of this case. 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 Case has been reviewed in consultation with Dr. Davis who concurs with the above diagnosis. IDC:AM CYTOLOGY STUDY Slides are reviewed. CYTOLOGY GROSS Received is 60 ml of dark gold-yellow cloudy fluid labeled with the patient's name and and designated per the requisition as urine. Submitted for cytology preparation. mr 09/27/23 TC: 4 CPT: 52133 Signed (signature on file) Dr. Juan M Velázquez MD 09/29/23 0929 Normal [facility] Comment on above: Performed By: #### P PAPS #### [facility] [address] [place], [address] Culture, urineOrdered By: Connie Garcia on 06-27-2023 Bacteria identified Cx Nom (U) Culture exhibits no growth. [facility] Bacteria identified Cx Nom (U) Culture exhibits no growth. [facility] Absolute lymphocyte countOrd ered By: Mendel Robison on 05-30-2023 Lymphocytes Auto (Unsp spec) [#/Vol] 1.55 10*3/uL 0.83-4.51 [facility] Basophil percentageOrdered B y: Mendel Robison on 05-30-2023 Basophils/100 WBC (Bld) 0.3 % 0-1 [facility] Chloride [Moles/Vol] 107 mmol/L 98-107 [facility] Eosinophils/100 WBC (Bld) 1.0 % 0-5 [facility] Glucose [Mass/Vol] 138 mg/dL 74-[address] [facility] Comment on above: Fasting Glucose resu lt greater than or equal to 126 mg/dL suggests DIABETES MELLITUS per A.D.A. criteria. Neutrophils (Bld) [#/Vol] 8.1 10*3/uL 2.0-7.7 [facility] Neutrophils/100 WBC (Bld) 78.0 % 47-70 [facility] Potassium [Moles/Vol] 3.9 mmol/L 3.5-5.1 [facility] Sodium [Moles/Vol] 139 mmol/L 136-[address] [facility] WBC (Bld) [#/Vol] 10.4 10*3/uL 4.4-11.0 [facility] Blood erythrocytes count (nu mber/volume)Ordered By: Mendel Robison on 05-30-2023 RBC (Bld) [#/Vol] 4.65 10*6/uL 4.6-6.2 [facility] Blood hemoglobin measurement (mass/volume)Ordered By: Mendel Robison on 05-30-2023 Hemoglobin (Bld) [Mass/Vol] 14.1 g/dL 13.0-16.5 [facility] Blood lymphocytes/100 leukoc ytesOrdered By: Mendel Robison on 05-30-2023 Lymphocytes/100 WBC (Bld) 14.9 % 19-41 [facility] Blood monocytes/100 leukocyt esOrdered By: Mendel Robison on 05-30-2023 Monocytes/100 WBC (Bld) 5.4 % 0-10 [facility] Blood platelet mean volumeOr dered By: Mendel Robison on 05-30-2023 Platelet mean volume (Bld) [Entitic vol] 9.8 fL 6.2-12.0 [facility] Determination of erythrocyte mean corpuscular volume (MCV)Ordered By: Mendel Robison on 05-30-2023 MCV (RBC) [Entitic vol] 92.5 fL 80-94 [facility] Hematocrit Auto (Bld) [Volum e fraction]Ordered By: Mendel Robison on 05-30-2023 Hematocrit (Bld) [Volume fraction] 43.0 % 40-54 [facility] - Chemistry and C hemistry - challengeOrdered By: Mendel Robison on 05-30-2023 CO2 [Moles/Vol] 26.0 mmol/L 21.0-32.0 [facility] Urea nitrogen/Creatinine [Mass ratio] 13.2 mg/mg - [facility] - Hematology and Cell countsOrdered By: Mendel Robison on 05-30-2023 Erythrocyte distribution width (RBC) [Entitic vol] 44.0 fL 35.1-43.9 [facility] Erythrocyte distribution width (RBC) [Ratio] 13.1 % 11.6-14.6 [facility] Immature granulocytes/100 WBC (Bld) 0.400 % 0.0-0.9 [facility] Comment on above: IG% - Immature Granu locytes (promyelocytes, myelocytes and metamyelocytes) > 1% indicates that a LEFT SHIFT is Present. MCH (RBC) [Entitic mass] 30.3 pg 27.0-32.0 [facility] Nucleated RBC/100 WBC (Bld) [Ratio] 0 % 0-5 [facility] MCHC Auto (RBC) [Mass/Vol]Or dered By: Mendel Robison on 05-30-2023 MCHC (RBC) [Mass/Vol] 32.8 g/dL 32-36 [facility] No Panel InformationOrdered By: Mendel Robison on 05-30-2023 Estimated GFR (MDRD) Amer 74 mL/min >60 [facility] Comment on above: GFR Calc Estimated GFR (MDRD) Non-Af Amer 61 mL/min >60 [facility] Comment on above: Non- GFR Calc Platelets bldOrdered By: Izzy Robison on 05-30-2023 Platelets (Bld) [#/Vol] 235 10*3/uL 150-450 [facility] Serum or plasma calcium steve urement (mass/volume)Ordered By: Mendel Robison on 05-30-2023 Calcium [Mass/Vol] 9.3 mg/dL 8.5-10.[address] [facility] Serum or plasma creatinine m easurement (mass/volume)Ordered By: Mendel Robison on 05-30-2023 Creatinine [Mass/Vol] 1.21 mg/dL 0.70-1.30 [facility] Comment on above: The validity of the calculated GFR & GFRAA in patients over 70 years has not been determined. Clinical correlation is essential. Serum or plasma urea nitroge n measurement (mass/volume)Ordered By: Mendel Robison on 05-30-2023 Urea nitrogen [Mass/Vol] 16 mg/dL 7-18 [facility] Thin prep Papanicolaou smear with manual screeningOrdered By: Mendel Robison on 05-30-2023 Thin prep Papanicolaou smear with manual screening 6 5-15 [facility] Basophil percentageOrdered B y: Mendel Robison on 02-18-2023 Basophil percentage >100 SEEN /hpf 0-5 [facility] Bilirubin Test strip Ql (U)O rdered By: Mendel Robison on 02-18-2023 Bilirubin Ql (U) Negative Negative [facility] Culture, urineOrdered By: Jin Robison on 02-18-2023 Bacteria identified Cx Nom (U) Pseudomonas spp [facility] Bacteria identified Cx Nom (U) Pseudomonas spp [facility] Ketones Test strip Ql (U)Ord ered By: Mendel Robison on 02-18-2023 Ketones Ql (U) Negative Negative [facility] Mucus LM Ql (Urine sed)Order ed By: Mendel Robison on 02-18-2023 Mucus Ql (Urine sed) 0 SEEN /hpf [facility] Nitrite Test strip Ql (U)Ord ered By: Mendel Robison on 02-18-2023 Nitrite Ql (U) Negative Negative [facility] Protein Test strip Ql (U)Ord ered By: Mendel Robison on 02-18-2023 Protein Ql (U) 30 mg/dl Negative [facility] Squamous epithelial cells de tection in urine sediment by light microscopyOrdered By: Mendel Robison on 02-18-2023 Epithelial cells.squamous LM Ql (Urine sed) 0-5 SEEN /hpf 0-5 [facility] Urine blood detectionOrdered By: Mendel Robison on 02-18-2023 RBC Ql (U) 150 /ul Negative [facility] RBC Ql (U) 5-10 SEEN /hpf 0-5 [facility] Urine clarityOrdered By: Izzy Robison on 02-18-2023 Clarity (U) Clear Clear [facility] Urine color determinationOrd ered By: Mendel Robison on 02-18-2023 Color (U) Yellow Yellow [facility] Urine glucose detectionOrder ed By: Mendel Robison on 02-18-2023 Glucose Ql (U) 100 mg/dl Normal [facility] Urine leukocyte esterase det ection by dipstickOrdered By: Mendel Robison on 02-18-2023 Leukocyte esterase Test strip Ql (U) 500 /ul Negative [facility] Urine pHOrdered By: Tonia Robison on 02-18-2023 pH (U) 5.0 [pH] 5.0 - 8.0 [facility] Urine sediment bacteria coun t by microscopy (number/high power field)Ordered By: Mendel Robison on 02-18-2023 Bacteria LM.HPF (Urine sed) [#/Area] 2 /[HPF] None Seen [facility] Urine specific gravity measu rementOrdered By: Mendel Cedillorobb on 02-18-2023 Specific gravity (U) [Rel density] 1.015 1.002-1.030 [facility] Urobilinogen Auto test strip Ql (U)Ordered By: Mendel Enriqueta on 02-18-2023 Urobilinogen Ql (U) Normal mg/dl Normal [facility] Absolute lymphocyte countOrd ered By: Mendel Enriqueta on 01-27-2023 Lymphocytes Auto (Unsp spec) [#/Vol] 0.73 10*3/uL 0.83-4.51 [facility] Basophil percentageOrdered B y: Mendel Robison on 01-27-2023 Basophils/100 WBC (Bld) 0.4 % 0-1 [facility] Bilirubin [Mass/Vol] 1.10 mg/dL 0.20-1.00 [facility] Comment on above: For patients on eltr ombopag therapy, use of Dimension [place] TBIL is not recommended. Chloride [Moles/Vol] 101 mmol/L 98-107 [facility] Cholesterol [Mass/Vol] 123 mg/dL <200 [facility] Comment on above: <200 mg/dL Desirable 200-240 mg/dL Borderline >240 mg/dL High Risk Eosinophils/100 WBC (Bld) 0.0 % 0-5 [facility] Glucose [Mass/Vol] 202 mg/dL 74-[address] [facility] Comment on above: Glucose result great er than or equal to 200 mg/dLsuggests DIABETES MELLITUS per A.D.A. criteria. Neutrophils (Bld) [#/Vol] 7.9 10*3/uL 2.0-7.7 [facility] Neutrophils/100 WBC (Bld) 82.7 % 47-70 [facility] Potassium [Moles/Vol] 4.4 mmol/L 3.5-5.1 [facility] Protein [Mass/Vol] 7.5 g/dL 6.4-8.[address] [facility] Sodium [Moles/Vol] 134 mmol/L 136-[address] [facility] Triglyceride [Mass/Vol] 96 mg/dL <199 [facility] Comment on above: The drugs N-Acetylcy steine and Metamizole may falsely depress this assay.Serum Triglycerides Reference Interval Normal <150 mg/dL Borderline high 150 - 199 mg/dL High 200 - 499 mg/dL Very High > or = 500 mg/dL WBC (Bld) [#/Vol] 9.5 10*3/uL 4.4-11.[address] [facility] Blood erythrocytes count (nu mber/volume)Ordered By: Mendel Robison on 01-27-2023 RBC (Bld) [#/Vol] 4.99 10*6/uL 4.6-6.2 [facility] Blood hemoglobin measurement (mass/volume)Ordered By: Mendel Robison on 01-27-2023 Hemoglobin (Bld) [Mass/Vol] 15.6 g/dL 13.0-16.5 [facility] Blood lymphocytes/100 leukoc ytesOrdered By: Mendel Robison on 01-27-2023 Lymphocytes/100 WBC (Bld) 7.7 % 19-41 [facility] Blood monocytes/100 leukocyt esOrdered By: Mendel Robison on 01-27-2023 Monocytes/100 WBC (Bld) 8.7 % 0-10 [facility] Blood platelet mean volumeOr dered By: Mendel Robison on 01-27-2023 Platelet mean volume (Bld) [Entitic vol] 10.5 fL 6.2-12.0 [facility] Culture, urineOrdered By: Jin Robison on 01-27-2023 Bacteria identified Cx Nom (U) Mixed Gram Pos & Gram Neg Org [facility] Determination of erythrocyte mean corpuscular volume (MCV)Ordered By: Mendel Robison on 01-27-2023 MCV (RBC) [Entitic vol] 92.0 fL 80-94 [facility] Hematocrit Auto (Bld) [Volum e fraction]Ordered By: Mendel Robison on 01-27-2023 Hematocrit (Bld) [Volume fraction] 45.9 % 40-54 [facility] Laboratory - Chemistry and C hemistry - challengeOrdered By: Mendel Robison on 01-27-2023 ALP [Catalytic activity/Vol] 144 U/L 45-117 [facility] ALT [Catalytic activity/Vol] 19 U/L 16-61 [facility] CO2 [Moles/Vol] 25.0 mmol/L 21.0-32.0 [facility] Cobalamin (Vitamin B12) [Mass/Vol] 304 pg/mL 211-911 [facility] Globulin (S) [Mass/Vol] 4.2 g/dL 2.2-4.2 [facility] Urea nitrogen/Creatinine [Mass ratio] 12.0 mg/mg 10-20 [facility] Laboratory - Hematology and Cell countsOrdered By: Mendel Robison on 01-27-2023 Erythrocyte distribution width (RBC) [Entitic vol] 41.9 fL 35.1-43.9 [facility] Erythrocyte distribution width (RBC) [Ratio] 12.2 % 11.6-14.6 [facility] Immature granulocytes/100 WBC (Bld) 0.500 % 0.0-0.9 [facility] Comment on above: IG% - Immature Granu locytes (promyelocytes, myelocytes and metamyelocytes) > 1% indicates that a LEFT SHIFT is Present. MCH (RBC) [Entitic mass] 31.3 pg 27.0-32.0 [facility] Nucleated RBC/100 WBC (Bld) [Ratio] 0 % 0-5 [facility] MCHC Auto (RBC) [Mass/Vol]Or dered By: Mendel Robison on 01-27-2023 MCHC (RBC) [Mass/Vol] 34.0 g/dL 32-36 [facility] No Panel InformationOrdered By: Mendel Robison on 01-27-2023 Estimated GFR (MDRD) Amer 58 mL/min >60 [facility] Comment on above: GFR Calc Estimated GFR (MDRD) Non-Af Amer 48 mL/min >60 [facility] Comment on above: Non- GFR Calc Thyroid Stimulating Hormone (TSH) 0.23 uIU/mL 0.358-3.74 [facility] Platelets bldOrdered By: Izzy Robison on 01-27-2023 Platelets (Bld) [#/Vol] 146 10*3/uL 150-450 [facility] Serum or plasma albumin steve urement (mass/volume)Ordered By: Mendel Robison on 01-27-2023 Albumin [Mass/Vol] 3.3 g/dL 3.2-5.[address] [facility] Serum or plasma albumin/glob ulin mass ratioOrdered By: Mendel Robison on 01-27-2023 Albumin/Globulin [Mass ratio] 0.8 {ratio} 0.9-2.4 [facility] Serum or plasma calcium steve urement (mass/volume)Ordered By: Mendel Robison on 01-27-2023 Calcium [Mass/Vol] 9.2 mg/dL 8.5-10.[address] [facility] Serum or plasma cholesterol in HDL measurement (mass/volume)Ordered By: Mendel Robison on 01-27-2023 Cholesterol in HDL [Mass/Vol] 52 mg/dL >40 [facility] Comment on above: The drugs N-Acetylcy steine and Metamizole may falsely depress this assay. Reference Range HDL <40 mg/dL Low HDL Cholesterol HDL >or= 60 mg/dL High HDL Cholesterol Serum or plasma cholesterol in VLDL measurement (mass/volume)Ordered By: Mendel Robison on 01-27-2023 Cholesterol in VLDL [Mass/Vol] 19 mg/dL 5-40 [facility] Serum or plasma creatinine m easurement (mass/volume)Ordered By: Mendel Robison on 01-27-2023 Creatinine [Mass/Vol] 1.50 mg/dL 0.70-1.30 [facility] Comment on above: The validity of the calculated GFR & GFRAA in patients over 70 years has not been determined. Clinical correlation is essential. Serum or plasma low density lipoprotein (LDL) cholesterol measurement (mass/volume)Ordered By: Mendel Robison on 01-27-2023 Cholesterol in LDL [Mass/Vol] 52 mg/dL 0-130 [facility] Serum or plasma urea nitroge n measurement (mass/volume)Ordered By: Mendel Robison on 01-27-2023 Urea nitrogen [Mass/Vol] 18 mg/dL 7-18 [facility] Serum or plasma uric acid me asurement (mass/volume)Ordered By: Mendel Robison on 01-27-2023 Urate [Mass/Vol] 4.3 mg/dL 3.5-7.2 [facility] Comment on above: The drugs N-Acetylcy steine and Metamizole may falsely depress this assay. Thin prep Papanicolaou smear with manual screeningOrdered By: Mendel Robison on 01-27-2023 Thin prep Papanicolaou smear with manual screening 11 U/L 15-37 [facility] Thin prep Papanicolaou smear with manual screening 8 5-15 [facility] Glucose Glucometer (BldC) [M ass/Vol]Ordered By: Dr. Garcia on 12-24-2022 Glucose [Mass/Vol] 120 mg/dL 74-[address] [facility] Comment on above: MANAGEMENT OF PATIEN T CARE PER NURSING PROTOCOL Culture, urineOrdered By: Dr Alfonzo Robison on 11-18-2022 Bacteria identified Cx Nom (U) Culture exhibits no growth. [facility] Basophil percentageOrdered B y: Dr. Robison on 11-16-2022 Chloride [Moles/Vol] 108 mmol/L 98-107 [facility] Glucose [Mass/Vol] 87 mg/dL 74-[address] [facility] Potassium [Moles/Vol] 4.4 mmol/L 3.5-5.1 [facility] Sodium [Moles/Vol] 136 mmol/L 136-[address] [facility] Basophil percentage 0-5 SEEN /hpf 0-5 [facility] Bilirubin Test strip Ql (U)O rdered By: Dr. Robison on 11-16-2022 Bilirubin Ql (U) Negative Negative [facility] Culture, urineOrdered By: Jin Robison on 11-16-2022 Bacteria identified Cx Nom (U) Culture exhibits no growth. [facility] Ketones Test strip Ql (U)Ord ered By: Dr. Robison on 11-16-2022 Ketones Ql (U) 5 mg/dl Negative [facility] Laboratory - Chemistry and C hemistry - challengeOrdered By: Dr. Robison on 11-16-2022 CO2 [Moles/Vol] 21.0 mmol/L 21.0-32.0 [facility] Urea nitrogen/Creatinine [Mass ratio] 10.7 mg/mg 10-20 [facility] Mucus LM Ql (Urine sed)Order ed By: Dr. Robison on 11-16-2022 Mucus Ql (Urine sed) 0 SEEN /hpf [facility] Nitrite Test strip Ql (U)Ord ered By: Dr. Robison on 11-16-2022 Nitrite Ql (U) Negative Negative [facility] No Panel InformationOrdered By: Dr. Robison on 11-16-2022 Estimated GFR (MDRD) Amer 42 mL/min >60 [facility] Comment on above: GFR Calc Estimated GFR (MDRD) Non-Af Amer 35 mL/min >60 [facility] Comment on above: Non- GFR Calc Prostate Specific Antigen Total 1.26 ng/mL 0.0-4.0 [facility] Comment on above: This test was perfor med using the TPSA assay method for [employer] chemistry system. Values obtained with differentassay methods cannot be used interchangably.When changing PSA assays in the course of monitoring apatient, additional sequential testing should be carriedout to confirm baseline values. Urine Transitional Epithelial Cells 0 SEEN /hpf 0-5 [facility] Protein Test strip Ql (U)Ord ered By: Dr. Robison on 11-16-2022 Protein Ql (U) 15 mg/dl Negative [facility] Serum or plasma calcium steve urement (mass/volume)Ordered By: Dr. Robison on 11-16-2022 Calcium [Mass/Vol] 9.4 mg/dL 8.5-10.[address] [facility] Serum or plasma creatinine m easurement (mass/volume)Ordered By: Dr. Robison on 11-16-2022 Creatinine [Mass/Vol] 1.96 mg/dL 0.70-1.30 [facility] Comment on above: The validity of the calculated GFR & GFRAA in patients over 70 years has not been determined. Clinical correlation is essential. Serum or plasma urea nitroge n measurement (mass/volume)Ordered By: Dr. Robison on 11-16-2022 Urea nitrogen [Mass/Vol] 21 mg/dL 7-18 [facility] Squamous epithelial cells de tection in urine sediment by light microscopyOrdered By: Dr. Robison on 11-16-2022 Epithelial cells.squamous LM Ql (Urine sed) 0-5 SEEN /hpf 0-5 [facility] Thin prep Papanicolaou smear with manual screeningOrdered By: Dr. Robison on 11-16-2022 Thin prep Papanicolaou smear with manual screening 7 5-15 [facility] Urine blood detectionOrdered By: Dr. Robison on 11-16-2022 RBC Ql (U) 150 /ul Negative [facility] RBC Ql (U) 10-25 SEEN /hpf 0-5 [facility] Urine clarityOrdered By: Dr. Robison on 11-16-2022 Clarity (U) Sl. Cloudy Clear [facility] Urine color determinationOrd ered By: Dr. Robison on 11-16-2022 Color (U) Yellow Yellow [facility] Urine glucose detectionOrder ed By: Dr. Robison on 11-16-2022 Glucose Ql (U) 50 mg/dl Normal [facility] Urine leukocyte esterase det ection by dipstickOrdered By: Dr. Robison on 11-16-2022 Leukocyte esterase Test strip Ql (U) 25 /ul Negative [facility] Urine pHOrdered By: Dr. Barber britton on 11-16-2022 pH (U) 5.0 [pH] 5.0 - 8.0 [facility] Urine sediment bacteria coun t by microscopy (number/high power field)Ordered By: Dr. Robison on 11-16-2022 Bacteria LM.HPF (Urine sed) [#/Area] 0 /[HPF] None Seen [facility] Urine specific gravity measu rementOrdered By: Dr. Robison on 11-16-2022 Specific gravity (U) [Rel density] 1.015 1.002-1.030 [facility] Urobilinogen Auto test strip Ql (U)Ordered By: Dr. Robison on 11-16-2022 Urobilinogen Ql (U) 1 mg/dl Normal [facility] Culture, urineOrdered By: Dr Alfonzo Argueta on 11-08-2022 Bacteria identified Cx Nom (U) Culture exhibits no growth. [facility] Absolute lymphocyte countOrd ered By: Dr. Argueta on 11-05-2022 Lymphocytes Auto (Unsp spec) [#/Vol] 1.80 10*3/uL 0.83-4.51 [facility] Basophil percentageOrdered B y: Dr. Argueta on 11-05-2022 Basophil percentage 0-5 SEEN /hpf 0-5 [facility] Basophils/100 WBC (Bld) 0.6 % 0-1 [facility] Bilirubin [Mass/Vol] 0.80 mg/dL 0.20-1.00 [facility] Comment on above: For patients on eltr ombopag therapy, use of Dimension [place] TBIL is not recommended. Chloride [Moles/Vol] 107 mmol/L 98-107 [facility] Eosinophils/100 WBC (Bld) 1.9 % 0-5 [facility] Glucose [Mass/Vol] 177 mg/dL 74-[address] [facility] Comment on above: Fasting Glucose resu lt greater than or equal to 126 mg/dL suggests DIABETES MELLITUS per A.D.A. criteria. Neutrophils (Bld) [#/Vol] 3.9 10*3/uL 2.0-7.7 [facility] Neutrophils/100 WBC (Bld) 61.5 % 47-70 [facility] Potassium [Moles/Vol] 3.6 mmol/L 3.5-5.1 [facility] Protein [Mass/Vol] 7.5 g/dL 6.4-8.[address] [facility] Sodium [Moles/Vol] 136 mmol/L 136-[address] [facility] WBC (Bld) [#/Vol] 6.4 10*3/uL 4.4-11.[address] [facility] Bilirubin Test strip Ql (U)O rdered By: Dr. Argueta on 11-05-2022 Bilirubin Ql (U) Negative Negative [facility] Blood erythrocytes count (nu mber/volume)Ordered By: Dr. Argueta on 11-05-2022 RBC (Bld) [#/Vol] 4.80 10*6/uL 4.6-6.2 [facility] Blood hemoglobin measurement (mass/volume)Ordered By: Dr. Argueta on 11-05-2022 Hemoglobin (Bld) [Mass/Vol] 15.0 g/dL 13.0-16.5 [facility] Blood lymphocytes/100 leukoc ytesOrdered By: Dr. Argueta on 11-05-2022 Lymphocytes/100 WBC (Bld) 28.3 % 19-41 [facility] Blood monocytes/100 leukocyt esOrdered By: Dr. Argueta on 11-05-2022 Monocytes/100 WBC (Bld) 7.4 % 0-10 [facility] Blood platelet mean volumeOr dered By: Dr. Argueta on 11-05-2022 Platelet mean volume (Bld) [Entitic vol] 10.2 fL 6.2-12.0 [facility] Culture, urineOrdered By: Jessee Argueta on 11-05-2022 Bacteria identified Cx Nom (U) Culture exhibits no growth. [facility] Determination of erythrocyte mean corpuscular volume (MCV)Ordered By: Dr. Argueta on 11-05-2022 MCV (RBC) [Entitic vol] 91.5 fL 80-94 [facility] Hematocrit Auto (Bld) [Volum e fraction]Ordered By: Dr. Argueta on 11-05-2022 Hematocrit (Bld) [Volume fraction] 43.9 % 40-54 [facility] Ketones Test strip Ql (U)Ord ered By: Dr. Argueta on 11-05-2022 Ketones Ql (U) 5 mg/dl Negative [facility] Laboratory - Chemistry and C hemistry - challengeOrdered By: Dr. Argueta on 11-05-2022 ALP [Catalytic activity/Vol] 150 U/L 45-117 [facility] ALT [Catalytic activity/Vol] 38 U/L 16-61 [facility] CO2 [Moles/Vol] 26.0 mmol/L 21.0-32.0 [facility] Globulin (S) [Mass/Vol] 3.8 g/dL 2.2-4.2 [facility] Urea nitrogen/Creatinine [Mass ratio] 16.5 mg/mg 10-20 [facility] Laboratory - Hematology and Cell countsOrdered By: Dr. Argueta on 11-05-2022 Erythrocyte distribution width (RBC) [Entitic vol] 40.7 fL 35.1-43.9 [facility] Erythrocyte distribution width (RBC) [Ratio] 12.1 % 11.6-14.6 [facility] Immature granulocytes/100 WBC (Bld) 0.300 % 0.0-0.9 [facility] Comment on above: IG% - Immature Granu locytes (promyelocytes, myelocytes and metamyelocytes) > 1% indicates that a LEFT SHIFT is Present. MCH (RBC) [Entitic mass] 31.3 pg 27.0-32.0 [facility] Nucleated RBC/100 WBC (Bld) [Ratio] 0 % 0-5 [facility] MCHC Auto (RBC) [Mass/Vol]Or dered By: Dr. Argueta on 11-05-2022 MCHC (RBC) [Mass/Vol] 34.2 g/dL 32-36 [facility] Mucus LM Ql (Urine sed)Order ed By: Dr. Argueta on 11-05-2022 Mucus Ql (Urine sed) 0 SEEN /hpf [facility] Nitrite Test strip Ql (U)Ord ered By: Dr. Argueta on 11-05-2022 Nitrite Ql (U) Positive Negative [facility] No Panel InformationOrdered By: Dr. Argueta on 11-05-2022 Estimated GFR (MDRD) Amer 83 mL/min >60 [facility] Comment on above: GFR Calc Estimated GFR (MDRD) Non-Af Amer 69 mL/min >60 [facility] Comment on above: Non- GFR Calc Platelets bldOrdered By: Dr. Argueta on 11-05-2022 Platelets (Bld) [#/Vol] 175 10*3/uL 150-450 [facility] Protein Test strip Ql (U)Ord ered By: Dr. Argueta on 11-05-2022 Protein Ql (U) 100 mg/dl Negative [facility] Serum or plasma albumin steve urement (mass/volume)Ordered By: Dr. Argueta on 11-05-2022 Albumin [Mass/Vol] 3.7 g/dL 3.2-5.[address] [facility] Serum or plasma albumin/glob ulin mass ratioOrdered By: Dr. Argueta on 11-05-2022 Albumin/Globulin [Mass ratio] 1.0 {ratio} 0.9-2.4 [facility] Serum or plasma calcium steve urement (mass/volume)Ordered By: Dr. Argueta on 11-05-2022 Calcium [Mass/Vol] 9.9 mg/dL 8.5-10.[address] [facility] Serum or plasma creatinine m easurement (mass/volume)Ordered By: Dr. Argueta on 11-05-2022 Creatinine [Mass/Vol] 1.09 mg/dL 0.70-1.30 [facility] Comment on above: The validity of the calculated GFR & GFRAA in patients over 70 years has not been determined. Clinical correlation is essential. Serum or plasma urea nitroge n measurement (mass/volume)Ordered By: Dr. Argueta on 11-05-2022 Urea nitrogen [Mass/Vol] 18 mg/dL 7-18 [facility] Squamous epithelial cells de tection in urine sediment by light microscopyOrdered By: Dr. Argueta on 11-05-2022 Epithelial cells.squamous LM Ql (Urine sed) 0 SEEN /hpf 0-5 [facility] Thin prep Papanicolaou smear with manual screeningOrdered By: Dr. Argueta on 11-05-2022 Thin prep Papanicolaou smear with manual screening 27 U/L 15-37 [facility] Thin prep Papanicolaou smear with manual screening 3 5-15 [facility] Urine blood detectionOrdered By: Dr. Argueta on 11-05-2022 RBC Ql (U) 250 /ul Negative [facility] RBC Ql (U) > 100 SEEN /hpf 0-5 [facility] Urine clarityOrdered By: Dr. Argueta on 11-05-2022 Clarity (U) Cloudy Clear [facility] Urine color determinationOrd ered By: Dr. Argueta on 11-05-2022 Color (U) Red Yellow [facility] Urine glucose detectionOrder ed By: Dr. Argueta on 11-05-2022 Glucose Ql (U) 50 mg/dl Normal [facility] Urine leukocyte esterase det ection by dipstickOrdered By: Dr. Argueta on 11-05-2022 Leukocyte esterase Test strip Ql (U) 25 /ul Negative [facility] Urine pHOrdered By: Dr. Eugenio navarro on 11-05-2022 pH (U) 6.5 [pH] 5.0 - 8.0 [facility] Urine sediment bacteria coun t by microscopy (number/high power field)Ordered By: Dr. Argueta on 11-05-2022 Bacteria LM.HPF (Urine sed) [#/Area] RARE /hpf None Seen [facility] Urine specific gravity measu rementOrdered By: Dr. Argueta on 11-05-2022 Specific gravity (U) [Rel density] 1.020 1.002-1.030 [facility] Urobilinogen Auto test strip Ql (U)Ordered By: Dr. Argueta on 11-05-2022 Urobilinogen Ql (U) 1 mg/dl Normal [facility] Basophil percentageOrdered B y: Dr. Robison on 10-15-2022 Basophil percentage 0 SEEN /hpf 0-5 [facility] Bilirubin [Mass/Vol] 1.30 mg/dL 0.20-1.00 [facility] Comment on above: For patients on eltr ombopag therapy, use of Dimension [place] TBIL is not recommended. Chloride [Moles/Vol] 107 mmol/L 98-107 [facility] Cholesterol [Mass/Vol] 104 mg/dL <200 [facility] Comment on above: <200 mg/dL Desirable 200-240 mg/dL Borderline >240 mg/dL High Risk Glucose [Mass/Vol] 187 mg/dL 74-[address] [facility] Comment on above: Fasting Glucose resu lt greater than or equal to 126 mg/dL suggests DIABETES MELLITUS per A.D.A. criteria. Potassium [Moles/Vol] 4.0 mmol/L 3.5-5.1 [facility] Protein [Mass/Vol] 7.0 g/dL 6.4-8.[address] [facility] Sodium [Moles/Vol] 139 mmol/L 136-[address] [facility] Triglyceride [Mass/Vol] 105 mg/dL <199 [facility] Comment on above: The drugs N-Acetylcy steine and Metamizole may falsely depress this assay.Serum Triglycerides Reference Interval Normal <150 mg/dL Borderline high 150 - 199 mg/dL High 200 - 499 mg/dL Very High > or = 500 mg/dL Bilirubin Test strip Ql (U)O rdered By: Dr. Robison on 10-15-2022 Bilirubin Ql (U) Negative Negative [facility] Ketones Test strip Ql (U)Ord ered By: Dr. Robison on 10-15-2022 Ketones Ql (U) Negative Negative [facility] Laboratory - Chemistry and C hemistry - challengeOrdered By: Dr. Robison on 10-15-2022 ALP [Catalytic activity/Vol] 138 U/L 45-117 [facility] ALT [Catalytic activity/Vol] 32 U/L 16-61 [facility] CO2 [Moles/Vol] 26.0 mmol/L 21.0-32.0 [facility] Globulin (S) [Mass/Vol] 3.5 g/dL 2.2-4.2 [facility] Urea nitrogen/Creatinine [Mass ratio] 16.4 mg/mg 10-20 [facility] Mucus LM Ql (Urine sed)Order ed By: Dr. Robison on 10-15-2022 Mucus Ql (Urine sed) 0 SEEN /hpf [facility] Nitrite Test strip Ql (U)Ord ered By: Dr. Robison on 10-15-2022 Nitrite Ql (U) Negative Negative [facility] No Panel InformationOrdered By: Dr. Robison on 10-15-2022 Estimated GFR (MDRD) Amer 78 mL/min >60 [facility] Comment on above: GFR Calc Estimated GFR (MDRD) Non-Af Amer 64 mL/min >60 [facility] Comment on above: Non- GFR Calc Protein Test strip Ql (U)Ord ered By: Dr. Robison on 10-15-2022 Protein Ql (U) 30 mg/dl Negative [facility] Serum or plasma albumin steve urement (mass/volume)Ordered By: Dr. Robison on 10-15-2022 Albumin [Mass/Vol] 3.5 g/dL 3.2-5.[address] [facility] Serum or plasma albumin/glob ulin mass ratioOrdered By: Dr. Robison on 10-15-2022 Albumin/Globulin [Mass ratio] 1.0 {ratio} 0.9-2.4 [facility] Serum or plasma calcium steve urement (mass/volume)Ordered By: Dr. Robison on 10-15-2022 Calcium [Mass/Vol] 9.2 mg/dL 8.5-10.[address] [facility] Serum or plasma cholesterol in HDL measurement (mass/volume)Ordered By: Dr. Robison on 10-15-2022 Cholesterol in HDL [Mass/Vol] 44 mg/dL >40 [facility] Comment on above: The drugs N-Acetylcy steine and Metamizole may falsely depress this assay. Reference Range HDL <40 mg/dL Low HDL Cholesterol HDL >or= 60 mg/dL High HDL Cholesterol Serum or plasma cholesterol in VLDL measurement (mass/volume)Ordered By: Dr. Robison on 10-15-2022 Cholesterol in VLDL [Mass/Vol] 21 mg/dL 5-40 [facility] Serum or plasma creatinine m easurement (mass/volume)Ordered By: Dr. Robison on 10-15-2022 Creatinine [Mass/Vol] 1.16 mg/dL 0.70-1.30 [facility] Comment on above: The validity of the calculated GFR & GFRAA in patients over 70 years has not been determined. Clinical correlation is essential. Serum or plasma low density lipoprotein (LDL) cholesterol measurement (mass/volume)Ordered By: Dr. Robison on 10-15-2022 Cholesterol in LDL [Mass/Vol] 39 mg/dL 0-130 [facility] Serum or plasma urea nitroge n measurement (mass/volume)Ordered By: Dr. Robison on 10-15-2022 Urea nitrogen [Mass/Vol] 19 mg/dL 7-18 [facility] Squamous epithelial cells de tection in urine sediment by light microscopyOrdered By: Dr. Robison on 10-15-2022 Epithelial cells.squamous LM Ql (Urine sed) 0 SEEN /hpf 0-5 [facility] Thin prep Papanicolaou smear with manual screeningOrdered By: Dr. Robison on 10-15-2022 Thin prep Papanicolaou smear with manual screening 21 U/L 15-37 [facility] Thin prep Papanicolaou smear with manual screening 6 5-15 [facility] Urine blood detectionOrdered By: Dr. Robison on 10-15-2022 RBC Ql (U) 50 /ul Negative [facility] RBC Ql (U) 0-5 SEEN /hpf 0-5 [facility] Urine clarityOrdered By: Dr. Robison on 10-15-2022 Clarity (U) Clear Clear [facility] Urine color determinationOrd ered By: Dr. Robison on 10-15-2022 Color (U) Yellow Yellow [facility] Urine glucose detectionOrder ed By: Dr. Robison on 10-15-2022 Glucose Ql (U) 250 mg/dl Normal [facility] Urine leukocyte esterase det ection by dipstickOrdered By: Dr. Robison on 10-15-2022 Leukocyte esterase Test strip Ql (U) Negative Negative [facility] Urine pHOrdered By: Dr. Barber britton on 10-15-2022 pH (U) 5.0 [pH] 5.0 - 8.0 [facility] Urine sediment bacteria coun t by microscopy (number/high power field)Ordered By: Dr. Rboison on 10-15-2022 Bacteria LM.HPF (Urine sed) [#/Area] 0 /[HPF] None Seen [facility] Urine specific gravity measu rementOrdered By: Dr. Robison on 10-15-2022 Specific gravity (U) [Rel density] 1.025 1.002-1.030 [facility] Urobilinogen Auto test strip Ql (U)Ordered By: Dr. Robison on 10-15-2022 Urobilinogen Ql (U) Normal mg/dl Normal [facility] Whole blood hemoglobin A1c/t otal hemoglobin ratio (mass fraction)Ordered By: Dr. Robison on 10-15-2022 HbA1c (Bld) [Mass fraction] 9.4 % 3.8-5.6 [facility] Comment on above: Normal < 5.7 % Predi abetic 5.7 - 6.4 % Diabetic >or= 6.5 % Please note range changes. Basophil percentageOrdered B y: Dr. Robison on 08-03-2022 Basophil percentage 0-5 SEEN /hpf 0-5 [facility] Bilirubin Test strip Ql (U)O rdered By: Dr. Robison on 08-03-2022 Bilirubin Ql (U) Negative Negative [facility] Ketones Test strip Ql (U)Ord ered By: Dr. Robison on 08-03-2022 Ketones Ql (U) Negative Negative [facility] Mucus LM Ql (Urine sed)Order ed By: Dr. Robison on 08-03-2022 Mucus Ql (Urine sed) 0 SEEN /hpf [facility] Nitrite Test strip Ql (U)Ord ered By: Dr. Robison on 08-03-2022 Nitrite Ql (U) Negative Negative [facility] Protein Test strip Ql (U)Ord ered By: Dr. Robison on 08-03-2022 Protein Ql (U) 30 mg/dl Negative [facility] Squamous epithelial cells de tection in urine sediment by light microscopyOrdered By: Dr. Robison on 08-03-2022 Epithelial cells.squamous LM Ql (Urine sed) 0-5 SEEN /hpf 0-5 [facility] Urine blood detectionOrdered By: Dr. Robison on 08-03-2022 RBC Ql (U) 25 /ul Negative [facility] RBC Ql (U) 0-5 SEEN /hpf 0-5 [facility] Urine clarityOrdered By: Dr. Robison on 08-03-2022 Clarity (U) Clear Clear [facility] Urine color determinationOrd ered By: Dr. Robison on 08-03-2022 Color (U) Yellow Yellow [facility] Urine glucose detectionOrder ed By: Dr. Robison on 08-03-2022 Glucose Ql (U) 250 mg/dl Normal [facility] Urine leukocyte esterase det ection by dipstickOrdered By: Dr. Robison on 08-03-2022 Leukocyte esterase Test strip Ql (U) 25 /ul Negative [facility] Urine pHOrdered By: Dr. Barber britton on 08-03-2022 pH (U) 5.0 [pH] 5.0 - 8.0 [facility] Urine sediment bacteria coun t by microscopy (number/high power field)Ordered By: Dr. Robison on 08-03-2022 Bacteria LM.HPF (Urine sed) [#/Area] 0 /[HPF] None Seen [facility] Urine specific gravity measu rementOrdered By: Dr. Robison on 08-03-2022 Specific gravity (U) [Rel density] 1.020 1.002-1.030 [facility] Urobilinogen Auto test strip Ql (U)Ordered By: Dr. Robison on 08-03-2022 Urobilinogen Ql (U) Normal mg/dl Normal [facility] Culture, urineOrdered By: Dr Alfonzo Robison on 07-08-2022 Bacteria identified Cx Nom (U) Positive [facility] Basophil percentageOrdered B y: Dr. Robison on 07-06-2022 Basophil percentage 0-5 SEEN /hpf 0-5 [facility] Bilirubin Test strip Ql (U)O rdered By: Dr. Robison on 07-06-2022 Bilirubin Ql (U) Negative Negative [facility] Ketones Test strip Ql (U)Ord ered By: Dr. Robison on 07-06-2022 Ketones Ql (U) Negative Negative [facility] Mucus LM Ql (Urine sed)Order ed By: Dr. Robison on 07-06-2022 Mucus Ql (Urine sed) 0 SEEN /hpf [facility] Nitrite Test strip Ql (U)Ord ered By: Dr. Robison on 07-06-2022 Nitrite Ql (U) Negative Negative [facility] Protein Test strip Ql (U)Ord ered By: Dr. Robison on 07-06-2022 Protein Ql (U) 30 mg/dl Negative [facility] Squamous epithelial cells de tection in urine sediment by light microscopyOrdered By: Dr. Robison on 07-06-2022 Epithelial cells.squamous LM Ql (Urine sed) 0-5 SEEN /hpf 0-5 [facility] Urine blood detectionOrdered By: Dr. Robison on 07-06-2022 RBC Ql (U) 250 /ul Negative [facility] RBC Ql (U) 25-50 SEEN /hpf 0-5 [facility] Urine clarityOrdered By: Dr. Robison on 07-06-2022 Clarity (U) Sl. Cloudy Clear [facility] Urine color determinationOrd ered By: Dr. Robison on 07-06-2022 Color (U) Yellow Yellow [facility] Urine glucose detectionOrder ed By: Dr. Robison on 07-06-2022 Glucose Ql (U) 50 mg/dl Normal [facility] Urine leukocyte esterase det ection by dipstickOrdered By: Dr. Robison on 07-06-2022 Leukocyte esterase Test strip Ql (U) 25 /ul Negative [facility] Urine pHOrdered By: Dr. Barber britton on 07-06-2022 pH (U) 6.0 [pH] 5.0 - 8.0 [facility] Urine sediment bacteria coun t by microscopy (number/high power field)Ordered By: Dr. Robison on 07-06-2022 Bacteria LM.HPF (Urine sed) [#/Area] 1 /[HPF] None Seen [facility] Urine specific gravity measu rementOrdered By: Dr. Robison on 07-06-2022 Specific gravity (U) [Rel density] 1.015 1.002-1.030 [facility] Urobilinogen Auto test strip Ql (U)Ordered By: Dr. Robison on 07-06-2022 Urobilinogen Ql (U) 1 mg/dl Normal [facility] Basophil percentageon 2021 Bilirubin [Mass/Vol] 1.10 mg/dL 0.20-1.00 [facility] Work Phone: Comment on above: For patients on eltr ombopag therapy, use of Dimension [place] TBIL is not recommended. Chloride [Moles/Vol] 106 mmol/L 98-107 [facility] Work Phone: Glucose [Mass/Vol] 148 mg/dL 74-[address] [facility] Work Phone: Comment on above: Fasting Glucose resu lt greater than or equal to 126 mg/dL suggests DIABETES MELLITUS per A.D.A. criteria. Potassium [Moles/Vol] 4.3 mmol/L 3.5-5.1 [facility] Work Phone: Protein [Mass/Vol] 7.0 g/dL 6.4-8.[address] [facility] Work Phone: Sodium [Moles/Vol] 138 mmol/L 136-[address] [facility] Work Phone: Laboratory - Chemistry and C hemistry - challengeon 01-07-2022 ALP [Catalytic activity/Vol] 121 U/L 45-117 [facility] Work Phone: ALT [Catalytic activity/Vol] 42 U/L 16-61 [facility] Work Phone: CO2 [Moles/Vol] 26.0 mmol/L 21.0-32.0 [facility] Work Phone: Globulin (S) [Mass/Vol] 3.5 g/dL 2.2-4.2 [facility] Work Phone: Urea nitrogen/Creatinine [Mass ratio] 12.3 mg/mg 10-20 [facility] Work Phone: No Panel Informationon 01-07 Estimated GFR (MDRD) Amer 79 mL/min >60 [facility] Work Phone: Comment on above: GFR Calc Estimated GFR (MDRD) Non-Af Amer 65 mL/min >60 [facility] Work Phone: Comment on above: Non- GFR Calc Serum or plasma albumin steve urement (mass/volume)on 01-07-2022 Albumin [Mass/Vol] 3.5 g/dL 3.2-5.[address] [facility] Work Phone: Serum or plasma albumin/glob ulin mass ratioon 01-07-2022 Albumin/Globulin [Mass ratio] 1.0 {ratio} 0.9-2.4 [facility] Work Phone: Serum or plasma calcium steve urement (mass/volume)on 01-07-2022 Calcium [Mass/Vol] 9.4 mg/dL 8.5-10.[address] [facility] Work Phone: Serum or plasma creatinine m easurement (mass/volume)on 01-07-2022 Creatinine [Mass/Vol] 1.14 mg/dL 0.70-1.30 [facility] Work Phone: Comment on above: The validity of the calculated GFR & GFRAA in patients over 70 years has not been determined. Clinical correlation is essential. Serum or plasma urea nitroge n measurement (mass/volume)on 01-07-2022 Urea nitrogen [Mass/Vol] 14 mg/dL 7-18 [facility] Work Phone: Thin prep Papanicolaou smear with manual screeningon 01-07-2022 Thin prep Papanicolaou smear with manual screening 30 U/L 15-37 [facility] Work Phone: Thin prep Papanicolaou smear with manual screening 6 5-15 [facility] Work Phone: Office Visiton 02-16-2017 Dietary management education, guidance, and counseling (procedure) yes Invalid Interpretation Code [employer] [facility] Work Phone: [phone] Documentation of current medications (procedure) Done Invalid Interpretation Code [facility] Work Phone: [phone] Fall risk assessment No Invalid Interpretation Code [employer] Work Phone: [phone] Tobacco use [facility]PH[facility] Former smoker Invalid Interpretation Code [facility] Work Phone: [phone] Lab Report: Lipid Profileon 02-14-2017 Cholesterol 152 mg/dL Invalid Interpretation Code 200 [facility] Work Phone: [phone] HDL Cholesterol 51 mg/dL Invalid Interpretation Code [employer] Work Phone: [phone] LDL Cholesterol 73 mg/dL Invalid Interpretation Code 0-130 [facility] Work Phone: [phone] Triglyceride 141 mg/dL Invalid Interpretation Code [facility] Work Phone: [phone] very low density lipoproteins 28 mg/dL Invalid Interpretation Code 5-40 [facility] Work Phone: [phone] Lab Report: Liver Profileon 02-14-2017 Alanine aminotransferase (ALT) 38 U/L Invalid Interpretation Code 12-78 [facility] Work Phone: [phone] Albumin 3.5 g/dL Invalid Interpretation Code 3.4-5.0 [facility] Work Phone: [phone] Alkaline phosphatase (ALP) 127 U/L High 45-117 [facility] Work Phone: [phone] Aspartate aminotransferase (AST) 23 U/L Invalid Interpretation Code 15-37 [employer] Phone: [phone] Bilirubin (direct) 0.23 mg/dL Invalid Interpretation Code 0.00-0.30 [facility] Work Phone: [phone] Bilirubin (total) 1.00 mg/dL Invalid Interpretation Code 0.20-1.00 [facility] Work Phone: [phone] Globulin 4.0 g/dL High 2.3-3.5 [facility] Work Phone: [phone] Protein 7.5 g/dL Invalid Interpretation Code 6.4-8.2 [facility] Work Phone: [phone] Lab Report: Testosterone, Se rum Totalon 08-18-2016 Testosterone 218 ng/dL Low 241-827 [facility] Work Phone: [phone] Lab Report: Glucoseon 2016 Glucose 141 mg/dL High 70-110 [employer] Phone: [phone] Lab Report: Hemoglobin A1con 08-17-2016 HbA1c 6.6 % High 4.2-6.3 [employer] Phone: [phone] Office Visiton 03-31-2016 Dietary management education, guidance, and counseling (procedure) yes Invalid Interpretation Code [employer] Phone: [phone] Documentation of current medications (procedure) Done Invalid Interpretation Code [employer] Phone: [phone] Tobacco use [facility] Former smoker Invalid Interpretation Code [employer] Phone: [phone] Clinical Lists Update: Prelo plastic sheeting cutter 03-24-2016 Left ventricular Ejection fraction 60 % Invalid Interpretation Code [employer] Phone: [phone] Lab Report: Basic Metabolic Profile (BMP)on 02-06-2016 Anion gap 8 mmol/L Invalid Interpretation Code 5-15 [employer] Phone: [phone] BUN/Creatinine Ratio 15.6 RATIO Invalid Interpretation Code 10-20 [employer] Phone: [phone] Calcium 8.8 mg/dL Invalid Interpretation Code 8.5-10.1 [employer] Phone: [phone] Chloride 106 mmol/L Invalid Interpretation Code 98-107 [employer] Phone: [phone] CO2 24.0 mmol/L Invalid Interpretation Code 21.0-32.0 [employer] Phone: [phone] Creatinine 1.09 mg/dL Invalid Interpretation Code 0.70-1.30 [employer] Phone: [phone] eGFR (non-black) 70 mL/min/{1.73_m2} Invalid Interpretation Code >60 [employer] Phone: [phone] eGFR (non-black) 85 mL/min/{1.73_m2} Invalid Interpretation Code >60 [employer] Phone: [phone] Potassium 3.8 mmol/L Invalid Interpretation Code 3.5-5.1 [employer] Phone: [phone] Sodium 138 mmol/L Invalid Interpretation Code 136-145 [employer] Phone: [phone] Urea nitrogen 17 mg/dL Invalid Interpretation Code 7-18 [facility] Work Phone: [phone] Office Visiton 09-10-2015 General cardiovascular disease 10Y risk [#] [place] N/A Invalid Interpretation Code [facility] Work Phone: [phone] Lab Report: Liver Profileon 08-16-2014 GE use only - for [employer] import when terms are not otherwise specified 135 U/L Invalid Interpretation Code 50-136 [facility] Work Phone: [phone] Office Visiton 08-05-2014 cardiac risk group C Invalid Interpretation Code [facility] Work Phone: [phone] Replaced Document: Nikki HIRSCH Observationson 08-05-2014 electrocardiogram interpretation Sinus Rhythm - occasional PAC # PACs = 1.-Nonspecific ST depression + Nonspecific T-abnormality -Nondiagnostic. ABNORMAL Invalid Interpretation Code [facility] Work Phone: [phone] P wave axis, electrocardiogram 45 deg Invalid Interpretation Code [facility] Work Phone: [phone] DC interval, electrocardiogram 198 ms Invalid Interpretation Code [facility] Work Phone: [phone] Pulse (Heart Rate) 82 /min Invalid Interpretation Code [employer] Phone: [phone] QRS axis, electrocardiogram 10 deg Invalid Interpretation Code [facility] Work Phone: [phone] QRS duration, electrocardiogram 102 ms Invalid Interpretation Code [facility] Work Phone: [phone] QT interval, electrocardiogram new path ms Invalid Interpretation Code [facility] Work Phone: [phone] T wave axis, electrocardiogram 90 deg Invalid Interpretation Code [employer] Phone: [phone] Lab Report: CBCon 10-03-2013 Erythrocytes (RBC) 5.53 10*6/uL Normal 4.6-6.[address] [employer] [address] [facility] Work Phone: [phone] Hematocrit (HCT) 48.1 % Normal 40-54 [employer] Work Phone: [phone] Hemoglobin (HGB) 17.1 g/dL High 13.0-16.5 [employer] Work Phone: [phone] MCH 30.9 pg Normal 27.0-32.0 [facility] Work Phone: [phone] MCHC 35.6 G/GL Normal 32-36 [facility] Work Phone: [phone] MCV 87.0 fL Normal 80-94 [facility] Work Phone: [phone] Platelets 165 10*3/mm3 Normal 150-450 [facility] Work Phone: [phone] PMV by Lacyker 10.9 fL Normal 6.2-12.0 [facility] Work Phone: [phone] WBC (Leukocytes) 5.2 10*3/uL Normal 4.4-11.0 [facility] Work Phone: [phone] Lab Report: PTon 10-03-2013 INR in blood by coagulation 1.0 {INR} Normal [facility] Work Phone: [phone] prothrombin time, actual/normal, ratio 12.9 SECONDS Normal 11.9-14.4 [facility] Work Phone: [phone] Lab Report: MGon 08-21-2013 Magnesium 1.9 mg/dL Normal 1.8-2.4 [facility] Work Phone: [phone] Lab Report: T4on 08-21-2013 Thyroxine (T4) 9.0 ug/dL Normal 4.5-12.1 [facility] Work Phone: [phone] Lab Report: TSHon 08-21-2013 Thyroid stimulating hormone (TSH) 0.67 u[iU]/mL Normal 0.358-3.74 [facility] Work Phone: [phone] Office Visiton 08-16-2013 Alcoholism counseling (procedure) no Invalid Interpretation Code [facility] Work Phone: [phone] Culture, urine Bacteria identified Cx Nom (U) Positive [facility] Work Phone: Vital Signs Date Time Vital Sign Value Performing Clinician Koreyi magdaleno 08-30-2024 14:50-0500 Body height 185.[address] Margarito Robison MD Work Phone: [facility] 08-30-2024 14:50-0500 Body mass index (BMI) [Ratio] 30.6 kg/m2 Dr. Margarito Robison MD Work Phone: [facility] 08-30-2024 14:50-0500 Body weight 105.[address] Margarito Robison MD Work Phone: [facility] 08-30-2024 14:50-0500 Diastolic blood pressure 56 mm[Hg] Dr. Margarito Robison MD Work Phone: [facility] 08-30-2024 14:50-0500 Heart rate 69 /min Dr. Margarito Robison MD Work Phone: [phone] [place] [address] 08-30-2024 14:50-0500 Respiratory rate 18 /min Dr. Margarito Robison MD Work Phone: [phone] [place] [address] 08-30-2024 14:50-0500 SaO2% (BldA) [Mass fraction] 93 % Dr. Margarito Robison MD Work Phone: [facility] 08-30-2024 14:50-0500 Systolic blood pressure 115 mm[Hg] Dr. Margarito Robison MD Work Phone: [facility] 08-15-2023 13:11-0500 Body height 185.[address] Angus Argueta Work Phone: [facility] 08-15-2023 13:11-0500 Body mass index (BMI) [Ratio] 29.8 kg/m2 Dr. Angus Argueta Work Phone: [facility] 08-15-2023 13:11-0500 Body weight 102.[address] Angus Argueta Work Phone: [facility] 08-15-2023 13:11-0500 Diastolic blood pressure 87 mm[Hg] Dr. Angus Argueta Work Phone: [facility] 08-15-2023 13:11-0500 Heart rate 44 /min Dr. Angus Argueta Work Phone: [facility] 08-15-2023 13:11-0500 Respiratory rate 14 /min Dr. Angus Argueta Work Phone: [facility] 08-15-2023 13:11-0500 Systolic blood pressure 139 mm[Hg] Dr. Angus Argueta Work Phone: [facility] 12-24-2022 17:24-0400 Body temperature 96.9 [degF] [facility] 12-24-2022 17:24-0400 Diastolic blood pressure 71 mm[Hg] [facility] 12-24-2022 17:24-0400 Heart rate 61 /min [facility] 12-24-2022 17:24-0400 Respiratory rate 14 /min [facility] 12-24-2022 17:24-0400 SaO2% (BldA) [Mass fraction] 96 % [facility] 12-24-2022 17:24-0400 Systolic blood pressure 153 mm[Hg] [facility] 12-24-2022 11:42-0400 Body height 185.[address] [facility] 12-24-2022 11:42-0400 Body mass index (BMI) [Ratio] 30.2 kg/m2 [facility] 12-24-2022 11:42-0400 Body weight 103.[address] [facility] 05-28-2022 13:33-0500 Body height 185.42 cm No Primary Care Physician [facility] 05-28-2022 13:33-0500 Body mass index (BMI) [Ratio] 31.6 kg/m2 No Primary Care Physician [facility] 05-28-2022 13:33-0500 Body weight 108.91 kg No Primary Care Physician [facility] 05-28-2022 13:33-0500 Diastolic blood pressure 70 mm[Hg] No Primary Care Physician [facility] 05-28-2022 13:33-0500 Heart rate 72 /min No Primary Care Physician [facility] 05-28-2022 13:33-0500 Respiratory rate 18 /min No Primary Care Physician [facility] 05-28-2022 13:33-0500 Systolic blood pressure 148 mm[Hg] No Primary Care Physician [facility] 02-16-2017 15:33-0400 BMI (Body Mass Index) 31.13 kg/m2 Lisadevan [facility] Work Phone: 02-16-2017 15:33-0400 BP Diastolic 60 mm[Hg] [facility] Work Phone: 02-16-2017 15:33-0400 BP Systolic 122 mm[Hg] [facility] Work Phone: 02-16-2017 15:33-0400 Height 185.42 cm Rudy [facility] Work Phone: 02-16-2017 15:33-0400 Pulse (Heart Rate) 76 /min [facility] Work Phone: 02-16-2017 15:33-0400 Respiratory Rate 18 /min [facility] Work Phone: 02-16-2017 15:33-0400 Weight 107.05 kg [facility] Work Phone: 03-31-2016 15:25-0400 BMI (Body Mass Index) 30.71 kg/m2 Haja Mccain MD [facility] Work Phone: 03-31-2016 15:25-0400 BP Diastolic 70 mm[Hg] Haja Mccain MD [facility] Work Phone: 03-31-2016 15:25-0400 BP Systolic 132 mm[Hg] Haja Mccain MD [facility] Work Phone: 03-31-2016 15:25-0400 BSA (Body Surface Area) 2.3 m2 Haja Mccain MD [facility] Work Phone: 03-31-2016 15:25-0400 Pulse (Heart Rate) 72 /min [facility] Work Phone: 03-31-2016 15:25-0400 Weight 105.6 kg Haja Mccain MD [facility] Work Phone: 09-10-2015 15:20-0500 Respiratory Rate 16 /min Haja Mccain MD [facility] Work Phone: 08-16-2013 14:05-0500 Height 185.42 cm Haja Mccain MD [facility] Work Phone: Encounters Encounter Date Encounter Type Care Provider Facility Start: 09-04-2024 End: 09-04-[address] Margarito Robison MD Work Phone: [facility] Work Phone: Start: 09-04-2024 End: 09-04-[address] Margarito Robison MD -[facility] Start: 09-04-2024 End: 09-04-2024 ambulatory [facility] Facility:[facility] Start: 08-30-2024 End: 08-30-[address] Augustin Begum MD -[facility] Work Phone: Start: 08-30-2024 End: 08-30-2024 ambulatory [facility] Facility:[facility] [place] Start: 04-05-2024 End: 04-05-2024 ambulatory [facility] Facility:[facility] Start: 03-05-2024 End: 03-05-2024 ambulatory [facility] Facility:[facility] Start: 01-03-2024 End: 01-03-2024 ambulatory Lavon Garcia Facility:[facility] Start: 10-10-2023 End: 10-10-[address] Angus Argueta Work Phone: [facility] Work Phone: Start: 10-10-2023 End: 10-10-[address] Angus Argueta Work Phone: [facility] Work Phone: Start: 10-10-2023 End: 10-10-2023 ambulatory Lavon Garcia Facility:[facility] Start: 09-27-2023 End: 09-27-[address] Angus Argueta Work Phone: [facility] Work Phone: Start: 09-27-2023 End: 09-27-[address] Angus Argueta Work Phone: [facility] Work Phone: Start: 09-27-2023 End: 09-27-2023 ambulatory Lavon Garcia Facility:[facility] Start: 08-15-2023 End: 08-15-[address] Angus Argueta Work Phone: [facility] Work Phone: Start: 06-27-2023 End: 06-27-2023 ambulatory [facility] Work Phone: Start: 06-27-2023 End: 06-27-2023 [facility] Start: 05-30-2023 End: 05-30-2023 ambulatory [facility] Work Phone: Start: 05-30-2023 End: 05-30-2023 Patient encounter procedure [facility] Start: 02-18-2023 End: 02-18-[address] Mendel Robison Work Phone: [facility] Work Phone: Start: 02-18-2023 End: 02-18-[address] Mendel Robison [facility] Work [facility] Start: 01-27-2023 End: 01-27-[address] Mendel Robison Work Phone: [facility] Work Phone: Start: 12-24-2022 End: 12-24-2022 Admission to same day surgery center [facility] Start: 12-24-2022 End: 12-24-2022 ambulatory [facility] Work Phone: Start: 12-20-2022 End: 12-20-2022 Non-patient / Non-visit Dr. Mendel Robison Work Phone: [facility] Work Phone: Start: 11-17-2022 End: 11-17-[address] Angus Argueta Work Phone: [facility] Work Phone: Start: 11-17-2022 End: 11-17-[address] Angus Argueta Work Phone: [facility] Start: 11-16-2022 End: 11-16-[address] Angus Argueta Work Phone: [facility] Work Phone: Start: 11-16-2022 End: 11-16-[address] Angus Argueta Work Phone: [facility] Start: 11-05-2022 End: 11-05-[address] Angus Argueta Work Phone: [facility] Work Phone: Start: 11-05-2022 End: 11-05-[address] Angus Argueta Work Phone: [facility] Start: 10-15-2022 End: 10-15-[address] Angus Argueta Work Phone: [facility] Work Phone: Start: 10-15-2022 End: 10-15-[address] Angus Argueta Work Phone: [facility] Start: 08-24-2022 Non-patient / Non-visit No Primary Care Physician [facility] Start: 08-24-2022 End: 08-24-2022 ambulatory No Primary Care Physician [facility] Work Phone: Start: 08-24-2022 End: 08-24-2022 Patient encounter procedure No Primary Care Physician [facility] Start: 08-03-2022 End: 08-03-2022 ambulatory No Primary Care Physician [facility] Work Phone: Start: 08-03-2022 End: 08-03-2022 Patient encounter procedure No Primary Care Physician [facility], [facility] Start: 07-06-2022 End: 07-06-2022 ambulatory No Primary Care Physician [facility] Work Phone: Start: 07-06-2022 End: 07-06-2022 Patient encounter procedure No Primary Care Physician [facility] Start: 05-28-2022 End: 05-28-2022 Patient encounter procedure No Primary Care Physician [facility] Start: 01-07-2022 End: 01-07-2022 Patient encounter procedure [facility] [place] Procedures Date Procedure Procedure Detail Performing Clinician Start: 10-10-[address] Angus Argueta Work Phone: Start: 06-27-2023 Urine culture Start: 02-18-2023 Bacteria identified in Urine by Culture Dr. Mendel Robison Work Phone: Start: 02-18-[address] Josep Robison Work Phone: Start: 01-27-2023 Bacteria identified in Urine by Culture Dr. Mendel Robison Work Phone: Start: 01-27-[address] Josep Robison Work Phone: Start: 12-24-2022 Cysto,Transurethal R esec Bladder,[employer] (Not Applicable) Start: 11-17-[address] Jessee Argueta Work Phone: Start: 11-16-2022 Bacteria identified in Urine by Culture Dr. Mendel Robison Work Phone: Start: 11-16-[address] Josep Robison Work Phone: Start: 11-05-2022 Bacteria identified in Urine by Culture Dr. Mendel Robison Work Phone: Start: 11-05-[address] Josep Robison Work Phone: Start: 08-24-2022 Radionuclide imaging of perfusion of myocardium under exercise stress No Primary Care Physician Start: 02-16-2017 End: 02-16-2017 Follow Up Appt 1 year Haja Sanchez Start: 02-16-2017 End: 02-16-2017 PFM Haja Mccain MD Start: 02-14-2017 End: 02-14-2017 *Hepatic Function Panel Haja Mccain MD Start: 02-14-2017 End: 02-14-2017 Lipid panel [AGGREGATE] Haja Mccain MD Start: 08-09-2016 End: 08-17-2016 *Hepatic Function Panel Haja Mccain MD Start: 08-09-2016 End: 08-17-2016 Lipid panel [AGGREGATE] Haja Mccain MD Start: 03-31-2016 End: 03-31-2016 Follow Up Appt 9 months Haja Mccain MD Start: 03-31-2016 End: 03-31-2016 PFM Haja Mccain MD Start: 01-30-2016 End: 02-06-2016 *Hepatic Function Panel Haja Mccain MD Start: 01-30-2016 End: 02-06-2016 Lipid panel [AGGREGATE] Haja Mccain MD Start: 09-10-2015 End: 09-10-2015 Follow Up Appt 6 months Haja Mccain MD Start: 09-10-2015 End: 09-10-2015 PFM Haja Mccain MD Start: 07-01-2015 End: 08-01-2015 *Hepatic Function Panel Haja Mccain MD Start: 07-01-2015 End: 08-01-2015 Lipid panel [AGGREGATE] Haja Mccain MD Start: 03-07-2015 End: 03-07-2015 Documentation of current medications Haja Mccain MD Start: 03-07-2015 End: 03-24-2015 Echocardiography Haja Mccain MD Start: 03-07-2015 End: 03-07-2015 Follow Up Appt 6 months Haja Mccain MD Start: 03-07-2015 End: 03-07-2015 PFM Haja Mccain MD Start: 12-30-2014 End: 12-30-2014 *Hepatic Function Panel Haja Mccain MD Start: 12-30-2014 End: 12-30-2014 Lipid panel [AGGREGATE] Haja Mccain MD Start: 08-05-2014 End: 08-19-2014 *Hepatic Function Panel Haja Mccain MD Start: 08-05-2014 End: 08-06-2014 Electrocardiogram, complete Haja farmer MD Start: 08-05-2014 End: 08-06-2014 Follow Up Appt 6 months Haja Mccain MD Start: 08-05-2014 End: 08-19-2014 Lipid panel [AGGREGATE] Haja Mccain MD Start: 08-05-2014 End: 08-06-2014 PFM Haja Mccain MD Start: 01-21-2014 End: 01-29-2014 Echocardiography Haja Mccain MD Start: 01-21-2014 End: 01-21-2014 Electrocardiogram, complete Haja farmer MD Start: 01-21-2014 End: 01-21-2014 Follow Up Appt 6 months Haja Mccain MD Start: 01-21-2014 End: 01-21-2014 PFM Haja Mccain MD Start: 12-19-2013 End: 02-06-2016 24 hour holter monitor Haja Mccain MD Start: 10-15-2013 End: 02-06-2016 Cardiac Rehab Haja Mccain MD Start: 10-15-2013 End: 02-06-2016 Cardiovascular stress test using treadmill Haja Mccain MD Start: 10-15-2013 End: 10-15-2013 Electrocardiogram, complete Haja farmer MD Start: 10-15-2013 End: 10-15-2013 Follow Up Appt 3 months Haja Mccain MD Start: 10-15-2013 End: 10-15-2013 PFM Haja Mccain MD Start: 09-27-2013 End: 10-03-2013 *BMP Haja Mccain MD Start: 09-27-2013 End: 10-03-2013 aPTT Haja Mccain MD Start: 09-27-2013 End: 10-03-2013 CBC W Auto Differential panel - Blood Haja Mccain MD Start: 09-27-2013 End: 10-04-2013 Chest x-ray Haja Mccain MD Start: 09-27-2013 End: 10-03-2013 Coagulation factor induced.INR assay in platelet poor plasma Haja Mccain MD Start: 09-27-2013 End: 09-27-2013 Electrocardiogram, complete Haja farmer MD Start: 09-27-2013 End: 09-28-2013 Follow Up Appt Other Haja Mccain MD Start: 09-27-2013 End: 02-06-2016 Left Heart Cath Haja Mccain MD Start: 08-16-2013 End: 08-21-2013 *BMP Haja Mccain MD Start: 08-16-2013 End: 08-21-2013 *CBC with Differential Haja Mccain MD Start: 08-16-2013 End: 09-28-2013 24 hour holter monitor Haja Mccain MD Start: 08-16-2013 End: 09-28-2013 Echocardiography Haja Mccain MD Start: 08-16-2013 End: 09-28-2013 Electrocardiogram, complete Haja farmer MD Start: 08-16-2013 End: 08-16-2013 Follow Up Appt 6 weeks Haja Mccain MD Start: 08-16-2013 End: 09-28-2013 Follow Up Appt Other Haja Mccain MD Start: 08-16-2013 End: 08-21-2013 Magnesium Haja Mccain MD Start: 08-16-2013 End: 09-25-2013 Nuclear stress test -exercise Haja proctor MD Start: 08-16-2013 End: 08-16-2013 PFM Haja Mccain MD Start: 08-16-2013 End: 08-21-2013 Thyroid stimulating hormone (TSH) Haja Mccain MD Start: 08-16-2013 End: 08-21-2013 Thyroxine (T4) Haja Mccain MD Bacteria identified in Urine by Culture No Primary Care Physician Urine culture No Primary Car e Physician Urine culture No Primary Car e Physician Urine culture Dr. Angus Argueta Work Phone: Urine culture Dr. Angus Argueta Work Phone: Plan of Treatment Date Care Activity Detail Author Start: 12-24-2022 Anes transurethral resection of bladder tumor ANESTH BLADDER TUMOR SURG [facility] Start: 12-24-2022 Cysto w/insert ureteral stent CYSTOSCOPY AND TREATMENT [facility] Start: 12-24-2022 Cystourethroscopy w/dest &/rmvl med bladder krista CYSTOSCOPY AND TREATMENT [facility] Start: 12-24-2022 Patient discharge [facility] Start: 12-24-2022 Ambulation without limitation [facility] Start: 12-24-2022 Medication education [facility] Start: 12-24-2022 Taking patient vital signs [facility] Start: 12-24-2022 [facility] Start: 02-20-2018 End: 02-20-2018 Appointment Appointment [facility] Work Phone: Start: 02-16-2017 End: 02-16-2017 Appointment Appointment [facility] Work Phone: Start: 02-16-2017 End: 02-16-2017 *Hepatic Function Panel *Hepatic Function Panel [facility] Work Phone: Start: 02-16-2017 End: 02-16-2017 Follow Up Appt 1 year Follow Up Appt 1 year [facility] Work Phone: Start: 02-16-2017 End: 02-16-2017 Lipid panel [AGGREGATE] *Lipid Profile CC PCP [facility] Work Phone: Start: 02-16-2017 End: 02-16-2017 PFM PFM [facility] Work Phone: Start: 02-15-2017 End: 02-14-2017 *Hepatic Function Panel *Hepatic Function Panel [facility] Work Phone: Start: 02-15-2017 End: 02-14-2017 Lipid panel [AGGREGATE] *Lipid Profile CC PCP [facility] Work Phone: Start: 08-09-2016 End: 08-17-2016 *Hepatic Function Panel *Hepatic Function Panel [facility] Work Phone: Start: 08-09-2016 End: 08-17-2016 Lipid panel [AGGREGATE] *Lipid Profile CC PCP [facility] Work Phone: Start: 03-31-2016 End: 03-31-2016 Follow Up Appt 9 months Follow Up Appt 9 months [facility] Work Phone: Start: 03-31-2016 End: 03-31-2016 PFM PFM [facility] Work Phone: Start: 01-30-2016 End: 02-06-2016 *Hepatic Function Panel *Hepatic Function Panel [facility] Work Phone: Start: 01-30-2016 End: 02-06-2016 Lipid panel [AGGREGATE] *Lipid Profile CC PCP [facility] Work Phone: Start: 09-10-2015 End: 09-10-2015 Follow Up Appt 6 months Follow Up Appt 6 months [facility] Work Phone: Start: 09-10-2015 End: 09-10-2015 PFM PFM [facility] Work Phone: Start: 07-01-2015 End: 08-01-2015 *Hepatic Function Panel *Hepatic Function Panel [facility] Work Phone: Start: 07-01-2015 End: 08-01-2015 Lipid panel [AGGREGATE] *Lipid Profile CC PCP [facility] Work Phone: Start: 03-07-2015 End: 03-07-2015 Echocardiography Echocardiogram (complete) [facility] Work Phone: Start: 03-07-2015 End: 03-07-2015 Follow Up Appt 6 months Follow Up Appt 6 months [facility] Work Phone: Start: 03-07-2015 End: 03-07-2015 PFM PFM [facility] Work Phone: Start: 02-14-2015 End: 12-30-2014 *Hepatic Function Panel *Hepatic Function Panel [facility] Work Phone: Start: 02-14-2015 End: 12-30-2014 Lipid panel [AGGREGATE] *Lipid Profile CC PCP [facility] Work Phone: Start: 08-05-2014 End: 08-19-2014 *Hepatic Function Panel *Hepatic Function Panel [facility] Work Phone: Start: 08-05-2014 End: 08-06-2014 Electrocardiogram, complete EKG (In office) [facility] Work Phone: Start: 08-05-2014 End: 08-06-2014 Follow Up Appt 6 months Follow Up Appt 6 months [facility] Work Phone: Start: 08-05-2014 End: 08-19-2014 Lipid panel [AGGREGATE] *Lipid Profile CC PCP [facility] Work Phone: Start: 08-05-2014 End: 08-06-2014 PFM PFM [facility] Work Phone: Start: 01-21-2014 End: 01-21-2014 Echocardiography Echocardiogram (limited) [facility] Work Phone: Start: 01-21-2014 End: 01-21-2014 Electrocardiogram, complete EKG (In office) [facility] Work Phone: Start: 01-21-2014 End: 01-21-2014 Follow Up Appt 6 months Follow Up Appt 6 months [facility] Work Phone: Start: 01-21-2014 End: 01-21-2014 PFM PFM [facility] Work Phone: Start: 12-19-2013 End: 12-19-2013 24 hour holter monitor 24 hour holter monitor [facility] Work Phone: Start: 10-15-2013 End: 02-06-2016 Cardiac Rehab Cardiac Rehab [facility] Work Phone: Start: 10-15-2013 End: 10-15-2013 Cardiovascular stress test using treadmill Treadmill stress test (no imaging) [facility] Work Phone: Start: 10-15-2013 End: 10-15-2013 Electrocardiogram, complete EKG (In office) [facility] Work Phone: Start: 10-15-2013 End: 10-15-2013 Follow Up Appt 3 months Follow Up Appt 3 months [facility] Work Phone: Start: 10-15-2013 End: 10-15-2013 PFM PFM [facility] Work Phone: Start: 09-27-2013 End: 10-03-2013 *BMP *BMP [facility] Work Phone: Start: 09-27-2013 End: 10-03-2013 aPTT *PTT-Partial Thromboplastin Time [facility] Work Phone: Start: 09-27-2013 End: 10-03-2013 CBC W Auto Differential panel - Blood *CBC without Diff [facility] Work Phone: Start: 09-27-2013 End: 10-04-2013 Chest x-ray X-Ray, Chest, PA & Lateral [facility] Work Phone: Start: 09-27-2013 End: 10-03-2013 Coagulation factor induced.INR assay in platelet poor plasma *PT/INR [facility] Work Phone: Start: 09-27-2013 End: 09-27-2013 Electrocardiogram, complete EKG (In office) [facility] Work Phone: Start: 09-27-2013 End: 09-28-2013 Follow Up Appt Other Follow Up Appt Other [facility] Work Phone: Start: 09-27-2013 End: 09-28-2013 Left Heart Cath Left Heart Cath [facility] Work Phone: Start: 08-16-2013 End: 08-21-2013 *BMP *BMP [facility] Work Phone: Start: 08-16-2013 End: 08-21-2013 *CBC with Differential *CBC with Differential [facility] Work Phone: Start: 08-16-2013 End: 08-16-2013 24 hour holter monitor 24 hour holter monitor [facility] Work Phone: Start: 08-16-2013 End: 08-16-2013 Echocardiography Echocardiogram (complete) [facility] Work Phone: Start: 08-16-2013 End: 09-28-2013 Electrocardiogram, complete EKG (In office) [facility] Work Phone: Start: 08-16-2013 End: 08-16-2013 Follow Up Appt 6 weeks Follow Up Appt 6 weeks [facility] Work Phone: Start: 08-16-2013 End: 09-28-2013 Follow Up Appt Other Follow Up Appt Other [facility] Work Phone: Start: 08-16-2013 End: 08-21-2013 Magnesium *Magnesium [facility] Work Phone: Start: 08-16-2013 End: 08-16-2013 Nuclear stress test -exercise Nuclear stress test -exercise [facility] Work Phone: Start: 08-16-2013 End: 08-16-2013 PFM PFM [facility] Work Phone: Start: 08-16-2013 End: 08-21-2013 Thyroid stimulating hormone (TSH) *TSH [facility] Work Phone: Start: 08-16-2013 End: 08-21-2013 Thyroxine (T4) *T4 (Total) [facility] Work Phone: Patient Education [facility] Work Phone: Patient referral [facility] Work Phone: Radionuclide imaging of perfusion of myocardium under exercise stress [facility] Work Phone: Radionuclide imaging of perfusion of myocardium under exercise stress [facility] Payers Date Payer Category Payer Self-pay [id number] 2013 Medicare [id number] Unknown [id number] [id number] [id number] Unknown [id number] 2.16.8 [id number] Unknown [id number] 2.16.8 [id number] Unknown [id number] 2.16.8 [id number] Unknown [id number] 2.16.8 [id number] Unknown [id number] 2.16.8 [id number] Unknown [id number] 2.16.8 [id number] Social History Date Type Detail Facility Start: 05-11-2021 End: 08-15-2023 Tobacco smoking status WAIS Unknown if ever smoked [facility] Start: 1940 Sex Assigned At Male [facility] Start: 08-15-2023 [facility] Start: 09-19-2024 Sex Male (finding) [facility] Medical Equipment Procedure Code Equipment Code Equipment Origin al Text Equipment Identifier Dates STENT,URETERAL PIGTAIL [id number] FDA Start: 12-24-2022 STENT,URETERAL PIGTAIL [id number] FDA Start: 12-24-2022 STENT,URETERAL PIGTAIL [id number] FDA Start: 12-24-2022 STENT,URETERAL PIGTAIL [id number] FDA Start: 12-24-2022 STENT,URETERAL PIGTAIL [id number] FDA Start: 12-24-2022 STENT,URETERAL PIGTAIL [id number] FDA Start: 12-24-2022 Goals Date Patient Goal Desired Activity /State Mental Status Date Assessment Result Facility 12-24-2022 Cognitive function Level Of Cons ciousness Awake;Appropriate;Drowsy [facility] Work Phone: 12-24-2022 Cognitive function Voice/Name [facility] Work Phone: Evaluation note 08-30-2024 Note Date & Type Note Facility 08-30-2024 Evaluation note Diagnosis Onset Date Resolution Type 2 diabetes mellitus acute August 30, 2024 2:45pm Atherosclerotic heart disease of [place] coronary artery without angina pectoris chronic August 30, 2024 2:45pm Hypertension chronic August 2:45pm Pure hypercholesterolemia chronic August 30, 2024 2:45pm [facility] Work Phone: Discharge summary 12-24-2022 Note Date & Type Note Facility 12-24-2022 Discharge summary Note Date/Time December 24, 2022 1:22 pm [facility] Medical Records Department [address] [place] [address] Instructions for Home/Discharge Instructions 12/24/22 1321 MR#: [id number] Acct: [id number] Name: TATUM MARCUS Rep #:[id number] : 1940 82 From: Lavon Garcia MD PCP: Dr. Mendel Robison MD [place] [facility] [place] Instructions Diet Discharge Diet: No restrictions, Light diet - advance as tolerated and Soft diet Activity Discharge Activity: May Not Drive Lifting Restrictions: no heavy lifting Follow Up Care Please Follow Up With: Lavon Garcia MD When: if you have a [place] call for appt next to remove if not then follow up in 2 -3 weeks. Test Results: Test results from this visit will be discussed in further detail at your follow-up appointment, if applicable. Discharge Plan Admission Primary Reason for Your Visit: resection of bladder mass Attending Provider: Lavon Garcia Primary Care Provider: Mendel Robison Discharge Orders/Prescriptions Prescriptions: New ciprofloxacin HCl [Cipro] 500 mg tablet 500 mg PO BID Qty: 14 0RF oxycodone-acetaminophen [Endocet] 5-325 mg tablet 1 tab PO Q6H PRN (Reason: pain) 7 Days Qty: 14 0RF Continued coenzyme Q10 [Co Q-10] 100 mg capsule 100 mg PO QDAY red yeast rice 600 mg tablet 600 mg tablet 600 mg PO MOFR ascorbic acid (vitamin C) 1,000 mg tablet 1 g PO QWEEK lisinopril-hydrochlorothiazide 1 TABLET tablet 1 tab PO DAILY omega-3 fatty acids-fish oil 1 EACH capsule 1 ea PO BID metformin 500 mg tablet 500 mg PO BID metoprolol tartrate 25 mg tablet 12.5 mg PO BID vitamin B complex Tablet 1 tab PO DAILY zinc 50 mg Tablet 50 mg PO DAILY saw palmetto 320 mg Capsule 320 mg PO DAILY Rx Instructions: give with food (meal/snack) cholecalciferol (vitamin D3) [Vitamin D3] 50 mcg (2,000 unit) Tablet 50 mcg PO DAILY curcumin-phosphatidylcholine 500 mg Capsule 500 mg PO DAILY atorvastatin 40 mg tablet 80 mg PO QHS tamsulosin 0.4 mg Capsule 0.4 mg PO QHS Held aspirin 81 MG tablet,chewable 81 mg PO DAILY@0800 Hold Instructions: Resume on 01/07/23. Referrals / Follow Up: Mendel Robison MD [Primary Care Provider] - Lavon Garcia MD [Med Staff - Active Staff] - Disposition Disposition (needs filled in before D/C Order can be placed): Home, Self Care 12/24/22 1322<Electronically signed by Lavon Garcia MD>Lavon Garcia MD CC: Dr. Mendel Robison MD ~ Signed [facility] Work Phone: History and physical note 12-24-2022 Note Date & Type Note Facility 12-24-2022 History and physi humble note Note Date/Time December 24, 2022 1:21pm [facility] [place] [facility] Medical Records Department [address] [place] [address] History & Physical Exam 12/24/22 1320 MR#: [id number] Acct: [id number] Name: TATUM MARCUS Rep #:[id number] : 1940 82 From: Lavon Garcia MD PCP: Dr. Mendel Robison MD Status: [facility] Location: [facility] HPI - General HPI Narrative TATUM MARCUS, is a 82 M who presents for a transurethral resection of a large bladder mass instillation Mitomycin-C [facility] Medical History (Updated 12/24/22 @ 13:[address] Lavon Garcia MD) Alcohol use Atherosclerotic heart disease of [place] coronary artery without angina pectoris Cardiology follow-up encounter COVID-19 Former smoker High cholesterol History of echocardiogram History of kidney stones History of stress test Ischemic cardiomyopathy Premature atrial contractions Premature ventricular contraction Prostate disease Pure hypercholesterolemia Sinus bradycardia Type 2 diabetes mellitus Wears partial dentures Home Medications aspirin 81 mg chewable tablet 81 mg PO DAILY@0800 10/08/13 [History Last Taken 12/17/22] lisinopril 20 mg-hydrochlorothiazide 12.5 mg tablet 1 tab PO DAILY HTN 10/08/13 [History Last Taken 10/09/13] omega-3 fatty acids-fish oil 340 mg-1,000 mg capsule 1 ea PO BID SUPPLEMENT 10/08/13 [History Last Taken 12/17/22] coenzyme Q10 100 mg capsule (Co Q-10) 100 mg PO QDAY 02/16/18 [History Last Taken Unknown] red yeast rice 600 mg tablet 600 mg PO MOFR SUPPLEMENT 02/16/18 [History Last Taken Unknown] metformin 500 mg tablet 500 mg PO BID BLOOD GLUCOSE 05/07/19 [History Last Taken Unknown] metoprolol tartrate 25 mg tablet 12.5 mg PO BID 05/07/19 [History Last Taken 12/24/22] ascorbic acid (vitamin C) 1,000 mg tablet 1 g PO QWEEK 05/11/21 [History Last Taken Unknown] atorvastatin 40 mg tablet 80 mg PO QHS HLD 12/17/22 [History Last Taken Unknown] cholecalciferol (vitamin D3) 50 mcg (2,000 unit) tablet (Vitamin D3) 50 mcg PO DAILY 12/17/22 [History Last Taken Unknown] curcumin-phosphatidylcholine 500 mg capsule 500 mg PO DAILY 12/17/22 [History Last Taken Unknown] saw palmetto 320 mg capsule 320 mg PO DAILY 12/17/22 [History Last Taken Unknown] tamsulosin 0.4 mg capsule 0.4 mg PO QHS 12/17/22 [History Last Taken Unknown] vitamin B complex 1 tab PO DAILY 12/17/22 [History Last Taken Unknown] zinc 50 mg tablet 50 mg PO DAILY 12/17/22 [History Last Taken Unknown] ciprofloxacin HCl 500 mg tablet (Cipro) 500 mg PO BID #14 tabs 12/24/22 [Rx Last Taken Unknown] oxycodone-acetaminophen 5 mg-325 mg tablet (Endocet) 1 tab PO Q6H PRN pain 7 days #14 tabs 12/24/22 [Rx Last Taken Unknown] Allergy/AdvReac Type Severity Reaction Status Date / Time No Known Allergies Allergy Verified 12/24/22 11:39 Family History Sister CAD (coronary artery disease) CVA (cerebral vascular accident) Diabetes Father Parkinsons disease Mother Cancer kidney Surgical History (Updated 12/17/22 @ 13:55 by Sri Caldwell) History of colonoscopy History of hand surgery Postsurgical percutaneous transluminal coronary angioplasty (PTCA) status (~10/09/13) Presence of stent in coronary artery (~10/09/13) Social History Smoking Status: Former smoker how long ago did patient quit smokin years ago alcohol intake: current alcohol intake frequency: a few times a week Alcohol type: beer and wine caffeine: Yes Type: coffee Number of servings: 3 what type of physical activity do you participate in: walking and bicycling frequency: 3-4 times per week duration: 30-45 minutes/day Vital Signs Vital Signs Vital Signs: 12/24/22 11:42 12/24/22 11:42 Temperature 97.1 F L Temperature Source Temporal Pulse Rate 56 L Respiratory Rate 18 Respiratory Pattern Normal Blood Pressure 149/72 H Blood Pressure Mean 97 Blood Pressure Source Monitor Blood Pressure Position Semi-Fowlers Blood Pressure Location Right Arm Pulse Ox 99 Oxygen Delivery Method Room Air Weight Weight: 103.7 kg Body Mass Index (BMI) 30.2 Results Lab / Micro Data Labs: Laboratory Results - last 24 hr 12/24/22 11:28: POC Glucose 126 H 12/24/22 1321 <Electronically signed by Lavon Garcia MD> Cosigner Signature (if applicable): CC: Dr. Mendel Robison MD; Dr. Lavon Garcia MD~ Signed [facility] Work Phone: Procedure note 12-24-2022 Note Date & Type Note Facility 12-24-[address] 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 Presence of stent in coronar y artery October, chronic Pure hypercholesterolemia ch ronic Sinus bradycardia resolved [facility] Work Phone: Evaluation note Note Date & Type Note Facility Evaluation note No assessment information availa ble [facility] Work Phone: Evaluation note Note Date & Type Note Facility Evaluation note Diagnosis Onset Date Dyspnea acute Premature atrial contractions acute Premature ventricular contraction acute Atherosclerotic heart diseas e of [place] coronary artery without angina pectoris chronic Ischemic cardiomyopathy 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 Presence of stent in coronar y artery October, chronic Pure hypercholesterolemia ch ronic Sinus bradycardia resolved [facility] Work Phone: Hospital Discharge instructions Note Date & Type Note Facility Hospital Discharge instructions Additional Instructions Implant Used?: Yes [facility] Work Phone: Reason for referral (narrative) Note Date & Type Note Facility Reason for referral (narrative) No reason for referral information available [facility] Work Phone: Family History Relationship Condition Age at Onset Recorded Date/T maurice sister Coronary artery disease Unknown Cerebrovascular accident (CVA) Unknown Diabetes mellitus Unknown father Parkinson's disease Unknown mother Malignant neoplasm Unknown Advance Directives Advance Directive Response Recorded Date/ Time Living Will Yes October 09, 2013 9:02am Power of Director Labor Standards Yes October 09 9:02am Advance Directive Response Recorded Date/ Time Living Will Yes October 09, 2013 8:02am Power of Director Labor Standards Yes October 09 4 8:02am Advance Directive Response Recorded Date/ Time Name of Medical Power of Director Labor Standards IGNACIO QUINTERO December 17, 2022 1:55pm Living Will Yes December 17, 2022 1 :55pm Power of Director Labor Standards Yes December 17, 2022 1:55pm Advance Directive Response Recorded Date/ Time Living Will Yes December 17, 2022 1 2:55pm Power of Director Labor Standards Yes December 17, 2022 12:55pm Advance Directive Response Recorded Date/ Time Living Will Yes December 17, 2022 1 :55pm Power of Director Labor Standards Yes December 17, 2022 1:55pm Chief Complaint and Reason for Visit Chief Complaint 1 y fu Reason for Visit Dyspnea Premature atrial contractions Premature ventricular contraction Atherosclerotic heart disease of [place] coronary artery without angina pectoris Ischemic cardiomyopathy Presence of stent in coronary artery Pure hypercholesterolemia Sinus bradycardia Chief Complaint 1 y fu DYSPNEA DYSPNEA Reason for Visit Dyspnea Premature atrial contractions Premature ventricular contraction Atherosclerotic heart disease of [place] coronary artery without angina pectoris Ischemic cardiomyopathy Presence of stent in coronary artery Pure hypercholesterolemia Sinus bradycardia Chief Complaint DYSPNEA DYSPNEA EORDER Chief Complaint DYSPNEA DYSPNEA EORDER EORDER HEMATURIA Chief Complaint EORDER EORDER HEMATURIA turbt with olympus, jose angel c Chief Complaint EORDER HEMATURIA PREOP turbt with [employer]lymp[employer], jose angel c E ORDER Chief Complaint URINE SAMPLE Chief Complaint URINE SAMPLE 1 Y FU Malignant neoplasm of lateral wall of bladder Reason for Visit Premature atrial con tractions Premature ventricular contraction Ischemic cardiomyopathy Presence of stent in coronary artery Pure hypercholesterolemia Sinus bradycardia Chief Complaint Admit Date 1 Y FU August 30, 2024 2:45pm Reason for Visit Admit Date Type 2 diabetes mellitus August 30, 2024 2:45pm Atherosclerotic heart diseas e of [place] coronary artery without angina pectoris August 30, 2024 2:45pm Hypertension August 30, 2024 2:45pm Pure hypercholesterolemia August 30, 2024 2:45pm Summary Purpose Additional Source Comments Goals (unrecognized section and content) Goals may be documented in a n alternate sectionGoals may be documented in an alternate sectionGoals may be documented in an alternate sectionGoals may be documented in an alternate sectionGoals may be documented in an alternate sectionGoals may be documented in an alternate sectionGoals may be documented in an alternate sectionGoals may be documented in an alternate sectionGoals may be documented in an alternate sectionGoals may be documented in an alternate sectionGoals may be documented in an alternate sectionGoals may be documented in an alternate sectionGoals may be documented in an alternate section Care Teams (unrecognized sec tion and content) Team Status: Active Member Role Status Dates Dr. Edgard Flannery MD Family Provider Active Dr. Angus Argueta MD Primary Care Provider Active Team Status: Inactive Member Role Status Dates No Primary Care Physician Referring Provider Active Dr. Haja Mccain MD Attending Provider Active Dr. Angus Argueta MD Primary Care Provider Active Team Status: Inactive Member Role Status Dates Dr. Angus Argueta MD Primary Care Provider, Attending P rovider Active Team Status: Inactive Member Role Status Dates Dr. Angus Argueta MD Primary Care Provider, Referring P rovider Active Dr. Mendel Robison MD Attending Provider Active Team Status: Active Member Role Status Dates Dr. Angus Argueta MD Primary Care Provider Active Dr. Haja Mccain MD Attending Provider, Other Prov ider Active Team Status: Inactive Member Role Status Dates Dr. Angus Argueta MD Primary Care Provider Active Dr. Haja Mccain MD Attending Provider Active Team Status: Active Member Role Status Dates Dr. Edgard Flannery MD Family Provider Active Dr. Mendel Robison MD Primary Care Provider Activ e Team Status: Active Member Role Status Dates Dr. Angus Argueta MD Primary Care Provider Active Dr. Haja Mccain MD Attending Provid er, Referring Provider, Other Provider Active Team Status: Inactive Member Role Status Dates Dr. Mendel Robison MD Primary Care Provider, Attending Provider, Referring Provider Active Team Status: Inactive Member Role Status Dates Dr. Mendel Robison MD Primary Care Provider Activ e Dr. Angus Argueta MD Attending Provider Active Team Status: Active Member Role Status Dates Dr. Mendel Robison MD Primary Care Provider, Attending Provider, Referring Provider Active Team Status: Inactive Member Role Status Dates Dr. Mendel Robison MD Primary Care Provider Activ e Dr. Lavon Garcia MD Attending Provider, Referr ing Provider Active Team Status: Active Member Role Status Dates Dr. Mendel Robison MD Primary Care Provider Activ e Dr. Marleny Hu MD Attending Provider Activ e Dr. Lavon Garcia MD Referring Provider Active Team Status: Inactive Member Role Status Dates Dr. Mendel Robison MD Primary Care Provider, Atte nding Provider Active Team Status: Inactive Member Role Status Dates Dr. Angus Argueta MD Referring Provider Active Edgard Merino FRONT OFFICE MANAGER, FRONT OFFICE MANAGER-C Attending Provider Active Dr. Mendel Robison MD Primary Care Provider Activ e Team Status: Active Member Role Status Dates Dr. Edgard Flannery MD Family Provider Active Dr. Margarito Robison MD Primary Care Provider Acti ve Team Status: Inactive Member Role Status Dates Dr. Angus Argueta MD Referring Provider Active Edgard Merino FRONT OFFICE MANAGER, FRONT OFFICE MANAGER-C Attending Provider Active Dr. Margarito Robison MD Primary Care Provider Acti ve Team Status: Inactive Member Role Status Dates Dr. Margarito Robison MD Primary Care Provider Acti ve Dr. Lavon Garcia MD Attending Provider, Referr ing Provider Active Team Status: Inactive Member Role Status Dates Dr. Margarito Robison MD Primary Care Provider Acti ve Start: August 30, 2024 End: August 30, 2024 Dr. Margarito Robison MD Referring Provider Active Start: August 30, 2024 End: August 30, 2024 Dr. Augustin Begum MD Attending Provider Active Start: August 30, 2024 End: August 30, 2024 Team Status: Inactive Member Role Status Dates Dr. Margarito Robison MD Primary Care Provider Acti ve Start: September 04, 2024 End: September 04, 2024 Dr. Margarito Robison MD Attending Provider Active Start: September 04, 2024 End: September 04, 2024 Dr. Margarito Robison MD Referring Provider Active Start: September 04, 2024 End: September 04, 2024 (unrecognized sect ion and content) No Status Records Found INFORMATION SOURCE (unrecogn ized section and content) DATE CREATED AUTHOR 09/22/2024 [facility] FOR RECORDS PERTAINING TO PATIENTS WHO ARE OR HAVE BEEN ENROLLED IN A CHEMICAL DEPENDENCY/SUBSTANCEABUSE PROGRAM, SOME INFORMATION MAY BE OMITTED. This clinical summary was aggregated from multiple sources. Caution should be exercised in using it in the provision of clinical care. This summary normalizes information from multiple sources, and as a consequence, information in this document may materially change the coding, format and clinical context of patient data. In addition, data may be omitted in some cases. CLINICAL DECISIONS SHOULD BE BASED ON THE PRIMARY CLINICAL RECORDS. [employer] provides no warranty or guarantee of the accuracy or completeness of information in this document.
[2025-03-01 10:51] LABS: AST(SGOT) 23 U/L (<=37); Alanine Aminotransfer ALT/SGPT 25 U/L (<=46); Albumin, Serum 3.8 g/dL (3.4-4.8); Alkaline Phosphatase 118 U/L (40-129); Anion Gap 12 (5-15); BUN 14 mg/dL (4-19); BUN/Creat Ratio 9.9 RATIO (10-20); Calcium,Total 9.7 mg/dL (7.6-11.0); Carbon Dioxide 23.2 mmol/L (21.0-32.0); Chloride 103 mmol/L (98-108); Cholesterol 113 mg/dL (<=200); Globulin 2.9 g/dL (2.2-4.2); Glucose 168 mg/dL (70-99); Low Density Lipoprotein Calc. 41 mg/dL; Potassium 4.5 mmol/L (3.3-5.1); Triglycerides 76 mg/dL; Very Low Density Lipoprotein 15 mg/dL (5-40); cholesterol:hdl ratio screen 2.01
== END | disposition home or self-care (01) ==
LOC: MFPLAB 08:14
PROVIDERS: PCP Family Medicine; Referring Provider Family Medicine; Visit Provider Family Medicine
DX: E11.65 Type 2 diabetes mellitus with hyperglycemia (principal)
CPT/HCPCS: 36415; 80053; 80061